=== PATIENT | male | born 1945 | race Caucasian/White ===

== ENCOUNTER → 2019-10-21 13:56 | Outpatient (BNVA) | payer MEDICARE, OTHER, SELFPAY | PROVIDERS: Family Provider Family Medicine; PCP Family Medicine; Visit Provider Nurse Practitioner Family | DX: N40.1 Benign prostatic hyperplasia with lower urinary tract symptoms (principal) | CPT/HCPCS: 81001 ==

== ENCOUNTER → 2019-12-20 10:18 | Outpatient (BNVA) | payer MEDICARE, OTHER, SELFPAY | PROVIDERS: Family Provider Family Medicine; PCP Family Medicine; Visit Provider Urology | DX: N40.1 Benign prostatic hyperplasia with lower urinary tract symptoms (principal); R39.14 Feeling of incomplete bladder emptying; R35.8 Other polyuria | CPT/HCPCS: 81001 ==

== ENCOUNTER 2020-03-20 10:55 | Outpatient (CLI) | payer MEDICARE, OTHER, SELFPAY ==
[2020-03-20 12:01] LABS: Basophils # 0.1 10^3/uL (0.0-0.1); Basophils % 0.7 %; Eosinophils # 0.1 10^3/uL (0.0-0.8); Eosinophils % 1.3 %; Hematocrit 44.2 % (42.0-52.0); Hemoglobin 14.6 g/dL (11.7-16.6); Lymphocytes # 1.4 10^3/uL (0.8-4.8); Lymphocytes % 20.2 %; Mean Corpuscular Hemoglobin 30.4 pg (28.0-34.0); Mean Corpuscular Volume 92.1 fL (80-94); Mean Platelet Volume 10.4 fL (7.4-10.4); Monocytes # 0.5 10^3/uL (0.2-0.9); Monocytes % 7.4 %; Nucleated Red Blood Cells % 0 %; Platelet Count 202 10^3/cmm (130-400); Red Cell Distribution Width 13.2 % (12.1-15.1); White Blood Count 7.1 10^3/uL (4.0-10.0)
[2020-03-20 12:17] LABS: Albumin Level 5.1 g/dL (3.5-5.2); Anion Gap 14.1 (5-19); Blood Urea Nitrogen 25 mg/dL (8-23); Calcium 9.5 mg/dL (8.5-10.5); Carbon Dioxide 27 mmol/L (22-29); Chloride 102 mmol/L (98-107); Glucose 101 mg/dL (65-115); Phosphorus 3.7 mg/dL (2.5-4.5); Potassium 4.1 mmol/L (3.5-5.1); Sodium 139 mmol/L (136-145)
[2020-03-20 12:21] LABS: Creatinine Urine, Random 66 mg/dL (39-259); Microalbum Creatinine Ratio Ur 30 mg/dL (0-20); Microalbumin Random Urine 2 ug/dL (0-20)
[2020-03-20 13:37] LABS: Calcium 9.6 mg/dL (8.5-10.5); Parathyroid Hormone 33.1 pg/mL (15-65)
== END 2020-03-20 10:56 | disposition home or self-care (01) ==
LOC: LAB 11:01
PROVIDERS: PCP Family Medicine; Visit Provider Internal Medicine Nephrology
DX: N18.3 Chronic kidney disease, stage 3 (moderate) (principal)
CPT/HCPCS: 36415; 80069; 82044; 82310; 83970; 85025

== ENCOUNTER 2020-05-08 15:32 | Outpatient (CLI) | payer OTHER, SELFPAY ==
--- NOTE | 2020-05-08 | US_ITS ---
WS: [id number] RENAL ULTRASOUND Urinary bladder ultrasound HISTORY: CYST COMPARISON: 06/14/2019 TECHNIQUE: 2-D and color Doppler imaging of the kidney submitted. Right kidney: 9.1 cm x 4.9 cm x 4.2 cm. Normal size kidney. Exophytic cyst from the upper pole measures 2.8 x 3.4 x 2.9 cm. Similar to the pr ior study. No hydronephrosis. There is additional smaller cyst from the inferior kidney. Left kidney: 12.1 cm x 5.0 cm x 6.4 cm. Normal size kidney. There is a large cyst from the superior kidney measures at least 13.7 x 16.4 cm. Similar to the prior study. There are additional smaller cysts. No solid masses. Aorta: Normal. Urinary Bladder: Moderately well distended urinary bladder. There are multiple diverticula from the b ladder. From the dome of the bladder is a diverticulum measuring 2.8 x 2.0 x 3.5 cm. Additional small er diverticulum from the RIGHT lateral bladder wall. Mild hypertrophy of the bladder wall. Prevoid volume 300 mL. Post void volume 214 mL. US/US renal BI with bladder IMPRESSION: 1. Large bilateral renal cysts with no hydronephrosis. Similar in size and yovana earance as to 06/14/2019. 2. Moderate post void residual in the urinary bladder. 3. Numerous bladder diverticula. Mild bladder wall hypertrophy.
== END 2020-05-08 15:33 | disposition home or self-care (01) ==
LOC: US 15:32
PROVIDERS: PCP Family Medicine; Visit Provider Registered Nurse
DX: N28.1 Cyst of kidney, acquired (principal); N32.3 Diverticulum of bladder
CPT/HCPCS: 76770; 76857

== ENCOUNTER → 2020-05-22 10:39 | Outpatient (BNVA) | payer OTHER, SELFPAY | PROVIDERS: PCP Family Medicine; Visit Provider Family Medicine | DX: I10 Essential (primary) hypertension (principal) | CPT/HCPCS: 80048 ==

== ENCOUNTER → 2020-07-10 10:52 | Outpatient (BNVA) | payer MEDICARE, OTHER, SELFPAY | PROVIDERS: PCP Family Medicine; Visit Provider Urology | DX: N40.1 Benign prostatic hyperplasia with lower urinary tract symptoms (principal); R39.14 Feeling of incomplete bladder emptying; R35.8 Other polyuria | CPT/HCPCS: 81001 ==

== ENCOUNTER 2021-03-27 12:43 | Outpatient (CLI) | payer MEDICARE, OTHER, SELFPAY ==
--- NOTE | 2021-03-27 13:00 | MR_ITS ---
WS: [id number] MRI LUMBAR SPINE NONCONTRAST HISTORY: increasing pain/weakness left leg COMPARISON: 04/29/2014 TECHNIQUE: Sagittal and axial multisequence imaging is submitted. Increase in thoracic kyphosis and cervical lordosis. Retrolisthesis of L2, L3 and L4 by 2 mm. Mild reactive marrow edema in the endplates of L2 and L3. No compression fractures. Moderate to severe disc space narrowing and desiccation throughout the lumbar spine. Moderate progres dawn of degenerative changes since 2013. Conus terminates normally at L1-2 disc level. L1-L2: Mild bilateral facet joint arthritis and ligamentum flavum hypertrophy. No significant stenosi s. L2-L3: Diffuse annular disc bulging and osteophytic ridging with moderate ligamentum flavum hypertrop hy and facet arthritis. Disc extends asymmetrically into the RIGHT foramen. Mild central stenosis. Mo derate RIGHT lateral recess stenosis and mild on the LEFT with mild foraminal narrowing. Mild encroac hment upon the RIGHT L3 nerve root. L3-L4: Diffuse moderate annular disc bulging and osteophytic ridging. Moderate bilateral facet joint arthritis and ligamentum flavum hypertrophy. Disc and osteophyte encroachment into the lateral recess es and subarticular foramen and neural foramen. Moderate bilateral foraminal stenosis. L4-L5: Moderate annular disc bulging and osteophytic ridging. Ligamentum flavum hypertrophy and facet arthritis. There is disc encroachment into the lateral recesses bilaterally and foramen. Disc contac ts the L5 nerve roots bilaterally with additional moderate bilateral foraminal stenosis. L5-S1: Diffuse annular disc bulging and facet arthritis. Central disc protrusion. Mild bilateral fora shahab narrowing. Large bilateral renal cysts. Largest cyst is incompletely visualized involving the LEFT kidney. MR/MR lumbar spine wo con* [id number] IMPRESSION: 1. Mild progression of multilevel stenoses since 04/29/2014. 2. Mild central stenosis at L2-3 with moderate RIGHT lateral recess stenosis. Mild encroachment upon the RIGHT L3 nerve root. 3. Moderate bilateral foraminal stenosis at L3-4 due to combination of disc di sease, osteophytes and facet disease. 4. Disc and osteophyte encroachment into the lateral recesses and foramina marek aterally at L4-5 with contact on the L5 nerve roots. Moderate bilateral foramin al stenosis. 5. Central disc protrusion with mild bilateral foraminal stenosis at L5-S1.
== END 2021-03-27 12:44 | disposition home or self-care (01) ==
LOC: RADSHAW 12:47
PROVIDERS: PCP Family Medicine; Visit Provider Family Medicine
DX: M79.605 Pain in left leg (principal); M62.81 Muscle weakness (generalized); M48.061 Spinal stenosis, lumbar region without neurogenic claudication; M51.27 Other intervertebral disc displacement, lumbosacral region; M48.07 Spinal stenosis, lumbosacral region; M25.78 Osteophyte, vertebrae
CPT/HCPCS: 72148

== ENCOUNTER → 2021-04-17 16:06 | Outpatient (BNVA) | payer MEDICARE, OTHER, SELFPAY | PROVIDERS: PCP Family Medicine; Referring Provider Family Medicine; Visit Provider Orthopaedic Surgery | DX: M48.061 Spinal stenosis, lumbar region without neurogenic claudication (principal) | CPT/HCPCS: 72110 ==

== ENCOUNTER → 2021-04-23 08:27 | Outpatient (BNVA) | payer MEDICARE, OTHER, SELFPAY | PROVIDERS: PCP Family Medicine; Visit Provider Anesthesiology Pain Medicine | DX: G89.29 Other chronic pain (principal); M48.062 Spinal stenosis, lumbar region with neurogenic claudication; M48.061 Spinal stenosis, lumbar region without neurogenic claudication; M47.816 Spondylosis without myelopathy or radiculopathy, lumbar region; Z79.891 Long term (current) use of opiate analgesic | CPT/HCPCS: 99205 ==

== ENCOUNTER 2021-05-21 06:00 | Outpatient (RCR) | payer MEDICARE, OTHER, SELFPAY | END 2021-06-05 23:59 | disposition home or self-care (01) | LOC: SPT 06:00 | PROVIDERS: PCP Family Medicine; Referring Provider Anesthesiology Pain Medicine; Visit Provider Anesthesiology Pain Medicine | DX: M54.5 Low back pain (principal); G89.29 Other chronic pain | CPT/HCPCS: 97110; 97161; G0283 ==

== ENCOUNTER 2021-06-06 06:00 | Outpatient (RCR) | payer MEDICARE, OTHER, SELFPAY | END 2021-07-05 23:59 | disposition home or self-care (01) | LOC: SPT 06:00 | PROVIDERS: PCP Family Medicine; Referring Provider Anesthesiology Pain Medicine; Visit Provider Anesthesiology Pain Medicine | DX: M54.5 Low back pain (principal); G89.29 Other chronic pain | CPT/HCPCS: 97110; G0283 ==

== ENCOUNTER → 2021-06-25 09:41 | Outpatient (BNVA) | payer MEDICARE, OTHER, SELFPAY | PROVIDERS: PCP Family Medicine; Visit Provider Anesthesiology Pain Medicine | DX: M48.062 Spinal stenosis, lumbar region with neurogenic claudication (principal); M48.061 Spinal stenosis, lumbar region without neurogenic claudication; M47.816 Spondylosis without myelopathy or radiculopathy, lumbar region; M79.604 Pain in right leg; M79.605 Pain in left leg; Z79.891 Long term (current) use of opiate analgesic | CPT/HCPCS: 99213 ==

== ENCOUNTER → 2021-07-09 10:46 | Outpatient (BNVA) | payer MEDICARE, OTHER, SELFPAY | PROVIDERS: PCP Family Medicine; Visit Provider Urology | DX: N40.1 Benign prostatic hyperplasia with lower urinary tract symptoms (principal); R39.14 Feeling of incomplete bladder emptying; N32.81 Overactive bladder | CPT/HCPCS: 81003 ==

== ENCOUNTER 2021-12-26 12:26 | Emergency (ER) | payer MEDICARE, OTHER, SELFPAY ==
[2021-12-26 12:43] VITALS: BP 151/91; PULSE 84; RESP 20; TEMP 36.6; O2SAT 95; BMI 33.5
[2021-12-26 12:46] VITALS: O2SAT 96
--- NOTE | 2021-12-26 12:46 | XRR_ITS ---
PROCEDURE INFORMATION: Exam: XR Chest Exam date and time: 12/26/2021 12:00 PM Age: 76 years old Clinical indication: Cough and dyspnea; Additional info: Dyspnea/cough TECHNIQUE: Imaging protocol: XR of the chest. Views: 1 view. Total images: 1 COMPARISON: CR Chest 1 [place] [id number] 06/04/2017 8:47 PM FINDINGS: Lungs: No acute focal pulmonary opacities are detected. Pleural spaces: Unremarkable. No pleural effusion. No pneumothorax. Heart/Mediastinum: Heart is enlarged but stable when compared to the prior exam. Vasculature: Atherosclerosis is evident. Bones/joints: Osseous structures are unchanged from the prior exam. XR/XR chest 1V portable [id number] IMPRESSION: 1. Heart is enlarged but stable when compared to the prior exam. 2. No acute focal pulmonary opacities are detected.
--- NOTE | 2021-12-26 13:01 | ECG_ITS ---
[facility] Test Date: 2021-12-26 Pat Name: Blake Head Department: Room: Gender: Male Manager Procurement: : 1945 Requested By: Shahzad Us Order Number: [id number] Kinza MD: Jonnie Chen M.D. Measurements Intervals [place] Rate: 77 P: [place]: QRS: 34 QRSD: 93 T: 31 QT: 391 QTc: 444 Interpretive Statements ATRIAL FIBRILLATION ABNORMAL RHYTHM ECG Compared to ECG 06/04/2017 20:43:34 No significant changes Electronically Signed On 12-26-2021 19:18:54 CDT by Jonnie Chen M.D. [id number]
--- NOTE | 2021-12-26 13:02 | W.ED.COVID ---
HPI - COVID General: Chief Complaint: COVID symptoms Stated Complaint: Fever, COVID Symptoms Time Seen by Provider: 12/26/21 12:46 Source: patient and family Mode of arrival: ambulatory Triage information: Has fever, cough or shortness of breath. History of Present Illness: 76-year-old male presents emergency room with a nonproductive cough for the last 10 days fever with temps up to 101 and 102 at home. Took Tylenol this morning and fevers resolved. He is complained of myalgias also had diarrhea. He was seen by his PCP and started on Zithromax for an upper respiratory infection he has been vaccinated for COVID but is not been known to have COVID by positive testing in the past. MD complaint: has COVID symptoms COVID 19 common symptoms: positive fever(s), chills, cough, non-productive cough, dyspnea, fatigue, body aches and diarrhea; negative throat pain or nasal congestion COVID 19 other sytmptoms: negative chest pain or requiring oxygen Onset (ago): day(s) (10) Severity: mild Pertinent comorbid conditions: chronic kidney disease and other (Congestive heart failure, atrial fibrillation) COVID Results: SARS-CoV-2 (PCR) Detected (NOT DETECT) A 12/26/21 13:15 12/26/21 Coronavirus Type 229E (PCR) Not detected (NOT DETECT) 12/26/21 13:15 12/26/21 Review of Systems Const: Reports: fever(s), chills, body aches and fatigue ENMT: Denies: throat pain, ear or mastoid pain, nasal discharge or nasal congestion Card: Denies: chest pain, edema, dyspnea on exertion or orthopnea Resp: Reports: dyspnea and non-productive cough GI: Reports: diarrhea : Denies: flank pain, dysuria, urinary frequency or urinary urgency Skin/Breast: Denies: rash or pruritus PFSH ED PFSH: Medical History Allergic rhinitis ASHD (arteriosclerotic heart disease) Atrial fibrillation Benign prostatic hyperplasia with lower urinary tract symptoms CVA (cerebral vascular accident) DDD (degenerative disc disease) Dementia Depression Esophageal reflux Hearing loss History of nonmelanoma skin cancer Hyperlipidemia Hypertension Osteoarthritis Osteoarthritis of left knee Polyuria Spinal stenosis at L4-L5 level Venous insufficiency Surgical History S/P cataract surgery S/P cholecystectomy Family History Mother , 88 Diabetes CAD (coronary artery disease) Father , 80 CAD (coronary artery disease) Stroke Social History Smoking and tobacco status: never smoked Alcohol intake: never Adopted: No Caregiver/support person: No Lives independently: No Household members: spouse Marital status: Current occupational status: retired History of recent travel: No Current gender identity: Male Physical Exam Const: GENERAL APPEARANCE: cooperative and comfortable ORIENTATION/CONSCIOUSNESS: Yes awake HENMT: COMMON NORMALS: normocephalic, atraumatic and hearing grossly normal bilaterally HEAD & SCALP: normocephalic and atraumatic Neck/C-Spine: COMMON NORMALS: no JVD Resp: COMMON NORMALS: normal respiratory effort, No retractions, No use of accessory muscles and clear to auscultation bilaterally AUSCULTATION: clear to auscultation bilaterally Cardio: COMMON NORMALS: no JVD, regular rate and No murmurs present (Cardio) RATE: regular rate RHYTHM: abnormal rhythm irregularly irregular GI: COMMON NORMALS: Soft to palpation and No hepatosplenomegaly present AUSCULTATION: Yes normoactive bowel sounds PALPATION: Yes Soft to palpation, No Tenderness to palpation present (GI), No Guarding due to palpation present (GI) and Yes No hepatosplenomegaly present Extremity: COMMON NORMALS: normal to inspection, capillary refill normal, no clubbing, cyanosis or edema, no calf tenderness and no pedal edema Skin: COMMON NORMALS: no rashes or lesions noted GENERAL SKIN EXAM: no rashes or lesions noted Course Vital Signs: Vital signs: Vital Signs Temperature 97.9 F 12/26/21 12:43 Pulse Rate 85 12/26/21 14:16 Respiratory Rate 16 12/26/21 14:16 Blood Pressure 136/78 12/26/21 14:16 Pulse Oximetry 94 12/26/21 14:16 MDM - COVID Medical Decision Making Covid positive we will set him up for outpatient monoclonal antibody test. He is essentially asymptomatic because he has been vaccinated he tested without symptoms on a rapid yesterday and was positive so he will definitely still be within a 7-day range. Monoclonal antibodies should prevent any worsening of the disease. Recheck if has any problems or shortness of breath. Medical Records I reviewed the patient's medical records. Lab Data I reviewed the patient's lab results. : 12/26/21 13:15 12/26/21 13:15 Radiology Impressions Chest X-Ray 12/26/21 12:46 IMPRESSION: 1. Heart is enlarged but stable when compared to the prior exam. 2. No acute focal pulmonary opacities are detected. Laboratory Results WBC 7.6 10^3/uL (4.0-10.0) 12/26/21 13:15 RBC 4.75 10^6/uL (4.1-5.3) 12/26/21 13:15 Hgb 14.1 g/dL (11.7-16.6) 12/26/21 13:15 Hct 42.3 % (42.0-52.0) 12/26/21 13:15 MCV 89.1 fl (80-94) 12/26/21 13:15 MCH 29.7 pg (28.0-34.0) 12/26/21 13:15 MCHC 33.3 g/dL (30.0-36.0) 12/26/21 13:15 RDW 13.2 % (12.1-15.1) 12/26/21 13:15 Plt Count 226 10^3/cmm (130-400) 12/26/21 13:15 MPV 9.8 fL (7.4-10.4) 12/26/21 13:15 Neut % (Auto) 83.3 % 12/26/21 13:15 Lymph % (Auto) 7.3 % 12/26/21 13:15 Taliaferro % (Auto) 8.6 % 12/26/21 13:15 Eos % (Auto) 0.0 % 12/26/21 13:15 Baso % (Auto) 0.1 % 12/26/21 13:15 Neut # (Auto) 6.31 10^3/uL (1.8-7.7) 12/26/21 13:15 Lymph # (Auto) 0.6 10^3/uL (0.8-4.8) L 12/26/21 13:15 Tal[place]ferro # (Auto) 0.7 10^3/uL (0.2-0.9) 12/26/21 13:15 Eos # (Auto) 0.0 10^3/uL (0.0-0.8) 12/26/21 13:15 Baso # (Auto) 0.0 10^3/uL (0.0-0.1) 12/26/21 13:15 Nucleated RBC % (auto) 0 % 12/26/21 13:15 Nucleated RBCs # 0.0 /100WBC 12/26/21 13:15 Sodium 133 mmol/L (136-145) L 12/26/21 13:15 Potassium 4.1 mmol/L (3.5-5.1) 12/26/21 13:15 Chloride 98 mmol/L (98-107) 12/26/21 13:15 Carbon Dioxide 24 mmol/L (22-29) 12/26/21 13:15 Anion Gap 15.1 (5-19) 12/26/21 13:15 BUN 25 mg/dL (8-23) H 12/26/21 13:15 Creatinine 1.8 mg/dL (0.7-1.2) H 12/26/21 13:15 GFR Calculation Not Reportable 12/26/21 13:15 Glucose 106 mg/dL (65-115) 12/26/21 13:15 Calculated Osmolality 281 mOsm/kg (285-295) L 12/26/21 13:15 Calcium 8.9 mg/dL (8.5-10.5) 12/26/21 13:15 Total Bilirubin 0.7 mg/dL (0.15-1.2) 12/26/21 13:15 AST 35 U/L (0-40) 12/26/21 13:15 ALT 22 U/L (0-41) 12/26/21 13:15 Alkaline Phosphatase 36 IU/L (40-130) L 12/26/21 13:15 Troponin T Baseline 30 ng/L (0-15) H 12/26/21 13:15 Troponin T 120 Minute 26.78 ng/L (0-15) H 12/26/21 15:19 Delta Troponin T -3.22 ABS# (0-10) L 12/26/21 15:19 NT-Pro-B Natriuret Pep 1686 pg/mL (0-450) H 12/26/21 13:15 Total Protein 6.8 g/dL (6.6-8.7) 12/26/21 13:15 Albumin 4.1 g/dL (3.5-5.2) 12/26/21 13:15 Globulin 2.7 g/dL (1.3-4.6) 12/26/21 13:15 Coronavirus 229E (PCR) Not detected (NOT DETECT) 12/26/21 13:15 SARS-CoV-2 (PCR) Detected (NOT DETECT) A 12/26/21 13:15 SARS-CoV-2 (PCR) Detected (NOT DETECT) A 12/26/21 13:15 12/26/21 Coronavirus Type 229E (PCR) Not detected (NOT DETECT) 12/26/21 13:15 12/26/21 Discharge Plan Discharge Patient Disposition: Home Clinical Impression: COVID-19 Condition: Stable Prescriptions: No Action coenzyme Q10 [Co Q-10] 10 mg capsule 30 mg PO DAILY 0RF acetaminophen [Arthritis Pain Relief (acetam)] 650 mg tablet extended release 650 mg PO Q8H PRN (Reason: Pain) 0RF Eliquis 5 mg tablet 5 mg PO BID 0RF tamsulosin [Flomax] 0.4 mg capsule 0.8 mg PO QPM 0RF lisinopril 40 mg tablet 40 mg PO QAM 0RF metoprolol succinate 200 mg tablet extended release 24 hr 200 mg PO BEDTIME 0RF nitroglycerin [Nitrostat] 0.4 mg tablet, sublingual 0.4 mg SUBLINGUAL Q5M PRN (Reason: Chest Pain) 0RF Prostate Health 160-100-100 mg-unit-mcg tablet 1 tab PO DAILY 0RF trazodone 50 mg tablet 50 mg PO BEDTIME 0RF ascorbic acid (vitamin C) 1,000 mg tablet 1 g PO DAILY 0RF hydralazine 50 mg tablet 50 mg PO QAM 0RF loratadine 10 mg tablet 10 mg PO DAILY 0RF fluticasone propionate 50 mcg/actuation spray,suspension 2 spray intranasal DAILY 0RF finasteride 5 mg tablet 5 mg PO BEDTIME 0RF promethazine-codeine 6.25-10 mg/5 mL syrup 5 ml PO Q6H PRN (Reason: cough) Qty: 180 0RF benzonatate 200 mg capsule 200 mg PO TID PRN (Reason: cough) Qty: 30 1RF diltiazem HCl 180 mg capsule,extended release 24 hr 180 mg PO DAILY 0RF famotidine 20 mg tablet 20 mg PO BID 0RF Anti-V Formula 1 tab PO DAILY 0RF azithromycin 250 mg tablet See Rx Instructions .ROUTE .COMPLEX 0RF Rx Instructions: as directed simvastatin 20 mg tablet 10 mg PO BEDTIME 0RF Discharge Orders: Discharge ED (Routine); Ordered 12/26/21 Ordered By: Shahzad Aguilar Referrals: Candace Ace MD [Primary Care Provider] - Discharge Diet: Usual diet Discharge Activity: Increase activity as tolerated Patient Instructions: COVID-19 (Coronavirus Disease 2019) (ED), Opioid Safety Activity Restrictions/Additional Instructions: Turn if you have further problems. Coding Level of Care Code ED Finishing Lab Technician for Bibi Fwd Exam Comprehensive
[2021-12-26 13:16] VITALS: BP 140/82; PULSE 85; RESP 18; O2SAT 96
[2021-12-26 13:35] LABS: Basophils % 0.1 %; Hematocrit 42.3 % (42.0-52.0); Hemoglobin 14.1 g/dL (11.7-16.6); Lymphocytes # 0.6 10^3/uL (0.8-4.8); Lymphocytes % 7.3 %; Mean Corpuscular HGB Conc 33.3 g/dL (30.0-36.0); Mean Corpuscular Hemoglobin 29.7 pg (28.0-34.0); Mean Corpuscular Volume 89.1 fl (80-94); Mean Platelet Volume 9.8 fL (7.4-10.4); Monocytes # 0.7 10^3/uL (0.2-0.9); Monocytes % 8.6 %; Neutrophils # 6.31 10^3/uL (1.8-7.7); Neutrophils % 83.3 %; Nucleated Red Blood Cells % 0 %; Platelet Count 226 10^3/cmm (130-400); Red Blood Count 4.75 10^6/uL (4.1-5.3); Red Cell Distribution Width 13.2 % (12.1-15.1); White Blood Count 7.6 10^3/uL (4.0-10.0)
[2021-12-26 13:59] LABS: Troponin(5th) Baseline 30 ng/L (0-15)
[2021-12-26 14:06] LABS: Alanine Aminotransferase 22 U/L (0-41); Albumin Level 4.1 g/dL (3.5-5.2); Alkaline Phosphatase 36 IU/L (40-130); Anion Gap 15.1 (5-19); Aspartate Amino Transferase 35 U/L (0-40); Blood Urea Nitrogen 25 mg/dL (8-23); Calcium 8.9 mg/dL (8.5-10.5); Carbon Dioxide 24 mmol/L (22-29); Chloride 98 mmol/L (98-107); Globulin 2.7 g/dL (1.3-4.6); Glucose 106 mg/dL (65-115); NT Pro B Type Natriuretic Pept 1686 pg/mL (0-450); Osmolality Calculated 281 mOsm/kg (285-295); Potassium 4.1 mmol/L (3.5-5.1); Sodium 133 mmol/L (136-145); Total Bilirubin 0.7 mg/dL (0.15-1.2); Total Protein 6.8 g/dL (6.6-8.7)
[2021-12-26 14:16] VITALS: BP 136/78; PULSE 85; RESP 16; O2SAT 94
--- NOTE | 2021-12-26 15:01 | ECG_ITS ---
[facility] Test Date: 2021-12-26 Pat Name: Blake Head Department: Room: Gender: Male Theatre Director: : 1945 Requested By: Shahzad Us Order Number: [id number] Kinza MD: Theresa Julien M.D. Measurements Intervals [place] Rate: 88 P: [place]: QRS: 64 QRSD: 104 T: 31 QT: 371 QTc: 450 Interpretive Statements ATRIAL FIBRILLATION LOW QRS VOLTAGE IN PRECORDIAL LEADS [QRS DEFLECTION < 1.0 mV IN CHEST LEADS] Compared to ECG 12/26/2021 13:22:26 Low QRS voltage now present Electronically Signed On 12-26-2021 18:02:25 CDT by Theresa Julien M.D. [id number]
[2021-12-26] MEDS: FUROsemide 10 mg/mL SDV 4mL 40 MG IVP (15:34)
[2021-12-26 15:50] LABS: Troponin 5 2HR 26.78 ng/L (0-15)
[2021-12-26 15:53] LABS: Troponin 5 2HR Delta -3.22 ABS# (0-10)
[2021-12-26 15:56] LABS: Adenovirus Not Detected (NOT DETECT); Chlamydia Pneumoniae Not Detected (NOT DETECT); Coronavirus 229E,HKU1,NL63,OC4 Not Detected (NOT DETECT); Human Metapneumovirus Not Detected (NOT DETECT); Human Rhinovirus/Enterovirus Not Detected (NOT DETECT); Influenza A Not Detected (NOT DETECT); Influenza A H1 Not Detected (NOT DETECT); Influenza A H1-2009 Not Detected (NOT DETECT); Influenza A H3 Not Detected (NOT DETECT); Influenza B Not Detected (NOT DETECT); Mycoplasma Pneumoniae Not Detected (NOT DETECT); Parainfluenza Virus Type 1 Not Detected (NOT DETECT); Parainfluenza Virus Type 2 Not Detected (NOT DETECT); Parainfluenza Virus Type 3 Not Detected (NOT DETECT); Parainfluenza Virus Type 4 Not Detected (NOT DETECT); Respiratory Syncytial Virus A Not Detected (NOT DETECT); Respiratory Syncytial Virus B Not Detected (NOT DETECT); SARS-COV-2 Detected (NOT DETECT)
--- NOTE | 2021-12-28 12:00 | PC.NURSE ---
Pt contacted [id number] to inform of COVID Positive test result. Pt's family had already been made aware of test result by ER physician.
== END 2021-12-26 16:41 | disposition home or self-care (01) ==
PROVIDERS: Emergency Provider Family Medicine; PCP Family Medicine
DX: U07.1 COVID-19 (principal); Z79.01 Long term (current) use of anticoagulants; I10 Essential (primary) hypertension; E78.5 Hyperlipidemia, unspecified; I25.10 Atherosclerotic heart disease of native coronary artery without angina pectoris; Z86.73 Personal history of transient ischemic attack (TIA), and cerebral infarction without residual deficits
CPT/HCPCS: 71045; 80053; 83880; 84484; 85025; 87635; 93005; 96374; 99284; J1940

== ENCOUNTER → 2022-02-20 10:04 | Outpatient (BNVA) | payer MEDICARE, OTHER, SELFPAY | PROVIDERS: PCP Family Medicine; Visit Provider Internal Medicine Cardiovascular Disease | DX: I48.0 Paroxysmal atrial fibrillation (principal); Z79.01 Long term (current) use of anticoagulants; I10 Essential (primary) hypertension; I25.10 Atherosclerotic heart disease of native coronary artery without angina pectoris; E78.2 Mixed hyperlipidemia; Z86.73 Personal history of transient ischemic attack (TIA), and cerebral infarction without residual deficits | CPT/HCPCS: 99214 ==

== ENCOUNTER → 2022-06-24 11:42 | Outpatient (BNVA) | payer MEDICARE, OTHER, SELFPAY | PROVIDERS: PCP Family Medicine; Visit Provider Family Medicine | DX: I10 Essential (primary) hypertension (principal); I48.91 Unspecified atrial fibrillation; E03.9 Hypothyroidism, unspecified; M48.062 Spinal stenosis, lumbar region with neurogenic claudication; I48.0 Paroxysmal atrial fibrillation; N40.1 Benign prostatic hyperplasia with lower urinary tract symptoms; R39.14 Feeling of incomplete bladder emptying; R40.0 Somnolence | CPT/HCPCS: 80053; 84439; 84443 ==

== ENCOUNTER → 2022-07-22 14:00 | Outpatient (BNVA) | payer MEDICARE, OTHER, SELFPAY | PROVIDERS: PCP Family Medicine; Visit Provider Urology | DX: I63.419 Cerebral infarction due to embolism of unspecified middle cerebral artery (principal); R39.14 Feeling of incomplete bladder emptying; N32.81 Overactive bladder; N40.1 Benign prostatic hyperplasia with lower urinary tract symptoms | CPT/HCPCS: 51798; 81003; 99213 ==

== ENCOUNTER → 2022-08-28 09:55 | Outpatient (BNVA) | payer MEDICARE, OTHER, SELFPAY | PROVIDERS: PCP Family Medicine; Visit Provider Internal Medicine Cardiovascular Disease | DX: I25.10 Atherosclerotic heart disease of native coronary artery without angina pectoris (principal); I48.0 Paroxysmal atrial fibrillation; Z79.01 Long term (current) use of anticoagulants; E78.2 Mixed hyperlipidemia; I10 Essential (primary) hypertension; Z86.73 Personal history of transient ischemic attack (TIA), and cerebral infarction without residual deficits | CPT/HCPCS: 99214 ==

== ENCOUNTER 2022-10-21 20:00 | Outpatient (CLI) | payer MEDICARE, OTHER, SELFPAY | END 2022-10-21 20:01 | disposition home or self-care (01) | LOC: SLEEP 10-22 05:43 | PROVIDERS: PCP Family Medicine; Visit Provider Family Medicine | DX: G47.33 Obstructive sleep apnea (adult) (pediatric) (principal) | CPT/HCPCS: 95810 ==

== ENCOUNTER → 2022-12-09 14:50 | Outpatient (BNVA) | payer MEDICARE, OTHER, SELFPAY | PROVIDERS: PCP Family Medicine; Visit Provider Family Medicine | DX: N62 Hypertrophy of breast (principal); N64.4 Mastodynia; M48.062 Spinal stenosis, lumbar region with neurogenic claudication; G47.33 Obstructive sleep apnea (adult) (pediatric); L29.1 Pruritus scroti | CPT/HCPCS: 84403 ==

== ENCOUNTER 2023-01-06 13:26 | Outpatient (CLI) | payer MEDICARE, OTHER, SELFPAY ==
--- NOTE | 2023-01-06 13:42 | MM_ITS ---
WS: [id number] BILATERAL 3D TOMOSYNTHESIS DIGITAL DIAGNOSTIC MAMMOGRAPHY WITH CAD CLINICAL INFORMATION: RT BREAST MASS HISTORY: RIGHT breast lump TECHNIQUE: Bilateral CC, MLO, and ML views. FINDINGS: Scattered fibroglandular densities bilaterally. Increased radiodensity subareolar RIGHT breast in the area of palpable concern. This is asymmetric compared to the LEFT. Ultrasound described below. ULTRASOUND BREAST RIGHT TECHNIQUE: Ultrasound right breast focused area of concern. CLINICAL INFORMATION: RT BREAST MASS FINDINGS: Ultrasound RIGHT breast subareolar area of concern. Dense shadowing subareolar parenchymal tissue typ ical for gynecomastia. This is asymmetric to the LEFT and is a benign finding. No evidence of suspici ous mass or lesion to target for biopsy. No other suspicious findings. MM/[place] [id number] IMPRESSION: RIGHT breast nodularity most compatible with benign nodular gynecom astia. If condition worsens or pain increases recommend return for additional e valuation BI-RADS: 2-Benign FOLLOW UP: See Report
== END 2023-01-06 13:27 | disposition home or self-care (01) ==
LOC: RAD 13:30
PROVIDERS: PCP Family Medicine; Visit Provider Family Medicine
DX: N63.41 Unspecified lump in right breast, subareolar (principal)
CPT/HCPCS: 76642; 77062; G0279

== ENCOUNTER 2023-01-13 05:57 | Outpatient (CLI) | payer MEDICARE, OTHER, SELFPAY | END 2023-01-13 05:58 | disposition home or self-care (01) | LOC: SLEEP 01-14 05:57 | PROVIDERS: PCP Family Medicine; Visit Provider Family Medicine | DX: G47.33 Obstructive sleep apnea (adult) (pediatric) (principal) | CPT/HCPCS: 95811 ==

== ENCOUNTER → 2023-03-10 14:05 | Outpatient (BNVA) | payer MEDICARE, OTHER, SELFPAY | PROVIDERS: PCP Family Medicine; Visit Provider Family Medicine | DX: I10 Essential (primary) hypertension (principal); M48.062 Spinal stenosis, lumbar region with neurogenic claudication; G47.33 Obstructive sleep apnea (adult) (pediatric) | CPT/HCPCS: 80048 ==

== ENCOUNTER → 2023-03-24 10:05 | Outpatient (BNVA) | payer MEDICARE, OTHER, SELFPAY | PROVIDERS: PCP Family Medicine; Visit Provider Specialist | DX: I25.10 Atherosclerotic heart disease of native coronary artery without angina pectoris (principal); I10 Essential (primary) hypertension; I48.0 Paroxysmal atrial fibrillation; Z79.01 Long term (current) use of anticoagulants | CPT/HCPCS: 99214 ==

== ENCOUNTER → 2023-04-22 11:05 | Outpatient (BNVA) | payer MEDICARE, OTHER, SELFPAY | PROVIDERS: PCP Family Medicine; Visit Provider Dermatology | DX: L98.499 Non-pressure chronic ulcer of skin of other sites with unspecified severity (principal); L57.0 Actinic keratosis; I87.2 Venous insufficiency (chronic) (peripheral) | CPT/HCPCS: 11102; 17000; 17003; 99213 ==

== ENCOUNTER → 2023-05-01 13:13 | Outpatient (BNVA) | payer MEDICARE, OTHER, SELFPAY | PROVIDERS: PCP Family Medicine; Visit Provider Nurse Practitioner Family | DX: I96 Gangrene, not elsewhere classified (principal); I87.2 Venous insufficiency (chronic) (peripheral); L97.822 Non-pressure chronic ulcer of other part of left lower leg with fat layer exposed | CPT/HCPCS: 97597; 99213 ==

== ENCOUNTER → 2023-05-06 14:26 | Outpatient (BNVA) | payer MEDICARE, OTHER, SELFPAY | PROVIDERS: PCP Family Medicine; Visit Provider Nurse Practitioner Family | DX: I96 Gangrene, not elsewhere classified (principal); I87.2 Venous insufficiency (chronic) (peripheral); L97.822 Non-pressure chronic ulcer of other part of left lower leg with fat layer exposed | CPT/HCPCS: 97597; A6210; A6252 ==

== ENCOUNTER 2023-05-09 13:16 | Outpatient (CLI) | payer MEDICARE, OTHER, SELFPAY ==
--- NOTE | 2023-05-09 13:30 | USCV_ITS ---
Blake Head Age: 78 Gender: M : 1945 Exam Date: 05/09/2023 14:46 Ordering Phys: Inés Dawkins NP Technologist: OCTAVIO Exam Location: [facility] – [place] Indication: HISTORY: PROCEDURES: FINDINGS: The veins were found to be easily compressible with spontaneous blood flow. Non pulsatile flow pattern. Significant venous reflux of greater than 40 ms were noted at the proximal, mid and below-knee segments of the greater saphenous vein on the right side. These venous segments were measuring anywhere from 0.44 to 0.68 cm in diameter. Except for the mid greater saphenous vein, other venous segments of her ability supervision on the left side, the greater saphenous vein segments distal to the saphenofemoral junction, proximal, mid, distal and below-knee segments were found to have significant insufficiency. The segments are measuring anywhere from 0.61 to 0.93 cm. They are found to be superficial, less than 1 cm deep from the surface except for the distal greater saphenous vein, which was found to be 1.39 cm of deep from the surface. CONCLUSIONS 1. No evidence of DVT in the above-mentioned identifiable veins. 2. Significant venous reflux of greater than 500 ms where noted bilaterally. But most of the venous segments were found to be less than 1 cm deep from the surface except for the mid greater sinus vein on the right side and below-knee great saphe nous vein on the left side. The venous dimensions, depth from the surface and the reflux times are as mentioned above. Dr Jonnie Chen MD [facility] (Electronically Signed) Final Date: 09 May 2023 17:34 S
== END 2023-05-09 13:17 | disposition home or self-care (01) ==
LOC: RAD 13:24
PROVIDERS: PCP Family Medicine; Visit Provider Nurse Practitioner Family
DX: L97.829 Non-pressure chronic ulcer of other part of left lower leg with unspecified severity (principal); I87.2 Venous insufficiency (chronic) (peripheral)
CPT/HCPCS: 93970

== ENCOUNTER 2023-05-16 12:02 | Outpatient (CLI) | payer MEDICARE, OTHER, SELFPAY ==
--- NOTE | 2023-05-16 12:00 | USCV_ITS ---
Blake Head Age: 78 Gender: M : 1945 Exam Date: 05/16/2023 12:42 Ordering Phys: Inés Dawkins NP Technologist: [place] [facility] [place]: le ulcers Risk Factors: Previous Vascular Surgery: RIGHT LEFT Waveform Velocity (cm/s) Velocity (cm/s) Waveform Triphasic 87.1 Iliac Prox 88.3 Triphasic Triphasic 76.5 Iliac Mid 95.1 Triphasic Triphasic 85.0 Iliac Distal 70.5 Triphasic Triphasic 78.1 NOTCH MACHINE OPERATOR 79.5 Triphasic Triphasic 71.1 SFA Prox 76.6 Triphasic Triphasic 79.0 SFA Mid 69.8 Triphasic Triphasic 74.7 SFA Dist 76.1 Triphasic Triphasic 55.5 POP 49.2 Triphasic Triphasic 72.5 ORE BRIDGE OPERATOR 95.6 Triphasic Triphasic DPA 78.5 Triphasic 1.0 DEANGELO 1.0 FINDINGS Mild to moderate diffuse dense plaques in the iliac, femoral and popliteal arteries bilaterally Normal arterial Doppler waveforms and velocities Resting DEANGELO 1.0 bilaterally CONCLUSIONS Mild to moderate diffuse dense plaques in the iliac, femoral and popliteal arteries bilaterally. Normal resting ABIs bilaterally No evidence of any significant arterial obstruction, based on the above findings. Dr Jonnie Chen MD [facility] (Electronically Signed) Final Date: 16 May 2023 19:55 S
== END 2023-05-16 12:03 | disposition home or self-care (01) ==
PROVIDERS: PCP Family Medicine; Visit Provider Nurse Practitioner Family
DX: L97.829 Non-pressure chronic ulcer of other part of left lower leg with unspecified severity (principal); I70.203 Unspecified atherosclerosis of native arteries of extremities, bilateral legs
CPT/HCPCS: 93925

== ENCOUNTER → 2023-05-20 14:03 | Outpatient (BNVA) | payer MEDICARE, OTHER, SELFPAY | PROVIDERS: PCP Family Medicine; Visit Provider Nurse Practitioner Family | DX: I96 Gangrene, not elsewhere classified (principal); I87.2 Venous insufficiency (chronic) (peripheral); L97.822 Non-pressure chronic ulcer of other part of left lower leg with fat layer exposed | CPT/HCPCS: 97597; A6210; A6252 ==

== ENCOUNTER → 2023-05-22 07:54 | Outpatient (BNVA) | payer MEDICARE, OTHER, SELFPAY | PROVIDERS: PCP Family Medicine; Visit Provider Nurse Practitioner Family | DX: I96 Gangrene, not elsewhere classified (principal); I87.2 Venous insufficiency (chronic) (peripheral); L97.822 Non-pressure chronic ulcer of other part of left lower leg with fat layer exposed | CPT/HCPCS: 29581; A6210; A6251; A6252 ==

== ENCOUNTER → 2023-05-27 10:17 | Outpatient (BNVA) | payer MEDICARE, OTHER, SELFPAY | PROVIDERS: PCP Family Medicine; Visit Provider Nurse Practitioner Family | DX: I96 Gangrene, not elsewhere classified (principal); I87.2 Venous insufficiency (chronic) (peripheral); L97.822 Non-pressure chronic ulcer of other part of left lower leg with fat layer exposed | CPT/HCPCS: 97597; A6210; A6252 ==

== ENCOUNTER → 2023-06-03 10:01 | Outpatient (BNVA) | payer MEDICARE, OTHER, SELFPAY | PROVIDERS: PCP Family Medicine; Visit Provider Nurse Practitioner Family | DX: I96 Gangrene, not elsewhere classified (principal); I87.2 Venous insufficiency (chronic) (peripheral); L97.822 Non-pressure chronic ulcer of other part of left lower leg with fat layer exposed | CPT/HCPCS: 97597; A6210; A6251 ==

== ENCOUNTER → 2023-06-10 13:51 | Outpatient (BNVA) | payer MEDICARE, OTHER, SELFPAY | PROVIDERS: PCP Family Medicine; Visit Provider Nurse Practitioner Family | DX: I96 Gangrene, not elsewhere classified (principal); I87.2 Venous insufficiency (chronic) (peripheral); L97.822 Non-pressure chronic ulcer of other part of left lower leg with fat layer exposed | CPT/HCPCS: 97597; A6252 ==

== ENCOUNTER → 2023-06-17 13:11 | Outpatient (BNVA) | payer MEDICARE, OTHER, SELFPAY | PROVIDERS: PCP Family Medicine; Visit Provider Nurse Practitioner Family | DX: I96 Gangrene, not elsewhere classified (principal); I87.2 Venous insufficiency (chronic) (peripheral); L97.822 Non-pressure chronic ulcer of other part of left lower leg with fat layer exposed; Z09 Encounter for follow-up examination after completed treatment for conditions other than malignant neoplasm | CPT/HCPCS: 97597; A6210 ==

== ENCOUNTER → 2023-06-24 13:04 | Outpatient (BNVA) | payer MEDICARE, OTHER, SELFPAY | PROVIDERS: PCP Family Medicine; Visit Provider Nurse Practitioner Family | DX: I96 Gangrene, not elsewhere classified (principal); I87.2 Venous insufficiency (chronic) (peripheral); L97.822 Non-pressure chronic ulcer of other part of left lower leg with fat layer exposed | CPT/HCPCS: 97597 ==

== ENCOUNTER → 2023-07-01 10:41 | Outpatient (BNVA) | payer MEDICARE, OTHER, SELFPAY | PROVIDERS: PCP Family Medicine; Visit Provider Nurse Practitioner Family | DX: Z09 Encounter for follow-up examination after completed treatment for conditions other than malignant neoplasm (principal) | CPT/HCPCS: 99212 ==

== ENCOUNTER → 2023-07-28 08:56 | Outpatient (BNVA) | payer MEDICARE, OTHER, SELFPAY | PROVIDERS: PCP Family Medicine; Visit Provider Podiatrist Foot & Ankle Surgery | DX: B35.1 Tinea unguium (principal); I73.9 Peripheral vascular disease, unspecified; N18.9 Chronic kidney disease, unspecified; L84 Corns and callosities; M20.41 Other hammer toe(s) (acquired), right foot; M20.42 Other hammer toe(s) (acquired), left foot | CPT/HCPCS: 11055; 11721; 99203 ==

== ENCOUNTER → 2023-08-18 15:27 | Outpatient (BNVA) | payer MEDICARE, OTHER, SELFPAY | PROVIDERS: PCP Family Medicine; Visit Provider Nurse Practitioner Family | DX: I87.2 Venous insufficiency (chronic) (peripheral) (principal); L57.0 Actinic keratosis; D22.62 Melanocytic nevi of left upper limb, including shoulder; L57.8 Other skin changes due to chronic exposure to nonionizing radiation; L81.4 Other melanin hyperpigmentation | CPT/HCPCS: 17000; 99213 ==

== ENCOUNTER → 2023-09-22 10:05 | Outpatient (BNVA) | payer MEDICARE, OTHER, SELFPAY | PROVIDERS: PCP Family Medicine; Visit Provider Internal Medicine Cardiovascular Disease | DX: I48.0 Paroxysmal atrial fibrillation (principal); Z79.01 Long term (current) use of anticoagulants; E78.2 Mixed hyperlipidemia; I25.10 Atherosclerotic heart disease of native coronary artery without angina pectoris; G47.33 Obstructive sleep apnea (adult) (pediatric); I12.9 Hypertensive chronic kidney disease with stage 1 through stage 4 chronic kidney disease, or unspecified chronic kidney disease; N18.32 Chronic kidney disease, stage 3b | CPT/HCPCS: 99214 ==

== ENCOUNTER → 2023-10-13 09:57 | Outpatient (BNVA) | payer MEDICARE, OTHER, SELFPAY | PROVIDERS: PCP Family Medicine; Visit Provider Podiatrist Foot & Ankle Surgery | DX: B35.1 Tinea unguium (principal); I73.9 Peripheral vascular disease, unspecified; N18.32 Chronic kidney disease, stage 3b; L84 Corns and callosities; M20.41 Other hammer toe(s) (acquired), right foot; M20.42 Other hammer toe(s) (acquired), left foot | CPT/HCPCS: 11721 ==

== ENCOUNTER → 2023-12-22 10:10 | Outpatient (BNVA) | payer MEDICARE, OTHER, SELFPAY | PROVIDERS: PCP Family Medicine; Visit Provider Podiatrist Foot & Ankle Surgery | DX: B35.1 Tinea unguium (principal); I73.9 Peripheral vascular disease, unspecified; N18.32 Chronic kidney disease, stage 3b; L84 Corns and callosities; M20.41 Other hammer toe(s) (acquired), right foot; M20.42 Other hammer toe(s) (acquired), left foot | CPT/HCPCS: 11721 ==

== ENCOUNTER 2023-12-23 11:33 | Outpatient (CLI) | payer MEDICARE, OTHER, SELFPAY ==
--- NOTE | 2023-12-23 11:45 | MR_ITS ---
WS: [id number] MRI LUMBAR SPINE NONCONTRAST HISTORY: progressive pain and weakness in back/legs COMPARISON: 03/27/2021 TECHNIQUE: Sagittal and axial multisequence imaging is submitted. Central cervical stenosis due to disc and osteophyte disease from C3-4 through C6-7. Increase in thor acic kyphosis. Mild thoracic canal stenosis at T10-11 due to facet disease and disc herniation. Straightening of the normal lumbar lordosis. L3 retrolisthesis by 3 mm. Disc spaces are narrowed and desiccated. Most significant disc base narrowing at L2-3 and L3-4. No ac siddhartha lumbar spine fracture. There is marrow edema in the sacrum bilaterally. Conus terminates normally at L1-2 disc level. L1-L2: Disc bulging and facet arthritis. Mild central stenosis. L2-L3: Osteophytic ridging, ligamentum flavum and facet arthritis. Mild annular disc bulging. Mild ce ntral and bilateral subarticular recess stenosis. Similar to the prior study. L3-L4: Osteophytic ridging, annular disc bulging with severe ligamentum flavum and facet arthritis. B ilateral foraminal disc protrusions. High-grade central, bilateral subarticular recess and LEFT rakel inal stenosis has progressed since the prior study. Mild RIGHT foraminal stenosis. There is significa nt encroachment upon the traversing L4 nerve roots. Thickening and edema in the nerve roots posterior to L3. L4-L5: Diffuse annular disc bulging and osteophytic ridging and facet arthritis. Moderate central wit h severe bilateral subarticular recess stenosis, RIGHT greater than LEFT. Mild RIGHT and moderate LEF T foraminal stenosis. Slight progression of central stenosis since the prior study. L5-S1: Diffuse annular disc bulging, osteophytic ridging and facet arthritis. Moderate central, bilat eral subarticular recess and foraminal stenosis. Mild progression since the prior study. Several masses are associated with the RIGHT kidney. Due to the motion artifact these cannot be furth er evaluated by MRI. On a prior MRI these were noted to be cysts. IMPRESSION: 1. Advanced degenerative changes and stenosis throughout the lumbar spine with progression since . 2. L2-3: Mild central, bilateral subarticular recess stenosis. 3. L3-4: Severe central, bilateral subarticular recess and LEFT foraminal stenosis, slight progressi on since the prior study. There is encroachment upon the traversing L4 nerve roots. Small amount of e ke in the nerve roots posterior to L3. 4. L4-5: Moderate central with severe bilateral subarticular recess stenosis, RIGHT greater than LEF T. Moderate LEFT and mild RIGHT foraminal stenosis. 5. L5-S1: Moderate central, bilateral subarticular recess and foraminal stenosis. 6. Bilateral marrow edema in S1 and S2. Incompletely visualized sacrum. The pattern is nonspecific b ut is often seen with sacral insufficiency fractures. Consider follow-up CT evaluation of the pelvis.
== END 2023-12-23 11:34 | disposition home or self-care (01) ==
LOC: RAD 11:34
PROVIDERS: PCP Family Medicine; Visit Provider Family Medicine
DX: M48.062 Spinal stenosis, lumbar region with neurogenic claudication (principal); M47.816 Spondylosis without myelopathy or radiculopathy, lumbar region; R93.7 Abnormal findings on diagnostic imaging of other parts of musculoskeletal system
CPT/HCPCS: 72148

== ENCOUNTER → 2023-12-30 14:23 | Outpatient (BNVA) | payer MEDICARE, OTHER, SELFPAY | PROVIDERS: PCP Family Medicine; Visit Provider Orthopaedic Surgery | DX: M48.062 Spinal stenosis, lumbar region with neurogenic claudication | CPT/HCPCS: 99214 ==

== ENCOUNTER → 2024-01-02 08:11 | Outpatient (BNVA) | payer OTHER, SELFPAY | PROVIDERS: PCP Family Medicine; Visit Provider Thoracic Surgery (Cardiothoracic Vascular Surgery) | DX: I96 Gangrene, not elsewhere classified (principal); I87.2 Venous insufficiency (chronic) (peripheral); L97.821 Non-pressure chronic ulcer of other part of left lower leg limited to breakdown of skin | CPT/HCPCS: 97597; 99213; A6248 ==

== ENCOUNTER → 2024-01-05 08:58 | Outpatient (BNVA) | payer OTHER, SELFPAY | PROVIDERS: PCP Family Medicine; Visit Provider Nurse Practitioner Family | DX: I96 Gangrene, not elsewhere classified (principal); I87.2 Venous insufficiency (chronic) (peripheral); L97.821 Non-pressure chronic ulcer of other part of left lower leg limited to breakdown of skin | CPT/HCPCS: 97597 ==

== ENCOUNTER → 2024-01-07 08:53 | Outpatient (BNVA) | payer OTHER, SELFPAY | PROVIDERS: PCP Family Medicine; Visit Provider Nurse Practitioner Family | DX: I48.0 Paroxysmal atrial fibrillation (principal); Z79.01 Long term (current) use of anticoagulants; I25.10 Atherosclerotic heart disease of native coronary artery without angina pectoris; I10 Essential (primary) hypertension | CPT/HCPCS: 99214 ==

== ENCOUNTER → 2024-01-12 10:13 | Outpatient (BNVA) | payer OTHER, SELFPAY | PROVIDERS: PCP Family Medicine; Visit Provider Nurse Practitioner Family | DX: I96 Gangrene, not elsewhere classified (principal); I87.2 Venous insufficiency (chronic) (peripheral); L97.821 Non-pressure chronic ulcer of other part of left lower leg limited to breakdown of skin | CPT/HCPCS: 97597; A6251 ==

== ENCOUNTER 2024-01-19 10:12 | Outpatient (CLI) | payer OTHER, SELFPAY ==
--- NOTE | 2024-01-19 10:15 | USCV_ITS ---
Blake Head Age: 79 Gender: M : 1945 Exam Date: 01/19/2024 10:23 Ordering Phys: May Gonzalez Technologist: CT Exam Location: [facility] [place] Indication: chf BP: 120 / 80 HR: 92 Rhythm: Atrial fibrillation Technical Quality: Adequate MEASUREMENTS (Male / Female) Normal Values 2D ECHO LVOT Diameter 2.3 cm LV Ejection Fraction MOD 2C 47.9 % LV Ejection Fraction 2C AL 48.6 % LA Diameter 6.8 cm RA Systolic Volume 4C AL 514.1 ml RA Systolic Volume 4C MOD 482.9 ml LA Sys Volume AL 135.1 cm cubed LA Sys Volume Index AL 57.6 cm cubed/m squared Aorta at Sinotubular Diameter 2.5 cm IVC Diameter 2.5 cm M-MODE LA Ao Ratio MM 1.7 AV Cusp Separation MM 2.3 cm DOPPLER AV Peak Velocity 127.0 cm/s LVOT Peak Velocity 90.0 cm/s AV Area Cont Eq vti 3.5 cm squared AV Area Cont Eq pk 3.0 cm squared MV Peak Velocity 117.0 cm/s MV Area PHT 3.2 cm squared Mitral E to A Ratio 271.0 TV Peak Velocity 348.5 cm/s TR Peak Velocity 362.5 cm/s TR Peak Gradient 52.6 mmHg TR Mean Velocity 277.0 cm/s TR Mean Gradient 34.7 mmHg TR Velocity Time Integral 95.2 cm TV Peak E Velocity 129.0 cm/s Right Atrial Pressure 3.0 mmHg Pulmonary Artery Systolic Pressu 55.6 mmHg PV Peak Velocity 117.0 cm/s FINDINGS Left Ventricle Left ventricle is normal in size. LV systolic function is normal with EF of 55-60%. No regional wall motion abnormalities. Right Ventricle Normal in size and function Right Atrium Severely dilated. Left Atrium Severely dilated. Mitral Valve Mild mitral annular calcification. Mild mitral regurgitation. Aortic Valve Structurally normal aortic valve. No significant stenosis or regurgitation. Tricuspid Valve Moderate tricuspid regurgitation. RVSP is 55 to 60 mmHg. Moderate pulmonary hypertension Pulmonic Valve Not well visualized Pericardium Normal Aorta Ascending aorta is mildly dilated with diameter of 3.51cm IVC Appears to be dilated. CONCLUSIONS LV systolic function is normal with EF 55 to 60%. Biatrial dilation Mild mitral regurgitation Moderate tricuspid regurgitation Moderate pulmonary hypertension Ascending aorta is mildly dilated with diameter of 3.51cm Appears to be dilated. Wil Thompson MD (Electronically Signed) Final Date: 02 February 2024 18:01 S
== END 2024-01-19 10:13 | disposition home or self-care (01) ==
LOC: RAD 10:12
PROVIDERS: PCP Family Medicine; Visit Provider Nurse Practitioner Family
DX: I48.0 Paroxysmal atrial fibrillation (principal); I25.10 Atherosclerotic heart disease of native coronary artery without angina pectoris; I10 Essential (primary) hypertension
CPT/HCPCS: 93306; 97597; A6252

== ENCOUNTER → 2024-01-26 11:14 | Outpatient (BNVA) | payer OTHER, SELFPAY | PROVIDERS: PCP Family Medicine; Visit Provider Nurse Practitioner Family | DX: I96 Gangrene, not elsewhere classified (principal); I87.2 Venous insufficiency (chronic) (peripheral); L97.821 Non-pressure chronic ulcer of other part of left lower leg limited to breakdown of skin; Z09 Encounter for follow-up examination after completed treatment for conditions other than malignant neoplasm | CPT/HCPCS: 97597 ==

== ENCOUNTER → 2024-02-02 10:53 | Outpatient (BNVA) | payer OTHER, SELFPAY | PROVIDERS: PCP Family Medicine; Visit Provider Nurse Practitioner Family | DX: I96 Gangrene, not elsewhere classified (principal); I87.2 Venous insufficiency (chronic) (peripheral); L97.821 Non-pressure chronic ulcer of other part of left lower leg limited to breakdown of skin | CPT/HCPCS: 97597; A6210 ==

== ENCOUNTER → 2024-02-06 08:20 | Outpatient (BNVA) | payer MEDICARE, OTHER, SELFPAY | PROVIDERS: PCP Family Medicine; Visit Provider Nurse Practitioner Family | DX: I10 Essential (primary) hypertension (principal); I48.0 Paroxysmal atrial fibrillation; Z79.01 Long term (current) use of anticoagulants | CPT/HCPCS: 99214 ==

== ENCOUNTER → 2024-02-09 15:05 | Outpatient (BNVA) | payer MEDICARE, OTHER, SELFPAY | PROVIDERS: PCP Family Medicine; Visit Provider Nurse Practitioner Family | DX: I96 Gangrene, not elsewhere classified (principal); I87.2 Venous insufficiency (chronic) (peripheral); L97.522 Non-pressure chronic ulcer of other part of left foot with fat layer exposed; L97.821 Non-pressure chronic ulcer of other part of left lower leg limited to breakdown of skin; M20.41 Other hammer toe(s) (acquired), right foot; M20.42 Other hammer toe(s) (acquired), left foot | CPT/HCPCS: 11042; 11750; 87070; 87075; 87205; 97597; 99212 ==

== ENCOUNTER → 2024-02-16 10:02 | Outpatient (BNVA) | payer MEDICARE, OTHER, SELFPAY | PROVIDERS: PCP Family Medicine; Visit Provider Nurse Practitioner Family | DX: I87.2 Venous insufficiency (chronic) (peripheral) (principal); L97.821 Non-pressure chronic ulcer of other part of left lower leg limited to breakdown of skin; Z09 Encounter for follow-up examination after completed treatment for conditions other than malignant neoplasm; L57.0 Actinic keratosis; L82.0 Inflamed seborrheic keratosis; D22.62 Melanocytic nevi of left upper limb, including shoulder; L57.8 Other skin changes due to chronic exposure to nonionizing radiation; L81.4 Other melanin hyperpigmentation | CPT/HCPCS: 17000; 17110; 97597; 99213 ==

== ENCOUNTER → 2024-02-23 09:50 | Outpatient (BNVA) | payer MEDICARE, OTHER, SELFPAY | PROVIDERS: PCP Family Medicine; Visit Provider Nurse Practitioner Family | DX: I87.2 Venous insufficiency (chronic) (peripheral) (principal); L97.821 Non-pressure chronic ulcer of other part of left lower leg limited to breakdown of skin; Z09 Encounter for follow-up examination after completed treatment for conditions other than malignant neoplasm | CPT/HCPCS: 29581; 97597 ==

== ENCOUNTER → 2024-02-25 10:05 | Outpatient (BNVA) | payer MEDICARE, OTHER, SELFPAY | PROVIDERS: PCP Family Medicine; Referring Provider Orthopaedic Surgery; Visit Provider Anesthesiology Pain Medicine | DX: R29.898 Other symptoms and signs involving the musculoskeletal system (principal); G89.29 Other chronic pain; M48.062 Spinal stenosis, lumbar region with neurogenic claudication; M48.061 Spinal stenosis, lumbar region without neurogenic claudication | CPT/HCPCS: 99205 ==

== ENCOUNTER 2024-02-27 14:09 | Outpatient (CLI) | payer MEDICARE, OTHER, SELFPAY ==
--- NOTE | 2024-02-27 14:23 | US_ITS ---
WS: [id number] RENAL ULTRASOUND HISTORY: OTHER RETENTION OF URINE COMPARISON: 06/14/2019, 05/08/2020 TECHNIQUE: 2-D and color Doppler imaging of the kidney submitted. Right kidney: 9.4 cm x 4.7 cm x 4.0 cm. Cortex: 1.0 cm Mild cortical thinning. There are multiple cysts within the cortex. The largest from the superior nohemy e measures 5.3 x 4.0 cm. No solid mass or obstruction. The number of cysts has slightly increased sin ce 2019. Left kidney: 12.6 cm x 7.1 cm x 6.2 cm. Cortex: 1.3 cm Normal size kidney. There is a very large complex cyst associated with the kidney. This mass extends inferior from the kidney. This complex cyst measures at least 18.4 x 13.6 cm. There is peripheral andrew id echogenic material within the cyst with no increased vascularity. There are a few thin septations. This cyst has been present on prior studies but is increasing in size and complexity. Aorta: Normal. Urinary Bladder: Normally distended. Bilateral ureteral jets are identified. US/US renal BI* [id number] IMPRESSION: 1. Very large LEFT renal cyst with increasing complexity since 2019 and 2018. Cyst measures 18.4 x 13.6 cm. There is increasing nonvascular solid component w ithin the periphery of the cyst. This is probably a complex cyst. 2. Numerous small cortical cysts RIGHT kidney. The largest measures 5.3 x 4.0 cm in the superior pole.
[2024-02-27 15:49] LABS: Alanine Aminotransferase 12 U/L (0-41); Albumin Level 3.8 g/dL (3.5-5.2); Alkaline Phosphatase 83 U/L (40-130); Anion Gap 14.8 (5-19); Aspartate Amino Transferase 19 U/L (0-40); Blood Urea Nitrogen 41 mg/dL (8-23); Calcium 8.3 mg/dL (8.5-10.5); Carbon Dioxide 22 mmol/L (22-29); Chloride 103 mmol/L (98-107); Globulin 3.4 g/dL (1.3-4.6); Glucose 107 mg/dL (65-115); Osmolality Calculated 291 mOsm/kg (285-295); Potassium 4.8 mmol/L (3.5-5.1); Sodium 135 mmol/L (136-145); Total Bilirubin 0.5 mg/dL (0.15-1.2); Total Protein 7.2 g/dL (6.6-8.7)
== END 2024-02-27 14:10 | disposition home or self-care (01) ==
LOC: RAD 14:09
PROVIDERS: PCP Family Medicine; Visit Provider Urology
DX: R33.8 Other retention of urine (principal); N28.1 Cyst of kidney, acquired; Q61.02 Congenital multiple renal cysts
CPT/HCPCS: 76770; 80053

== ENCOUNTER → 2024-03-02 13:29 | Outpatient (BNVA) | payer MEDICARE, OTHER, SELFPAY | PROVIDERS: PCP Family Medicine; Visit Provider Podiatrist Foot & Ankle Surgery | DX: B35.1 Tinea unguium (principal); I73.9 Peripheral vascular disease, unspecified; N18.32 Chronic kidney disease, stage 3b; L84 Corns and callosities; M20.41 Other hammer toe(s) (acquired), right foot; M20.42 Other hammer toe(s) (acquired), left foot; L97.522 Non-pressure chronic ulcer of other part of left foot with fat layer exposed | CPT/HCPCS: 11055; 11721; 29581; 99213 ==

== ENCOUNTER → 2024-03-03 14:10 | Outpatient (BNVA) | payer MEDICARE, OTHER, SELFPAY | PROVIDERS: PCP Family Medicine; Visit Provider Anesthesiology Pain Medicine | DX: M54.16 Radiculopathy, lumbar region (principal); M48.062 Spinal stenosis, lumbar region with neurogenic claudication | CPT/HCPCS: 64483; 64484; J1100; J3490 ==

== ENCOUNTER 2024-03-08 15:42 | Observation (INO) | payer MEDICARE, OTHER, SELFPAY ==
[2024-03-08] VITALS (9 sets, daily range): BP systolic 144–159; BP diastolic 82–96; PULSE 91–111; RESP 16–20; TEMP 36.8; O2SAT 91–98; BMI 29.7
--- NOTE | 2024-03-08 15:58 | XR_ITS ---
WS: [id number] XR chest 1V portable [id number] REASON FOR EXAM: dyspnea/cough FINDINGS: Moderate tortuosity of the thoracic aorta. Widening of the mediastinum secondary to tortuous great ve ssels from the aortic arch. The heart is moderately enlarged. There is central pulmonary vein engorgement. There is blunting of the costophrenic angles, most notably on the right. The lungs are hypoexpanded. Do not identify findings of pulmonary edema or acute pneumonitis. Moderate changes of degenerative spondylosis in the mid and lower thoracic spine. Previous examination of 12/26/2021 did not demonstrate the central venous engorgement or the blunted c ostophrenic angles. XR/XR chest 1V portable [id number] IMPRESSION: Chronic congestive heart failure possibly with early acute congestive failure s uperimposed.
--- NOTE | 2024-03-08 16:00 | W.ED.SOB ---
HPI - SOB/Dyspnea General: Chief Complaint: Shortness of Breath/Dyspnea Stated Complaint: sob Time Seen by Provider: 03/08/24 15:43 Source: patient Mode of arrival: ambulatory History of Present Illness: HPI Narrative: 79-year-old male presents emergency room complaining of increasing shortness of breath worsening over the last 3 days worsening orthopnea and increasing swelling in his legs. He has a nonproductive cough. No fever sweats or chills no chest pain. He had gone to the [place] today to be evaluated after initial evaluation and directed him to the emergency room. Patient reports he had quit taking his Lasix over the last several days and symptoms progressed. MD elicited complaint: shortness of breath and cough Pertinent past history: COPD, congestive heart failure and other (Atrial fibrillation with) Timing: constant Exacerbating factors: lying flat, exertion and coughing Relieving factors: rest and upright position Known history of: COPD and congestive heart failure Associated symptoms: Reports chest congestion, cough and orthopnea; Deny abdominal pain, chest pain, diaphoresis, dizziness, extremity pain, fever(s), hemoptysis, lightheadedness, myalgias, nausea, palpitations, paresthesias, polydipsia, polyuria, rash, sense of impending doom, syncope or vomiting Treatment prior to arrival: none Review of Systems Const: Denies: fever(s), chills or diaphoresis Card: Reports: orthopnea; Denies: chest pain, palpitations, lightheadedness or syncope Resp: Reports: chest congestion; Denies: dyspnea or hemoptysis GI: Denies: abdominal pain, nausea or vomiting : Denies: dysuria, urinary frequency or urinary urgency Musc: Denies: neck pain, back pain or extremity pain Skin/Breast: Denies: rash Neuro: Denies: dizziness Endo: Denies: polyuria or polydipsia PFSH ED PFSH: Medical History Hypoxia CHF exacerbation TATO on CPAP Chronic kidney disease Acute bronchitis History of nonmelanoma skin cancer Spinal stenosis at L4-L5 level Allergic rhinitis Osteoarthritis of left knee CVA (cerebral vascular accident) Hypertension Esophageal reflux ASHD (arteriosclerotic heart disease) Hearing loss DDD (degenerative disc disease) Depression Hyperlipidemia Atrial fibrillation Dementia Osteoarthritis Venous insufficiency Polyuria Benign prostatic hyperplasia with lower urinary tract symptoms Surgical History S/P cataract surgery S/P cholecystectomy Family History Mother , 88 Diabetes CAD (coronary artery disease) Father , 80 CAD (coronary artery disease), Onset Age: 40 Stroke Denies family history of Clotting disorder Dementia Chronic kidney disease (CKD) Suicide Anesthesia complication Bleeding disorder Lung disease Cancer Social History Smoking and tobacco/nicotine status: never used tobacco/nicotine Alcohol intake: never Substance/Drug Use: unknown Adopted: No Caregiver/support person: No Lives independently: No Household members: spouse Marital status: Current occupational status: retired Current gender identity: Male Physical Exam Const: GENERAL APPEARANCE: cooperative and comfortable ORIENTATION/CONSCIOUSNESS: Yes awake, Yes oriented to person, Yes oriented to place and Yes oriented to time HENMT: COMMON NORMALS: normocephalic, atraumatic and hearing grossly normal bilaterally HEAD & SCALP: normocephalic and atraumatic Resp: COMMON NORMALS: normal respiratory effort, No retractions and No use of accessory muscles AUSCULTATION: crackles Cardio: COMMON NORMALS: regular rate, regular rhythm and No murmurs present (Cardio) RATE: regular rate RHYTHM: regular rhythm GI: COMMON NORMALS: Soft to palpation and No hepatosplenomegaly present AUSCULTATION: Yes normoactive bowel sounds PALPATION: Yes Soft to palpation, No Tenderness to palpation present (GI), No Guarding due to palpation present (GI) and Yes No hepatosplenomegaly present Extremity: COMMON NORMALS: normal to inspection, capillary refill normal and no calf tenderness GENERAL: Yes edema (Bilateral lower extremities) Neuro: SENSORIUM/ORIENTATION: Yes oriented to person, Yes oriented to place and Yes oriented to time Skin: COMMON NORMALS: no rashes or lesions noted GENERAL SKIN EXAM: no rashes or lesions noted Course Vital Signs: Vital signs: Vital Signs Temperature 98.2 F 03/09/24 12:04 Pulse Rate 100 03/09/24 12:04 Respiratory Rate 18 03/09/24 12:04 Blood Pressure 148/93 03/09/24 12:04 Pulse Oximetry 95 03/09/24 12:04 Oxygen Delivery Me thod Room Air 03/09/24 12:04 MDM - SOB/Dyspnea Medical Decision Making Acute exacerbation CHF and elevated BNP. Chest x-ray shows changes consistent with congestive heart failure not requiring oxygen. Patient was given IV Lasix in the emergency room will admit discussed with hospitalist orders written Medical Records I reviewed the patient's medical records. Lab Data I reviewed the patient's lab results. 03/09/24 05:12 03/09/24 05:12 Labs/Radiology: Radiology Impressions Chest X-Ray 03/08/24 15:58 IMPRESSION: Chronic congestive heart failure possibly with early acute congestive failure superimposed. Laboratory Results WBC 5.89 10^3/uL (3.29-11.43) 03/08/24 16:15 RBC 4.22 10^6/uL (3.85-5.65) 03/08/24 16:15 Hgb 11.70 g/dL (11.27-16.99) 03/08/24 16:15 Hct 37.4 % (37-53) 03/08/24 16:15 MCV 88.6 fl (82-101) 03/08/24 16:15 MCH 27.7 pg (27-33) 03/08/24 16:15 MCHC 31.3 g/dL (30-55) 03/08/24 16:15 RDW 16.2 % (12.1-15.1) H 03/08/24 16:15 Plt Count 256 10^3/cmm (157-399) 03/08/24 16:15 MPV 9.9 fL (7.4-10.4) 03/08/24 16:15 Neut % (Auto) 75.2 % 03/08/24 16:15 Lymph % (Auto) 11.0 % 03/08/24 16:15 Mckean % (Auto) 11.4 % 03/08/24 16:15 Eos % (Auto) 1.4 % 03/08/24 16:15 Baso % (Auto) 0.5 % 03/08/24 16:15 Neut # (Auto) 4.43 10^3/uL (1.8-7.7) 03/08/24 16:15 Lymph # (Auto) 0.7 10^3/uL (0.8-4.8) L 03/08/24 16:15 Mckean # (Auto) 0.7 10^3/uL (0.2-0.9) 03/08/24 16:15 Eos # (Auto) 0.1 10^3/uL (0.0-0.8) 03/08/24 16:15 Baso # (Auto) 0.0 10^3/uL (0.0-0.1) 03/08/24 16:15 Nucleated RBC % (auto) 0 % 03/08/24 16:15 Nucleated RBCs # 0.0 /100WBC 03/08/24 16:15 Specimen Type Arterial 03/08/24 16:02 Sample Site Radial, left 03/08/24 16:02 ABG pH 7.43 (7.35-7.45) 03/08/24 16:02 ABG pCO2 35.9 mmHg (35-45) 03/08/24 16:02 ABG pO2 70.3 mmHg (80.0-100.0) L 03/08/24 16:02 ABG PO2/FiO2 Ratio 0 03/08/24 16:02 ABG HCO3 23.7 mmol/L (22-26) 03/08/24 16:02 ABG O2 Saturation 94.3 03/08/24 16:02 ABG Base Excess -0.3 mmol/L (-2.0-2.0) 03/08/24 16:02 Orlin Test Pos 03/08/24 16:02 A-a O2 Gradient 4.3 mmHg (5-10) L 03/08/24 16:02 Hematocrit 33.4 % (42-52) L 03/08/24 16:02 Hgb O2 Saturation 93.2 % (95-100) L 03/08/24 16:02 Carboxyhemoglobin 1.2 %THgb (0.4-20.1) 03/08/24 16:02 Methemoglobin 0.1 % (0.4-1.5) L 03/08/24 16:02 Total Hemoglobin 10.9 g/dL (14-18) L 03/08/24 16:02 Sodium 136.0 mmol/L (131-143) 03/08/24 16:02 Potassium 4.0 mmol/L (3.5-5.0) 03/08/24 16:02 Glucose 106.0 mg/dL (70-115) 03/08/24 16:02 Ionized Calcium 1.1 mmol/L (1.1-1.4) 03/08/24 16:02 O2 Delivery Device Room air 03/08/24 16:02 FiO2 21.0 % 03/08/24 16:02 Cover Stitch Machine Operator ID Nan 03/08/24 16:02 Sodium 133 mmol/L (136-145) L 03/08/24 16:15 Potassium 4.3 mmol/L (3.5-5.1) 03/08/24 16:15 Chloride 97 mmol/L (98-107) L 03/08/24 16:15 Carbon Dioxide 23 mmol/L (22-29) 03/08/24 16:15 Anion Gap 17.3 (5-19) 03/08/24 16:15 BUN 33 mg/dL (8-23) H 03/08/24 16:15 Creatinine 1.6 mg/dL (0.7-1.2) H 03/08/24 16:15 GFR Calculation Not Reportable 03/08/24 16:15 Glucose 107 mg/dL (65-115) 03/08/24 16:15 Calculated Osmolality 284 mOsm/kg (285-295) L 03/08/24 16:15 Calcium 8.7 mg/dL (8.5-10.5) 03/08/24 16:15 Total Bilirubin 1.0 mg/dL (0.15-1.2) 03/08/24 16:15 AST 27 U/L (0-40) 03/08/24 16:15 ALT 18 U/L (0-41) 03/08/24 16:15 Alkaline Phosphatase 89 U/L (40-130) 03/08/24 16:15 Troponin T Baseline 54 ng/L (0-15) H 03/08/24 16:15 Troponin T 120 Minute 50.89 ng/L (0-15) H 03/08/24 18:45 Delta Troponin T -3.11 ABS# (0-10) L 03/08/24 18:45 NT-Pro-B Natriuret Pep 5150 pg/mL (0-450) H 03/08/24 16:15 Total Protein 7.5 g/dL (6.6-8.7) 03/08/24 16:15 Albumin 4.5 g/dL (3.5-5.2) 03/08/24 16:15 Globulin 3.0 g/dL (1.3-4.6) 03/08/24 16:15 Procalcitonin 0.08 ng/mL (0-0.5) 03/08/24 16:15 All radiology interpretation(s) finalized by discharge Discharge Plan Discharge Patient Disposition: Admitted As Inpatient Admit Provider: Becky Contreras Clinical Impression: Acute exacerbation of CHF (congestive heart failure), ASHD (arteriosclerotic heart disease), Hypertension Condition: Stable Coding Level of Care Code ED [employer] Supervisor for Bibi Montano
[2024-03-08 16:15] LABS: ABG PCO2 35.9 mmHg (35-45); ABG PH Result 7.43 (7.35-7.45); Alveolar-Arterial Oxygen Gradi 4.3 mmHg (5-10); Arterial Blood Gas Hematocrit 33.4 % (42-52); Base Excess ABG -0.3 mmol/L (-2.0-2.0); Blood Gas Allen Test Pos; Blood Gas Operator Identificat MONRO; Blood Gas Sample Site Radial, left; Blood Gas Sample Type Arterial; Carboxyhemoglobin 1.2 %THgb (0.4-20.1); HCO3 ABG 23.7 mmol/L (22-26); HGB O2 Sat 93.2 % (95-100); Ionized Calcium Level - ABG 1.1 mmol/L (1.1-1.4); Methemoglobin 0.1 % (0.4-1.5); Oxygen Device ROOM AIR; Oxygen Saturation ABG 94.3; PO2 ABG 70.3 mmHg (80.0-100.0); PO2 FiO2 Ratio Arterial Blood 0; Total Hemoglobin 10.9 g/dL (14-18)
--- NOTE | 2024-03-08 16:28 | ECG_ITS ---
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 Measurements Intervals [place] Rate: 98 P: 0 NV: 0 QRS: 119 QRSD: 89 T: -13 QT: 353 QTc: 452 Interpretive Statements ATRIAL FIBRILLATION POSSIBLE RIGHT VENTRICULAR HYPERTROPHY [SOME/ALL OF: PROMINENT R IN V1, LATE TRANSITION, RAD, EDEL, SSS] ABNORMAL QRS-T ANGLE [QRS-T AXIS DIFFERENCE > 60] Compared to ECG 12/26/2021 15:27:44 No significant changes Electronically Signed On 03-09-2024 7:26:35 CDT by Wil Thompson M.D. [id number]
[2024-03-08 16:32] LABS: Basophils % 0.5 %; Eosinophils # 0.1 10^3/uL (0.0-0.8); Eosinophils % 1.4 %; Hematocrit 37.4 % (37-53); Lymphocytes # 0.7 10^3/uL (0.8-4.8); Mean Corpuscular HGB Conc 31.3 g/dL (30-55); Mean Corpuscular Hemoglobin 27.7 pg (27-33); Mean Corpuscular Volume 88.6 fl (82-101); Mean Platelet Volume 9.9 fL (7.4-10.4); Monocytes # 0.7 10^3/uL (0.2-0.9); Monocytes % 11.4 %; Neutrophils # 4.43 10^3/uL (1.8-7.7); Neutrophils % 75.2 %; Nucleated Red Blood Cells % 0 %; Platelet Count 256 10^3/cmm (157-399); Red Blood Count 4.22 10^6/uL (3.85-5.65); Red Cell Distribution Width 16.2 % (12.1-15.1); White Blood Count 5.89 10^3/uL (3.29-11.43)
[2024-03-08] MEDS: FUROsemide 10 mg/mL SDV 4mL 40 MG IVP (16:33)
[2024-03-08 17:09] LABS: Troponin(5th) Baseline 54 ng/L (0-15)
[2024-03-08 17:23] LABS: Alanine Aminotransferase 18 U/L (0-41); Albumin Level 4.5 g/dL (3.5-5.2); Alkaline Phosphatase 89 U/L (40-130); Anion Gap 17.3 (5-19); Aspartate Amino Transferase 27 U/L (0-40); Blood Urea Nitrogen 33 mg/dL (8-23); Calcium 8.7 mg/dL (8.5-10.5); Carbon Dioxide 23 mmol/L (22-29); Chloride 97 mmol/L (98-107); Glucose 107 mg/dL (65-115); NT Pro B Type Natriuretic Pept 5150 pg/mL (0-450); Osmolality Calculated 284 mOsm/kg (285-295); Potassium 4.3 mmol/L (3.5-5.1); Sodium 133 mmol/L (136-145); Total Protein 7.5 g/dL (6.6-8.7)
[2024-03-08] MEDS: dexamethasone 10 mg/mL INJ IM (17:37)
[2024-03-08] MEDS: ipratropium-albuterol 3 mL Neb INHALATION (17:51)
--- NOTE | 2024-03-08 17:58 | ECG_ITS ---
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 Measurements Intervals [place] Rate: 97 P: 0 MN: 0 QRS: 122 QRSD: 93 T: -12 QT: 363 QTc: 462 Interpretive Statements ATRIAL FIBRILLATION WITH ABERRANT CONDUCTION OR VENTRICULAR PREMATURE COMPLEXES POSSIBLE RIGHT VENTRICULAR HYPERTROPHY [SOME/ALL OF: PROMINENT R IN V1, LATE TRANSITION, RAD, EDEL, SSS] ABNORMAL QRS-T ANGLE [QRS-T AXIS DIFFERENCE > 60] Compared to ECG 03/08/2024 16:28:04 Ventricular premature complex(es) now present Aberrant conduction of supraventricular beat(s) now present Electronically Signed On 03-09-2024 7:30:57 CDT by Wil Thompson M.D. [id number]
--- NOTE | 2024-03-08 18:01 | P.HP_ITS ---
Providers/Chief Complaint 2 Primary Care Provider: Candace Ace MD Chief Complaint: sob History of Present Illness Blake Head is a 79 year old male who present to the hospital with chief complaint of shortness of breath, patient is stating that he stopped taking Lasix he is exactly not sure why it was stopped, he was complaining orthopnea and PND and shortness of breath on exertion. [place] to the [place] for further evaluation. Patient was diagnosed with mild CHF as patient in the ER received Lasix He was requiring 2 L of oxygen at the time of my evaluation in the ER, creatinine at baseline troponins were trending down, BNP 5000, chest x-ray showed mild signs of congestive heart failure Patient is stating that her last 3 to 4 days he has been experiencing nonproductive cough which is bothering him as well Review of Systems 2 Const: Denies: fever(s) Eyes: Denies: change in vision ENMT: Denies: throat pain Card: Denies: chest pain Resp: Reports: dyspnea and non-productive cough GI: Denies: abdominal pain Medications/Allergies Home Medications Medication Instructions Recorded Confirmed Last Taken Type acetaminophen 650 mg 650 mg PO Q8H PRN Pain 10/21/19 03/09/24 Unknown History tablet,extended release (Arthritis Pain Relief (acetaminophen) ER) apixaban 5 mg tablet (Eliquis) 5 mg PO BID 10/21/19 03/09/24 03/08/24 History coenzyme Q10 10 mg capsule (Co 30 mg PO DAILY 10/21/19 03/09/24 Unknown History Q-10) lisinopril 40 mg tablet 40 mg PO QAM 10/21/19 03/09/24 03/08/24 History metoprolol succinate 200 mg 200 mg PO BEDTIME 10/21/19 03/09/24 03/07/24 History tablet,extended release 24 hr nitroglycerin 0.4 mg sublingual 0.4 mg sublingual Q5M PRN Chest 10/21/19 03/09/24 Unknown History tablet (Nitrostat) Pain saw palm 160 mg-vit E 100 1 tab PO DAILY 10/21/19 03/09/24 Unknown History unit-selen 100 mru-obdj-busdkg-pygeum tablet (Prostate Health) tamsulosin 0.4 mg capsule (Flomax) 0.8 mg PO QPM 10/21/19 03/09/24 03/07/24 History finasteride 5 mg tablet 5 mg PO BEDTIME 07/02/21 03/09/24 03/07/24 History fluticasone propionate 50 2 spray intranasal DAILY 07/02/21 03/09/24 03/08/24 History mcg/actuation nasal spray,suspension loratadine 10 mg tablet 10 mg PO DAILY 07/02/21 03/09/24 03/08/24 History ascorbic acid (vitamin C) 1,000 mg 1 g PO DAILY 07/09/21 03/09/24 Unknown History tablet diltiazem HCl 180 mg capsule,24 180 mg PO QAM 12/26/21 03/09/24 03/08/24 History hr,extended release famotidine 20 mg tablet 20 mg PO BID 12/26/21 03/09/24 03/08/24 History simvastatin 20 mg tablet 10 mg PO BEDTIME 12/26/21 03/09/24 03/07/24 History CPAP (Auto-Titrating CPAP) #1 ea 01/22/23 03/09/24 Unknown Rx levothyroxine 100 mcg tablet 100 mcg PO .qod 09/22/23 03/09/24 Unknown History prednisone 20 mg tablet 20 mg PO .COMPLEX #40 tabs 11/27/23 03/09/24 Unknown Rx hydrocodone 10 mg-acetaminophen 1 tab PO Q6H PRN pain 20 days #80 01/21/24 03/09/24 Unknown Rx 325 mg tablet tabs albuterol sulfate 90 mcg/actuation 2 puff inhalation Q4H PRN 03/09/24 03/09/24 Unknown History aerosol inhaler Shortness Of Breath diclofenac sodium 75 mg 75 mg PO BID 03/09/24 03/09/24 Unknown History tablet,delayed release hydralazine 100 mg tablet See Rx Instructions .Route .COMPLEX 03/09/24 03/09/24 03/08/24 History miconazole nitrate 2 % topical 1 spray topical TID TINEA 03/09/24 03/09/24 Unknown History spray powder INFECTIONS oxycodone 5 mg tablet 5 mg PO Q4H PRN Pain 03/09/24 03/09/24 Unknown History torsemide 20 mg tablet 20 mg PO DAILY 03/09/24 03/09/24 03/08/24 History tramadol 50 mg tablet 50 mg PO Q12H PRN Pain 03/09/24 03/09/24 Unknown History Allergies Allergy/AdvReac Type Severity Reaction Status Date / Time Penicillins Allergy Rash Verified 03/02/24 13:40 PFSH Acute 2 PFSH: Medical History History of nonmelanoma skin cancer Spinal stenosis at L4-L5 level Allergic rhinitis Osteoarthritis of left knee CVA (cerebral vascular accident) Hypertension Esophageal reflux ASHD (arteriosclerotic heart disease) Hearing loss DDD (degenerative disc disease) Depression Hyperlipidemia Atrial fibrillation Dementia Osteoarthritis Venous insufficiency Polyuria Benign prostatic hyperplasia with lower urinary tract symptoms Surgical History S/P cataract surgery S/P cholecystectomy Family History Mother , 88 Diabetes CAD (coronary artery disease) Father , 80 CAD (coronary artery disease), Onset Age: 40 Stroke Denies family history of Clotting disorder Dementia Chronic kidney disease (CKD) Suicide Anesthesia complication Bleeding disorder Lung disease Cancer Social History Smoking and tobacco/nicotine status: never used tobacco/nicotine Alcohol intake: never Substance/Drug Use: unknown Adopted: No Caregiver/support person: No Lives independently: No Household members: spouse Marital status: Current occupational status: retired Current gender identity: Male Vitals/I&O/Wt Last Vital Signs Temp 98.2 F 03/08/24 15:45 Pulse 91 03/08/24 17:55 Resp 18 03/08/24 17:48 BP 148/88 03/08/24 16:30 Pulse Ox 95 03/08/24 17:48 O2 Del Method Room Air 03/08/24 17:48 Physical Exam 2 Narrative: Pleasant cooperative GCS 15 Nonfocal neuroexam Mild signs of CHF On 2 L nasal cannula Pleasant cough No active chest pain Data 03/09/24 05:12 03/09/24 05:12 A&P Assessment and plan (1) Atrial fibrillation: Qualifiers: Atrial fibrillation type: paroxysmal Qualified Code(s): I48.0 - Paroxysmal atrial fibrillation (2) Chronic kidney disease: Qualifiers: Chronic kidney disease stage: stage 3 (moderate) Chronic kidney disease stage 3 subtype: stage 3b (GFR 30-44) Qualified Code(s): N18.32 - Chronic kidney disease, stage 3b (3) Acute bronchitis: Qualifiers: Bronchitis organism: rhinovirus Qualified Code(s): J20.6 - Acute bronchitis due to rhinovirus (4) TATO on CPAP: (5) CHF exacerbation: (6) Hypoxia: Plan Acute CHF exacerbation Diastolic CHF EF is preserved Start IV Lasix Monitor urine output Chronic kidney disease: Creatinine at baseline Full code Cardiac diet A-fib without RVR Continue Eliquis and AV antonio blocking agent Obstructive sleep apnea: Continue CPAP overnight Multiple joint disease and back pain, judicious use of opioid Attestations 2 Medical Necessity Statement*: Anticipating discharge within 48 hours Diagnoses Paroxysmal atrial fibrillation I48.0 Atrial fibrillation type: paroxysmal Stage 3b chronic kidney disease N18.32 Chronic kidney disease stage: stage 3 (moderate) Chronic kidney disease stage 3 subtype: stage 3b (GFR 30-44) Acute bronchitis due to Rhinovirus J20.6 Bronchitis organism: rhinovirus TATO on CPAP G47.33 CHF exacerbation I50.9 Hypoxia R09.02
[2024-03-08 18:10] LABS: Procalcitonin 0.08 ng/mL (0-0.5)
[2024-03-08 19:32] LABS: Troponin 5 2HR 50.89 ng/L (0-15)
[2024-03-08 19:33] LABS: Troponin 5 2HR Delta -3.11 ABS# (0-10)
--- NOTE | 2024-03-08 21:53 | ECG_ITS ---
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 Measurements Intervals [place] Rate: 105 P: 0 AR: 0 QRS: 3 QRSD: 81 T: -40 QT: 319 QTc: 422 Interpretive Statements ATRIAL FIBRILLATION WITH RAPID VENTRICULAR RESPONSE INDETERMINATE AXIS POSSIBLE ANTERIOR MYOCARDIAL INFARCTION , PROBABLY OLD [30 ms Q WAVE IN V3/V4, OR R < 0.2 mV IN V4] ABNORMAL RHYTHM ECG Compared to ECG 03/08/2024 18:30:29 Indeterminate axis now present Myocardial infarct finding now present Ventricular premature complex(es) no longer present Aberrant conduction of supraventricular beat(s) no longer present Electronically Signed On 03-09-2024 7:29:41 CDT by Wil Thompson M.D. [id number]
[2024-03-08] MEDS: metoprolol succinate ER (24 HR) 100 mg Tablet 200 MG PO (23:17)
[2024-03-09 01:01] VITALS: BP 149/79; PULSE 93; RESP 18; TEMP 36.3; O2SAT 91
[2024-03-09 03:50] VITALS: BP 154/84; PULSE 98; RESP 19; TEMP 36.7; O2SAT 95
[2024-03-09 05:45] LABS: Basophils % 0.3 %; Lymphocytes # 0.4 10^3/uL (0.8-4.8); Lymphocytes % 9.3 %; Mean Corpuscular HGB Conc 32.1 g/dL (30-55); Mean Corpuscular Volume 87.3 fl (82-101); Monocytes # 0.2 10^3/uL (0.2-0.9); Monocytes % 4.4 %; Neutrophils % 85.5 %; Nucleated Red Blood Cells % 0 %; Platelet Count 235 10^3/cmm (157-399); Red Blood Count 3.78 10^6/uL (3.85-5.65); Red Cell Distribution Width 15.9 % (12.1-15.1); White Blood Count 3.86 10^3/uL (3.29-11.43)
[2024-03-09 06:07] LABS: Anion Gap 16.2 (5-19); Blood Urea Nitrogen 33 mg/dL (8-23); Calcium 8.8 mg/dL (8.5-10.5); Carbon Dioxide 24 mmol/L (22-29); Chloride 99 mmol/L (98-107); Glucose 155 mg/dL (65-115); Magnesium 1.8 mg/dL (1.7-2.3); Osmolality Calculated 290 mOsm/kg (285-295); Phosphorus 3.5 mg/dL (2.5-4.5); Potassium 4.2 mmol/L (3.5-5.1); Sodium 135 mmol/L (136-145)
[2024-03-09 06:10] LABS: Creatinine Clr Calc Pharmacy 45.5022
--- NOTE | 2024-03-09 07:52 | PC.PHAR ---
PT IS [facility] FOR MED LIST 03/09/24 7:50AM
[2024-03-09 08:39] VITALS: BP 159/89; PULSE 96; RESP 17; TEMP 36.3; O2SAT 95
--- NOTE | 2024-03-09 08:57 | PC.PHAR ---
Addendum entered by Tyra Pappas 03/09/24 08:59: ANTIBIOTIC AND STEROID FILLED AT [facility]. PT FINISHED THERAPY Original Note: PT HAS [facility] MED LIST AND SEVERAL OTC SUPPLEMENTS. PT ALSO GETS SOME MEDS FILLED LOCALLY FOR IMMEDIATE USE.
[2024-03-09] MEDS: doxycycline 100 mg Tablet PO (09:07)
[2024-03-09] MEDS: apixaban 5 mg Tablet PO (09:07)
[2024-03-09] MEDS: hyDRALAzine 50 mg Tablet 25 MG PO (09:07)
[2024-03-09 10:46] VITALS: PULSE 103; RESP 16; O2SAT 93
[2024-03-09] MEDS: FUROsemide 10 mg/mL SDV 10mL 40 MG IVP (10:49)
--- NOTE | 2024-03-09 11:04 | P.DS_ITS ---
Discharge Providers Date of Admission: 03/08/24 19:19 Date of Discharge: March 09, 2024 Attending Provider at Admission: Becky Contreras MD Attending Provider at Discharge: Becky Contreras MD Primary Care Provider: Candace Ace MD Diagnoses at Discharge Discharge Diagnosis (1) Atrial fibrillation: Status: Acute Qualifiers: Atrial fibrillation type: paroxysmal Qualified Code(s): I48.0 - Paroxysmal atrial fibrillation (2) Chronic kidney disease: Status: Acute Qualifiers: Chronic kidney disease stage: stage 3 (moderate) Chronic kidney disease stage 3 subtype: stage 3b (GFR 30-44) Qualified Code(s): N18.32 - Chronic kidney disease, stage 3b (3) Acute bronchitis: Status: Acute Qualifiers: Bronchitis organism: rhinovirus Qualified Code(s): J20.6 - Acute bronchitis due to rhinovirus (4) TATO on CPAP: Status: Acute (5) CHF exacerbation: Status: Acute (6) Hypoxia: Status: Acute Reason for Visit Reason for Visit: sob Hospital Course Hospital Course 79-year male who was admitted for management evaluation of acute hypoxia related to CHF exacerbation, he was given IV Lasix which improved his oxygenation, he is not requiring oxygen at the time of discharge, his creatinine is 1.6 which is better than his baseline, patient is able to lay flat, orthopnea PND has improved slightly, chest x-ray showed mild CHF signs, he is afebrile hemodynamically stable, I have asked him to not to discontinue his Lasix, I have prescribed him Lasix 40 mg daily along potassium supplementation. Patient understood instructions. He has history of diastolic CHF echo was done recently have not repeated echo on this visit. For his cough we will give him Robitussin and azithromycin 3-day regimen. Physical Exam Narrative: Awake and alert On room air Pleasant and cooperative GCS 15 Able to lay flat Discharge Data Studies Completed and Pending Completed Studies During Hospitalization Category Date Time Status XR chest 1V portable [id number] Stat Exams 03/08/24 15:58 Completed Radiology Impressions Chest X-Ray 03/08/24 15:58 IMPRESSION: Chronic congestive heart failure possibly with early acute congestive failure superimposed. Laboratory Results WBC 3.86 10^3/uL (3.29-11.43) 03/09/24 05:12 RBC 3.78 10^6/uL (3.85-5.65) L 03/09/24 05:12 Hgb 10.60 g/dL (11.27-16.99) L 03/09/24 05:12 Hct 33.0 % (37-53) L 03/09/24 05:12 MCV 87.3 fl (82-101) 03/09/24 05:12 MCH 28.0 pg (27-33) 03/09/24 05:12 MCHC 32.1 g/dL (30-55) 03/09/24 05:12 RDW 15.9 % (12.1-15.1) H 03/09/24 05:12 Plt Count 235 10^3/cmm (157-399) 03/09/24 05:12 MPV 10.0 fL (7.4-10.4) 03/09/24 05:12 Neut % (Auto) 85.5 % 03/09/24 05:12 Lymph % (Auto) 9.3 % 03/09/24 05:12 [place] % (Auto) 4.4 % 03/09/24 05:12 Eos % (Auto) 0.0 % 03/09/24 05:12 Baso % (Auto) 0.3 % 03/09/24 05:12 Neut # (Auto) 3.30 10^3/uL (1.8-7.7) 03/09/24 05:12 Lymph # (Auto) 0.4 10^3/uL (0.8-4.8) L 03/09/24 05:12 [place] # (Auto) 0.2 10^3/uL (0.2-0.9) 03/09/24 05:12 Eos # (Auto) 0.0 10^3/uL (0.0-0.8) 03/09/24 05:12 Baso # (Auto) 0.0 10^3/uL (0.0-0.1) 03/09/24 05:12 Nucleated RBC % (auto) 0 % 03/09/24 05:12 Nucleated RBCs # 0.0 /100WBC 03/09/24 05:12 Specimen Type Arterial 03/08/24 16:02 Sample Site Radial, left 03/08/24 16:02 ABG pH 7.43 (7.35-7.45) 03/08/24 16:02 ABG pCO2 35.9 mmHg (35-45) 03/08/24 16:02 ABG pO2 70.3 mmHg (80.0-100.0) L 03/08/24 16:02 ABG PO2/FiO2 Ratio 0 03/08/24 16:02 ABG HCO3 23.7 mmol/L (22-26) 03/08/24 16:02 ABG O2 Saturation 94.3 03/08/24 16:02 ABG Base Excess -0.3 mmol/L (-2.0-2.0) 03/08/24 16:02 Orlin Test Pos 03/08/24 16:02 A-a O2 Gradient 4.3 mmHg (5-10) L 03/08/24 16:02 Hematocrit 33.4 % (42-52) L 03/08/24 16:02 Hgb O2 Saturation 93.2 % (95-100) L 03/08/24 16:02 Carboxyhemoglobin 1.2 %THgb (0.4-20.1) 03/08/24 16:02 Methemoglobin 0.1 % (0.4-1.5) L 03/08/24 16:02 Total Hemoglobin 10.9 g/dL (14-18) L 03/08/24 16:02 Sodium 136.0 mmol/L (131-143) 03/08/24 16:02 Potassium 4.0 mmol/L (3.5-5.0) 03/08/24 16:02 Glucose 106.0 mg/dL (70-115) 03/08/24 16:02 Ionized Calcium 1.1 mmol/L (1.1-1.4) 03/08/24 16:02 O2 Delivery Device Room air 03/08/24 16:02 FiO2 21.0 % 03/08/24 16:02 [employer] [place] 03/08/24 16:02 Sodium 135 mmol/L (136-145) L 03/09/24 05:12 Potassium 4.2 mmol/L (3.5-5.1) 03/09/24 05:12 Chloride 99 mmol/L (98-107) 03/09/24 05:12 Carbon Dioxide 24 mmol/L (22-29) 03/09/24 05:12 Anion Gap 16.2 (5-19) 03/09/24 05:12 BUN 33 mg/dL (8-23) H 03/09/24 05:12 Creatinine 1.6 mg/dL (0.7-1.2) H 03/09/24 05:12 GFR Calculation Not Reportable 03/09/24 05:12 Glucose 155 mg/dL (65-115) H 03/09/24 05:12 Calculated Osmolality 290 mOsm/kg (285-295) 03/09/24 05:12 Calcium 8.8 mg/dL (8.5-10.5) 03/09/24 05:12 Phosphorus 3.5 mg/dL (2.5-4.5) 03/09/24 05:12 Magnesium 1.8 mg/dL (1.7-2.3) 03/09/24 05:12 Total Bilirubin 1.0 mg/dL (0.15-1.2) 03/08/24 16:15 AST 27 U/L (0-40) 03/08/24 16:15 ALT 18 U/L (0-41) 03/08/24 16:15 Alkaline Phosphatase 89 U/L (40-130) 03/08/24 16:15 Troponin T Baseline 54 ng/L (0-15) H 03/08/24 16:15 Troponin T 120 Minute 50.89 ng/L (0-15) H 03/08/24 18:45 Delta Troponin T -3.11 ABS# (0-10) L 03/08/24 18:45 Troponin T Hi Sens 6Hr 46.30 ng/L (0-15) H 03/08/24 22:59 Troponin T Hi Sens 6Hr Delta -7.70 ng/L (0-12) L 03/08/24 22:59 NT-Pro-B Natriuret Pep 5150 pg/mL (0-450) H 03/08/24 16:15 Total Protein 7.5 g/dL (6.6-8.7) 03/08/24 16:15 Albumin 4.5 g/dL (3.5-5.2) 03/08/24 16:15 Globulin 3.0 g/dL (1.3-4.6) 03/08/24 16:15 Procalcitonin 0.08 ng/mL (0-0.5) 03/08/24 16:15 Vitals Last Vital Signs Temp 97.4 F L 03/09/24 08:39 Pulse 103 H 03/09/24 10:46 Resp 16 03/09/24 10:46 BP 159/89 03/09/24 08:39 Pulse Ox 93 03/09/24 10:46 O2 Del Method Room Air 03/09/24 10:46 Discharge Plan Discharge Patient Disposition: Home Condition: Stable Prescriptions: New furosemide [Lasix] 40 mg tablet 40 mg PO DAILY Qty: 60 4RF potassium chloride 10 mEq tablet extended release 10 meq PO DAILY Qty: 60 0RF Rx Instructions: Only take it with Lasix azithromycin 500 mg tablet 500 mg PO DAILY 3 Days Qty: 3 0RF magnesium 200 mg tablet 200 mg PO DAILY Qty: 30 0RF Continued coenzyme Q10 [Co Q-10] 10 mg capsule 30 mg PO DAILY acetaminophen [Arthritis Pain Relief (acetam)] 650 mg tablet extended release 650 mg PO Q8H PRN (Reason: Pain) Eliquis 5 mg tablet 5 mg PO BID tamsulosin [Flomax] 0.4 mg capsule 0.8 mg PO QPM lisinopril 40 mg tablet 40 mg PO QAM metoprolol succinate 200 mg tablet extended release 24 hr 200 mg PO BEDTIME nitroglycerin [Nitrostat] 0.4 mg tablet, sublingual 0.4 mg SUBLINGUAL Q5M PRN (Reason: Chest Pain) Prostate Health 160-100-100 mg-unit-mcg tablet 1 tab PO DAILY ascorbic acid (vitamin C) 1,000 mg tablet 1 g PO DAILY loratadine 10 mg tablet 10 mg PO DAILY fluticasone propionate 50 mcg/actuation spray,suspension 2 spray intranasal DAILY finasteride 5 mg tablet 5 mg PO BEDTIME prednisone 20 mg tablet 20 mg PO .COMPLEX Qty: 40 0RF Rx Instructions: 3 tabs daily x 3d, then 2 1/2 daily x 3d, then 2 daily x3d...... levothyroxine 100 mcg tablet 100 mcg PO .qod (DME) Auto-Titrating CPAP Device See Rx Instructions .Route Qty: 1 0RF Rx Instructions: 5 to 12 cm hydrocodone-acetaminophen 10-325 mg tablet 1 tab PO Q6H PRN (Reason: pain) 20 Days Qty: 80 0RF torsemide 20 mg tablet 20 mg PO DAILY miconazole nitrate 2 % Aerosol Powder 1 spray TOPICAL TID hydralazine 100 mg tablet See Rx Instructions .ROUTE .COMPLEX Rx Instructions: TAKE 1 TABLET BY MOUTH EVERY MORNING, 1 TABLET IN THE EVENING, AND 1 TABLET AT BEDTIME. albuterol sulfate 90 mcg/actuation Hfa Aerosol Inhaler 2 puff INHALATION Q4H PRN (Reason: Shortness Of Breath) tramadol 50 mg tablet 50 mg PO Q12H PRN (Reason: Pain) diclofenac sodium 75 mg tablet,delayed release (DR/EC) 75 mg PO BID oxycodone 5 mg tablet 5 mg PO Q4H PRN (Reason: Pain) diltiazem HCl 180 mg capsule,extended release 24 hr 180 mg PO QAM famotidine 20 mg tablet 20 mg PO BID simvastatin 20 mg tablet 10 mg PO BEDTIME Discharge Orders: Discharge Order (Routine); Ordered 03/09/24 Ordered By: Becky Contreras Referrals: Candace Ace MD [Primary Care Provider] - 03/15/24 1:30 pm Patient Instructions: Heart Failure (GEN), CHF Stoplight, Opioid Safety Discharge Attestations Time Spent in Discharge Care*: greater than 30 min Quality Metrics Clinical Quality Measures [ No reported AMI, CVA or VTE this stay] Coding Level of Care Code Acute Code for Chg Fwd Diagnoses Paroxysmal atrial fibrillation I48.0 Atrial fibrillation type: paroxysmal Stage 3b chronic kidney disease N18.32 Chronic kidney disease stage: stage 3 (moderate) Chronic kidney disease stage 3 subtype: stage 3b (GFR 30-44) Acute bronchitis due to Rhinovirus J20.6 Bronchitis organism: rhinovirus TATO on CPAP G47.33 CHF exacerbation I50.9 Hypoxia R09.02
--- NOTE | 2024-03-09 11:17 | PC.NURSE ---
D/C pending transportation to patients [facility].
[2024-03-09 12:04] VITALS: BP 148/93; PULSE 100; RESP 18; TEMP 36.8; O2SAT 95
== END 2024-03-09 12:41 | disposition home or self-care (01) ==
LOC: ER 16:45 → MEDSURG 19:55
PROVIDERS: Admitting Provider Internal Medicine; Emergency Provider Family Medicine; PCP Family Medicine; Visit Provider Internal Medicine
DX: R09.02 Hypoxemia (principal); I50.30 Unspecified diastolic (congestive) heart failure; I48.0 Paroxysmal atrial fibrillation; N18.32 Chronic kidney disease, stage 3b; J20.6 Acute bronchitis due to rhinovirus; G47.33 Obstructive sleep apnea (adult) (pediatric); Z86.73 Personal history of transient ischemic attack (TIA), and cerebral infarction without residual deficits; Z85.828 Personal history of other malignant neoplasm of skin; K21.9 Gastro-esophageal reflux disease without esophagitis; I25.10 Atherosclerotic heart disease of native coronary artery without angina pectoris; F32.A Depression, unspecified; F03.90 Unspecified dementia, unspecified severity, without behavioral disturbance, psychotic disturbance, mood disturbance, and anxiety; N40.1 Benign prostatic hyperplasia with lower urinary tract symptoms; Z82.49 Family history of ischemic heart disease and other diseases of the circulatory system; M19.90 Unspecified osteoarthritis, unspecified site; Z79.891 Long term (current) use of opiate analgesic
CPT/HCPCS: 36415; 36600; 71045; 80048; 80051; 80053; 82330; 82805; 83735; 83880; 84100; 84145; 84484; 85025; 93005; 94640; 96372; 96374; 99285; G0378; J1100; J1940

== ENCOUNTER → 2024-03-15 13:47 | Outpatient (BNVA) | payer MEDICARE, OTHER, SELFPAY | PROVIDERS: PCP Family Medicine; Visit Provider Nurse Practitioner Family | DX: I96 Gangrene, not elsewhere classified (principal); I87.2 Venous insufficiency (chronic) (peripheral); L97.821 Non-pressure chronic ulcer of other part of left lower leg limited to breakdown of skin | CPT/HCPCS: 97597 ==

== ENCOUNTER → 2024-03-17 10:11 | Outpatient (BNVA) | payer MEDICARE, SELFPAY | PROVIDERS: PCP Family Medicine; Visit Provider Anesthesiology Pain Medicine | DX: M48.062 Spinal stenosis, lumbar region with neurogenic claudication (principal); M48.061 Spinal stenosis, lumbar region without neurogenic claudication | CPT/HCPCS: 99214 ==

== ENCOUNTER → 2024-03-22 14:49 | Outpatient (BNVA) | payer MEDICARE, SELFPAY | PROVIDERS: PCP Family Medicine; Visit Provider Nurse Practitioner Family | DX: Z09 Encounter for follow-up examination after completed treatment for conditions other than malignant neoplasm (principal); Z87.2 Personal history of diseases of the skin and subcutaneous tissue | CPT/HCPCS: A6212 ==

== ENCOUNTER → 2024-03-29 09:30 | Outpatient (BNVA) | payer MEDICARE, OTHER, SELFPAY | PROVIDERS: PCP Family Medicine; Visit Provider Nurse Practitioner Family | DX: Z09 Encounter for follow-up examination after completed treatment for conditions other than malignant neoplasm (principal); Z87.2 Personal history of diseases of the skin and subcutaneous tissue | CPT/HCPCS: 99202 ==

== ENCOUNTER → 2024-04-15 12:47 | Outpatient (CLI) | payer OTHER, SELFPAY ==
--- NOTE | 2024-04-15 12:53 | CTR_ITS ---
PROCEDURE INFORMATION: Exam: CT Abdomen And Pelvis Without Contrast Exam date and time: 04/15/2024 12:55 PM Age: 79 years old Clinical indication: Other: Abnormal weight loss; Prior surgery; Surgery date: 6+ months; Surgery type: Gb; Patient HX: 20 lb weight loss in 2 months TECHNIQUE: Imaging protocol: Computed tomography of the abdomen and pelvis without contrast. Radiation optimization: All CT scans at this facility use at least one of these dose optimization techniques: automated exposure control; mA and/or kV adjustment per patient size (includes targeted exams where dose is matched to clinical indication); or iterative reconstruction. COMPARISON: US renal BI* [id number] 02/27/2024 2:37 PM RADIATION DOSE METRICS: Total DLP (mGy-cm): 531 FINDINGS: Pleural spaces: Trace bilateral pleural effusions. Liver: Normal. No mass. Gallbladder and biliary ducts: There has been a cholecystectomy. Pancreas: Normal. No ductal dilation. Spleen: Normal. No splenomegaly. Adrenal glands: Normal. No mass. Kidneys and ureters: Left lower pole renal cysts with peripheral calcifications and heterogeneous contents along the base of the lesion measuring 7.1 x 8.6 x 12.3 centimeters, the soft tissue component measures 8.9 x 3.9 centimeters. Bilateral renal cysts. Stomach and bowel: Unremarkable. No obstruction. No mucosal thickening. Appendix: No evidence of appendicitis. Intraperitoneal space: Unremarkable. No free air. No significant fluid collection. Vasculature: Scattered calcified atherosclerotic plaques of the abdominal aorta and iliac arteries without significant stenosis. Lymph nodes: Unremarkable. No enlarged lymph nodes. Urinary bladder: Diffuse bladder wall thickening, with multiple bladder diverticuli. Reproductive: Enlarged prostate with nodular indentation of the bladder base. Bones/joints: Chronic multilevel degenerative changes of the thoracolumbar spine with endplate sclerosis, space disc narrowing, and associated vacuum phenomena. No acute fractures, normal alignment. No marked central canal stenosis. Soft tissues: Unremarkable. Other findings: . CT/CT abdomen pelvis wo con [id number] IMPRESSION: 1. Left renal large complex cyst measuring 12.3 centimeters maximally, with a soft tissue component at the lower pole of the lesion measuring 8.9 centimeters. Further evaluation with MRI with and without contrast may be obtained. 2. Prostatomegaly with nodular indentation of the bladder base. Defer to clinical and laboratory assessment/PSA levels. COMMENTS: Consistent with the [employer]'s Incidental Findings Committee white paper (J Am Beulah Radiol 2018): Any incidental renal lesion less than 1 cm or classified as too small to characterize, or any incidental cystic renal lesion characterized as simple-appearing, is likely benign. No follow-up imaging is recommended for these lesions per consensus recommendations based on imaging criteria.
== END | disposition home or self-care (01) ==
LOC: RAD 12:46
PROVIDERS: PCP Family Medicine; Visit Provider Family Medicine
DX: Z01.89 Encounter for other specified special examinations (principal); Z98.890 Other specified postprocedural states; N28.1 Cyst of kidney, acquired; N40.0 Benign prostatic hyperplasia without lower urinary tract symptoms; N32.3 Diverticulum of bladder; N32.89 Other specified disorders of bladder; M47.815 Spondylosis without myelopathy or radiculopathy, thoracolumbar region; M48.05 Spinal stenosis, thoracolumbar region
CPT/HCPCS: 74176

== ENCOUNTER → 2024-05-04 13:43 | Outpatient (BNVA) | payer OTHER, SELFPAY | PROVIDERS: PCP Family Medicine; Visit Provider Internal Medicine Cardiovascular Disease | DX: E78.2 Mixed hyperlipidemia (principal); I13.0 Hypertensive heart and chronic kidney disease with heart failure and stage 1 through stage 4 chronic kidney disease, or unspecified chronic kidney disease; N18.9 Chronic kidney disease, unspecified; I50.33 Acute on chronic diastolic (congestive) heart failure; I25.10 Atherosclerotic heart disease of native coronary artery without angina pectoris; I73.9 Peripheral vascular disease, unspecified | CPT/HCPCS: 99214 ==

== ENCOUNTER → 2024-05-10 12:53 | Outpatient (BNVA) | payer MEDICARE, OTHER, SELFPAY | PROVIDERS: PCP Family Medicine; Visit Provider Podiatrist Foot & Ankle Surgery | DX: B35.1 Tinea unguium (principal); I73.9 Peripheral vascular disease, unspecified; N18.32 Chronic kidney disease, stage 3b; L84 Corns and callosities; M20.41 Other hammer toe(s) (acquired), right foot; M20.42 Other hammer toe(s) (acquired), left foot; L97.522 Non-pressure chronic ulcer of other part of left foot with fat layer exposed | CPT/HCPCS: 11055; 11721 ==

== ENCOUNTER 2024-06-23 12:38 | Outpatient (CLI) | payer MEDICARE, OTHER, SELFPAY ==
[2024-06-23 13:38] LABS: Basophils # 0.1 10^3/uL (0.0-0.1); Basophils % 0.9 %; Eosinophils # 0.1 10^3/uL (0.0-0.8); Lymphocytes # 1.1 10^3/uL (0.8-4.8); Lymphocytes % 18.2 %; Mean Corpuscular HGB Conc 31.8 g/dL (30-55); Mean Corpuscular Hemoglobin 28.6 pg (27-33); Mean Corpuscular Volume 90.2 fl (82-101); Mean Platelet Volume 9.9 fL (7.4-10.4); Monocytes # 0.6 10^3/uL (0.2-0.9); Monocytes % 10.1 %; Neutrophils % 69.5 %; Nucleated Red Blood Cells % 0 %; Platelet Count 219 10^3/cmm (157-399); Red Blood Count 3.77 10^6/uL (3.85-5.65); Red Cell Distribution Width 15.5 % (12.1-15.1); White Blood Count 5.76 10^3/uL (3.29-11.43)
[2024-06-23 14:00] LABS: Alanine Aminotransferase 19 U/L (0-41); Albumin Level 4.2 g/dL (3.5-5.2); Alkaline Phosphatase 71 U/L (40-130); Anion Gap 15.8 (5-19); Aspartate Amino Transferase 28 U/L (0-40); Blood Urea Nitrogen 39 mg/dL (8-23); Carbon Dioxide 24 mmol/L (22-29); Chloride 102 mmol/L (98-107); Globulin 2.5 g/dL (1.3-4.6); Glucose 91 mg/dL (65-115); Osmolality Calculated 293 mOsm/kg (285-295); Potassium 4.8 mmol/L (3.5-5.1); Sodium 137 mmol/L (136-145); Total Bilirubin 0.9 mg/dL (0.15-1.2); Total Protein 6.7 g/dL (6.6-8.7)
== END 2024-06-23 12:39 | disposition home or self-care (01) ==
LOC: LAB 12:39
PROVIDERS: PCP Family Medicine; Visit Provider Nurse Practitioner Family
DX: L30.9 Dermatitis, unspecified (principal)
CPT/HCPCS: 36415; 80053; 85025

== ENCOUNTER → 2024-07-02 09:06 | Outpatient (BNVA) | payer MEDICARE, OTHER, SELFPAY | PROVIDERS: PCP Family Medicine; Visit Provider Nurse Practitioner Family | DX: L81.7 Pigmented purpuric dermatosis (principal); Z48.02 Encounter for removal of sutures; L57.0 Actinic keratosis | CPT/HCPCS: 17000; 99213 ==

== ENCOUNTER → 2024-07-12 13:04 | Outpatient (BNVA) | payer MEDICARE, OTHER, SELFPAY | PROVIDERS: PCP Family Medicine; Visit Provider Podiatrist Foot & Ankle Surgery | DX: B35.1 Tinea unguium (principal); I73.9 Peripheral vascular disease, unspecified; L84 Corns and callosities; M20.41 Other hammer toe(s) (acquired), right foot; M20.42 Other hammer toe(s) (acquired), left foot; L97.522 Non-pressure chronic ulcer of other part of left foot with fat layer exposed; N18.32 Chronic kidney disease, stage 3b | CPT/HCPCS: 11055; 11721 ==

== ENCOUNTER 2024-08-30 11:53 | Outpatient (CLI) | payer MEDICARE, OTHER, SELFPAY ==
[2024-08-30 12:42] LABS: Basophils % 0.3 %; Eosinophils # 0.1 10^3/uL (0.0-0.8); Eosinophils % 1.2 %; Hematocrit 34.6 % (37-53); Lymphocytes # 1.3 10^3/uL (0.8-4.8); Lymphocytes % 19.8 %; Mean Corpuscular HGB Conc 32.1 g/dL (30-55); Mean Corpuscular Hemoglobin 27.2 pg (27-33); Mean Corpuscular Volume 84.8 fl (82-101); Mean Platelet Volume 9.6 fL (7.4-10.4); Monocytes # 0.6 10^3/uL (0.2-0.9); Monocytes % 9.3 %; Neutrophils # 4.57 10^3/uL (1.8-7.7); Neutrophils % 68.8 %; Nucleated Red Blood Cells % 0 %; Platelet Count 214 10^3/cmm (157-399); Red Blood Count 4.08 10^6/uL (3.85-5.65); Red Cell Distribution Width 15.8 % (12.1-15.1); White Blood Count 6.65 10^3/uL (3.29-11.43)
[2024-08-30 12:58] LABS: Creatinine Urine, Random 53 mg/dL (39-259); Microalbumin Random Urine 7 ug/dL (0-20)
[2024-08-30 12:59] LABS: Anion Gap 11.6 (5-19); Blood Urea Nitrogen 48 mg/dL (8-23); Calcium 9.4 mg/dL (8.5-10.5); Carbon Dioxide 26 mmol/L (22-29); Chloride 102 mmol/L (98-107); Glucose 86 mg/dL (65-115); Potassium 4.6 mmol/L (3.5-5.1); Sodium 135 mmol/L (136-145)
[2024-08-30 13:00] LABS: Microalbum Creatinine Ratio Ur 132 mg/dL (0-20)
[2024-08-30 13:09] LABS: Calcium 9.2 mg/dL (8.5-10.5); Parathyroid Hormone 28.3 pg/mL (15-65)
== END 2024-08-30 11:54 | disposition home or self-care (01) ==
LOC: LAB 11:57
PROVIDERS: PCP Family Medicine; Visit Provider Registered Nurse
DX: N18.32 Chronic kidney disease, stage 3b (principal)
CPT/HCPCS: 36415; 80069; 82044; 82310; 83970; 85025

== ENCOUNTER → 2024-09-13 13:37 | Outpatient (BNVA) | payer MEDICARE, OTHER, SELFPAY | PROVIDERS: PCP Family Medicine; Visit Provider Podiatrist Foot & Ankle Surgery | DX: B35.1 Tinea unguium (principal); I73.9 Peripheral vascular disease, unspecified; L84 Corns and callosities; M20.41 Other hammer toe(s) (acquired), right foot; M20.42 Other hammer toe(s) (acquired), left foot; L97.522 Non-pressure chronic ulcer of other part of left foot with fat layer exposed; N18.32 Chronic kidney disease, stage 3b | CPT/HCPCS: 11055; 11721 ==

== ENCOUNTER 2024-10-18 13:20 | Outpatient (CLI) | payer MEDICARE, OTHER, SELFPAY ==
--- NOTE | 2024-10-18 13:33 | MR_ITS ---
WS: [id number] MRI ABDOMEN with and without CONTRAST. COMPARISON: CT 04/15/2024, renal ultrasound 02/27/2020 Multiplanar, multisequence imaging is performed with and without contrast. MultiHance 19 mL. History: Complex renal cyst, weight loss. Heart is markedly enlarged. Greatest enlargement involves the atria. Small pericardial effusion. Smal l RIGHT pleural effusion. RIGHT kidney: Normal size kidney. Multiple T2 hyperintense masses are identified scattered throughout the kidney. The largest from the superior pole measures 5.8 x 5.5 cm. None of these T2 hyperintense masses enhance. There are a few tiny cortical signal intensities which also do not enhance. No obstru ction of the kidney. LEFT kidney: Normal size kidney. Numerous predominately cystic masses are identified. There is a very large complex mass which is T2 hyperintense and variable but predominantly low signal on the T1 sequ ences. This mass arises from the superior kidney measuring 11.1 x 8.7 cm. On the T2 sequences there a re low signal septa running through the mass. On the postcontrast imaging there is no enhancement. No ne of the cystic masses within the LEFT kidney enhance. There is no obstruction. Normal appearance of the liver. Prior cholecystectomy. No intrahepatic bile duct dilatation. Negative pancreas and adrenal glands. No ascites or adenopathy. Only partially visualized are multiple diverticula from the apex of the urinary bladder. Largest dive rticulum is just to the LEFT of midline measuring 2.9 x 3.4 cm. No enhancement on the postcontrast im aging. Atherosclerosis aorta with no aneurysm. MR/MR abdomen wo/w con* [id number] IMPRESSION: 1. Numerous bilateral renal cysts. Some of these are simple cyst and others ar e complex but there is no enhancement or solid component identified on the post contrast sequences. 2. The complex cyst superior pole LEFT kidney measures 11.1 x 8.7 cm. This cys t is heterogeneous but there is no enhancement. 3. Prior cholecystectomy. 4. Biatrial enlargement.
== END 2024-10-18 13:21 | disposition home or self-care (01) ==
LOC: RAD 13:21
PROVIDERS: PCP Family Medicine; Visit Provider Urology
DX: N28.1 Cyst of kidney, acquired (principal); N40.1 Benign prostatic hyperplasia with lower urinary tract symptoms; Z90.49 Acquired absence of other specified parts of digestive tract; I51.7 Cardiomegaly; I70.0 Atherosclerosis of aorta; N32.3 Diverticulum of bladder; I31.39 Other pericardial effusion (noninflammatory)
CPT/HCPCS: 74183

== ENCOUNTER → 2024-11-15 12:51 | Outpatient (BNVA) | payer MEDICARE, OTHER, SELFPAY | PROVIDERS: PCP Family Medicine; Visit Provider Podiatrist Foot & Ankle Surgery | DX: I73.9 Peripheral vascular disease, unspecified (principal); B35.1 Tinea unguium; L84 Corns and callosities; M20.41 Other hammer toe(s) (acquired), right foot; M20.42 Other hammer toe(s) (acquired), left foot; N18.32 Chronic kidney disease, stage 3b; R60.9 Edema, unspecified | CPT/HCPCS: 11055; 11721; 99213 ==

== ENCOUNTER → 2024-11-29 12:41 | Outpatient (BNVA) | payer MEDICARE, OTHER, SELFPAY | PROVIDERS: PCP Family Medicine; Visit Provider Podiatrist Foot & Ankle Surgery | DX: M20.42 Other hammer toe(s) (acquired), left foot (principal); M20.41 Other hammer toe(s) (acquired), right foot; B35.1 Tinea unguium; L84 Corns and callosities; N18.32 Chronic kidney disease, stage 3b; R60.9 Edema, unspecified | CPT/HCPCS: 28011; A6219 ==

== ENCOUNTER → 2024-12-09 14:16 | Outpatient (BNVA) | payer MEDICARE, OTHER, SELFPAY | PROVIDERS: PCP Family Medicine; Visit Provider Podiatrist Foot & Ankle Surgery | DX: M20.41 Other hammer toe(s) (acquired), right foot (principal); M20.42 Other hammer toe(s) (acquired), left foot; B35.1 Tinea unguium; L84 Corns and callosities; N18.32 Chronic kidney disease, stage 3b; R60.9 Edema, unspecified | CPT/HCPCS: 99024 ==

== ENCOUNTER → 2024-12-14 08:08 | Outpatient (BNVA) | payer MEDICARE, OTHER, SELFPAY | PROVIDERS: PCP Family Medicine; Visit Provider Family Medicine | DX: Z01.818 Encounter for other preprocedural examination (principal); I10 Essential (primary) hypertension | CPT/HCPCS: 80048; 81000 ==

== ENCOUNTER → 2024-12-22 09:49 | Outpatient (BNVA) | payer MEDICARE, OTHER, SELFPAY | PROVIDERS: PCP Family Medicine; Visit Provider Nurse Practitioner Family | DX: I50.33 Acute on chronic diastolic (congestive) heart failure (principal); E78.2 Mixed hyperlipidemia; I25.10 Atherosclerotic heart disease of native coronary artery without angina pectoris; I10 Essential (primary) hypertension; I73.9 Peripheral vascular disease, unspecified | CPT/HCPCS: 99213 ==

== ENCOUNTER 2025-01-10 11:21 | Outpatient (CLI) | payer MEDICARE, OTHER, SELFPAY ==
[2025-01-10 13:25] LABS: Calcium 9.4 mg/dL (8.5-10.5)
[2025-01-10 13:26] LABS: Albumin Level 4.3 g/dL (3.5-5.2); Anion Gap 13.7 (5-19); Blood Urea Nitrogen 49 mg/dL (8-23); Calcium 9.3 mg/dL (8.5-10.5); Carbon Dioxide 28 mmol/L (22-29); Chloride 102 mmol/L (98-107); Glucose 93 mg/dL (65-115); Phosphorus 3.9 mg/dL (2.5-4.5); Potassium 4.7 mmol/L (3.5-5.1); Sodium 139 mmol/L (136-145)
[2025-01-10 13:29] LABS: Creatinine Urine, Random 79 mg/dL (39-259); Microalbum Creatinine Ratio Ur 63 mg/dL (0-20); Microalbumin Random Urine 5 ug/dL (0-20)
[2025-01-10 13:32] LABS: Parathyroid Hormone 47.9 pg/mL (15-65)
== END 2025-01-10 11:22 | disposition home or self-care (01) ==
LOC: LAB 11:24
PROVIDERS: PCP Family Medicine; Visit Provider Registered Nurse
DX: N18.32 Chronic kidney disease, stage 3b (principal)
CPT/HCPCS: 36415; 80069; 82044; 82310; 83970

== ENCOUNTER 2025-01-21 11:51 | Outpatient (CLI) | payer MEDICARE, OTHER, SELFPAY ==
--- NOTE | 2025-01-21 12:00 | USCV_ITS ---
[place] Age: 80 Gender: M : 1945 Exam Date: 01/21/2025 12:26 Ordering Phys: Molly Velasquez NP Technologist: OCTAVIO [place] [facility] [place]: TR BP: 150 / 99 HR: 60 Rhythm: Sinus Technical Quality: Adequate MEASUREMENTS (Male / Female) Normal Values 2D ECHO LV Diastolic Diameter PLAX 4.0 cm 4.2 - 5.9 / 3.9 - 5.3 cm IVS Diastolic Thickness 1.2 cm 0.6 - 1.0 / 0.6 - 0.9 cm IVS Systolic Thickness 1.9 cm LVPW Diastolic Thickness 1.4 cm 0.6 - 1.0 / 0.6 - 0.9 cm LVPW Systolic Thickness 1.6 cm LVOT Diameter 2.1 cm LV Ejection Fraction 2D Teich 66.9 % LV Ejection Fraction MOD 4C 60.2 % LV Ejection Fraction MOD 2C 57.3 % LV Ejection Fraction 2C AL 59.7 % LA Diameter 4.9 cm RA Systolic Volume 4C AL 179.6 ml RA Systolic Volume 4C MOD 163.2 ml LA Sys Volume AL 105.7 cm cubed LA Sys Volume Index AL 46.3 cm cubed/m squared Aorta at Sinotubular Diameter 2.4 cm M-MODE LA Ao Ratio MM 2.0 AV Cusp Separation MM 1.7 cm DOPPLER LVOT Peak Velocity 69.0 cm/s MV Peak Velocity 104.0 cm/s MV Area PHT 3.8 cm squared Mitral E to A Ratio 3.7 TR Peak Velocity 294.5 cm/s TR Peak Gradient 34.7 mmHg TR Mean Velocity 215.0 cm/s TR Mean Gradient 20.6 mmHg TR Velocity Time Integral 94.5 cm TV Peak E Velocity 124.0 cm/s PV Peak Velocity 75.0 cm/s FINDINGS Left Ventricle Mild left ventricular concentric hypertrophy. Normal wall motion and thickening with no regional wall motion abnormalities. Estimated LVEF normal at 60%. Right Ventricle Normal right ventricular size and systolic function. Right Atrium Dilated right atrium Left Atrium Normal left atrial size. Mitral Valve Mildly thickened mitral valve. There is mild mitral annulus calcification. There is a trace mitral regurgitation. Aortic Valve Mildly thickened aortic valve. No aortic stenosis. Tricuspid Valve Structurally normal tricuspid valve. There is a mild tricuspid regurgitation. Mildly elevated TR gradient and elevated PA pressure (35 to 40 mmHg) Pulmonic Valve Structurally normal pulmonic valve. Trace pulmonary valve regurgitation. Pericardium No pericardial effusion. Aorta Normal aorta. IVC Inferior vena cava not visualized. CONCLUSIONS Mild concentric LVH. Normal left ventricular systolic function. Estimated LVEF normal at 60%. Mild tricuspid regurgitation with moderately dilated right atrium. Normal RV size and function. Mildly elevated pulmonary pressures (35-40 mmHg). Laury Silveira MD (Electronically Signed) Final Date: 21 January 2025 15:04 S
== END 2025-01-21 11:52 | disposition home or self-care (01) ==
PROVIDERS: PCP Family Medicine; Visit Provider Nurse Practitioner Family
DX: I50.33 Acute on chronic diastolic (congestive) heart failure (principal); I34.81 Nonrheumatic mitral (valve) annulus calcification; I35.8 Other nonrheumatic aortic valve disorders; I07.1 Rheumatic tricuspid insufficiency
CPT/HCPCS: 93306

== ENCOUNTER → 2025-01-31 13:41 | Outpatient (BNVA) | payer MEDICARE, OTHER, SELFPAY | PROVIDERS: PCP Family Medicine; Visit Provider Podiatrist Foot & Ankle Surgery | DX: N18.32 Chronic kidney disease, stage 3b (principal); B35.1 Tinea unguium; L84 Corns and callosities; R60.9 Edema, unspecified | CPT/HCPCS: 11055; 11721 ==

== ENCOUNTER → 2025-04-04 13:02 | Outpatient (BNVA) | payer MEDICARE, OTHER, SELFPAY | PROVIDERS: PCP Family Medicine; Visit Provider Podiatrist Foot & Ankle Surgery | DX: I73.9 Peripheral vascular disease, unspecified (principal); B35.1 Tinea unguium; L84 Corns and callosities; R60.9 Edema, unspecified | CPT/HCPCS: 11055; 11721 ==

== ENCOUNTER 2025-05-18 14:06 | Outpatient (CLI) | payer MEDICARE, OTHER, SELFPAY ==
[2025-05-18 15:29] LABS: Hematocrit 34.6 % (37-53); Hemoglobin 11.60 g/dL (11.27-16.99); Mean Corpuscular HGB Conc 33.5 g/dL (30-55); Mean Corpuscular Hemoglobin 30.6 pg (27-33); Mean Corpuscular Volume 91.3 fl (82-101); Nucleated Red Blood Cells % 0 %; Platelet Count 197 10^3/cmm (157-399); Red Blood Count 3.79 10^6/uL (3.85-5.65); White Blood Count 6.40 10^3/uL (3.29-11.43)
[2025-05-18 15:35] LABS: Creatinine Urine, Random 115 mg/dL (39-259)
[2025-05-18 15:39] LABS: Microalbum Creatinine Ratio Ur 61 mg/dL (0-20)
[2025-05-18 15:47] LABS: Albumin Level 4.0 g/dL (3.5-5.2); Anion Gap 16.7 (5-19); Blood Urea Nitrogen 50 mg/dL (8-23); Calcium 8.6 mg/dL (8.5-10.5); Carbon Dioxide 23 mmol/L (22-29); Chloride 104 mmol/L (98-107); Glucose 133 mg/dL (65-115); Potassium 4.7 mmol/L (3.5-5.1); Sodium 139 mmol/L (136-145)
[2025-05-18 15:48] LABS: Calcium 8.6 mg/dL (8.5-10.5)
== END 2025-05-18 14:07 | disposition home or self-care (01) ==
LOC: LAB 14:07
PROVIDERS: PCP Family Medicine; Visit Provider Registered Nurse
DX: N18.32 Chronic kidney disease, stage 3b (principal)
CPT/HCPCS: 36415; 80069; 82044; 82310; 83970; 85025

== ENCOUNTER → 2025-07-04 13:57 | Outpatient (BNVA) | payer MEDICARE, OTHER, SELFPAY | PROVIDERS: PCP Family Medicine; Visit Provider Podiatrist Foot & Ankle Surgery | DX: E11.8 Type 2 diabetes mellitus with unspecified complications (principal); B35.1 Tinea unguium; L84 Corns and callosities; R60.9 Edema, unspecified | CPT/HCPCS: 11055; 11721 ==

== ENCOUNTER → 2025-08-22 14:04 | Outpatient (BNVA) | payer MEDICARE, OTHER, SELFPAY | PROVIDERS: PCP Family Medicine; Visit Provider Internal Medicine Cardiovascular Disease | DX: I11.0 Hypertensive heart disease with heart failure (principal); I50.33 Acute on chronic diastolic (congestive) heart failure; I25.10 Atherosclerotic heart disease of native coronary artery without angina pectoris; I73.9 Peripheral vascular disease, unspecified; E78.5 Hyperlipidemia, unspecified; Z79.01 Long term (current) use of anticoagulants; Z86.73 Personal history of transient ischemic attack (TIA), and cerebral infarction without residual deficits; R06.02 Shortness of breath | CPT/HCPCS: 36415; 80048; 83880; 99214 ==

== ENCOUNTER 2025-08-30 13:13 | Outpatient (CLI) | payer MEDICARE, OTHER, SELFPAY ==
[2025-08-30 14:03] LABS: Anion Gap 13.8 (5-19); Blood Urea Nitrogen 50 mg/dL (8-23); Calcium 9.4 mg/dL (8.5-10.5); Carbon Dioxide 30 mmol/L (22-29); Chloride 102 mmol/L (98-107); Glucose 103 mg/dL (65-115); Osmolality Calculated 306 mOsm/kg (285-295); Potassium 4.8 mmol/L (3.5-5.1); Sodium 141 mmol/L (136-145)
== END 2025-08-30 13:14 | disposition home or self-care (01) ==
LOC: LAB 13:14
PROVIDERS: PCP Family Medicine; Visit Provider Internal Medicine Cardiovascular Disease
DX: I50.33 Acute on chronic diastolic (congestive) heart failure (principal); I73.9 Peripheral vascular disease, unspecified
CPT/HCPCS: 36415; 80048

== ENCOUNTER 2025-09-05 09:50 | Outpatient (CLI) | payer MEDICARE, OTHER, SELFPAY ==
[2025-09-05 10:47] LABS: Hematocrit 41.8 % (37-53); Hemoglobin 13.60 g/dL (11.27-16.99); Mean Corpuscular HGB Conc 32.5 g/dL (30-55); Mean Corpuscular Hemoglobin 29.7 pg (27-33); Mean Corpuscular Volume 91.3 fl (82-101); Nucleated Red Blood Cells % 0 %; Platelet Count 212 10^3/cmm (157-399); Red Blood Count 4.58 10^6/uL (3.85-5.65); White Blood Count 8.02 10^3/uL (3.29-11.43)
[2025-09-05 11:11] LABS: Albumin Level 4.6 g/dL (3.5-5.2); Anion Gap 14.7 (5-19); Blood Urea Nitrogen 47 mg/dL (8-23); Calcium 9.4 mg/dL (8.5-10.5); Carbon Dioxide 27 mmol/L (22-29); Chloride 102 mmol/L (98-107); Glucose 75 mg/dL (65-115); Potassium 4.7 mmol/L (3.5-5.1); Sodium 139 mmol/L (136-145)
[2025-09-05 11:21] LABS: Creatinine Urine, Random 81 mg/dL (39-259)
[2025-09-05 11:22] LABS: Microalbum Creatinine Ratio Ur 49 mg/dL (0-20)
[2025-09-05 12:01] LABS: Calcium 9.2 mg/dL (8.5-10.5)
== END 2025-09-05 09:51 | disposition home or self-care (01) ==
LOC: LAB 09:51
PROVIDERS: PCP Family Medicine; Visit Provider Registered Nurse
DX: N18.4 Chronic kidney disease, stage 4 (severe) (principal)
CPT/HCPCS: 36415; 80069; 82044; 82310; 83970; 85025

== ENCOUNTER 2025-09-17 23:46 | Emergency (ER) | payer MEDICARE, OTHER, SELFPAY ==
--- OUTSIDE RECORDS SUMMARY | 2024-07-29 07:00 | XMS_ITS ---
Author Organization [facility] Address [address] [place] [address] Care Team Providers Care Export Clerk Name Role Phone Krissy Alex Unavailable [phone] Lina Brewster Unavailable REASON FOR VISIT 2m f/u w MRI w PVR Encounters Encounter Location Date Provider Diagnosis [facility] [address] [address] 07/29/2024 Lina Brewster Plan Of Treatment Next Appt Details Provider Name:Lina Padilla, 11/21/2025 11:00:00 AM, [address], [place] [address], [place], [address], Progress Notes * PAM DUARTE LDOB:[birth year] (80 yo M)Acc No.[id number]:07/29/2024 Progress Notes Patient: Kelvin VELARDEPAM Provider: YANICK Castillo :1945 A ge:79 Y S ex:Male Date:07/29/2024 Address:[address] [place] [address] Subjective: * Chief Complaints: * 2 m f/u w MRI w PVR * Electronic signature of YANICK Moraes on 09/17/2025 at 11:51 PM HVAC TECHNICIAN RESIDENTIAL Sign off status: Pending * Provider: YANICK Castillo Date: 1 Generated for Rocco scott/Karen/Zaheer on: 1 11/18/2024 11:51 PM HVAC TECHNICIAN RESIDENTIAL
--- OUTSIDE RECORDS SUMMARY | 2025-01-24 05:00 | XMS_ITS ---
Author Organization [facility] Address [address] [place] [address] Care Team Providers Care Air Drill Operator Name Role Phone Alex Rey Unavailable [phone] Lina Brewster Unavailable REASON FOR VISIT 6m f/u w MRI @ [facility] and pvr Encounters Encounter Location Date Provider Diagnosis [facility] [address] [place] [address] [address] 01/24/2025 Lina Brewster Plan Of Treatment Next Appt Details Provider Name:Lina Padilla, 11/21/2025 11:00:00 AM, [address], [place] [address], [place], [address], Progress Notes * PAM DUARTE LDOB:[birth year] (80 yo M)Acc No.[id number]:01/24/2025 Progress Notes Patient: Kelvin VELARDEPAM Provider: YANICK Castillo :1945 A ge:80 Y S ex:Male Date:01/24/2025 Address:[address] [place] [address] Subjective: * Chief Complaints: * 6 m f/u w MRI @ [facility]a and pvr Billing Information: * Procedure Codes: * Electronic signature of YANICK Moraes on 09/17/2025 at 11:50 PM CHAPERONE Sign off status: Pending * Provider: Jess Brewster, HUMAN RESOURCES TALENT MANAGER Date: 0 01/24/2025 Generated for Rocco scott/Prudence on: 1 11/18/2024 11:50 PM CHAPERONE
--- OUTSIDE RECORDS SUMMARY | 2025-09-12 14:00 | XMS_ITS | Encounter Summary ---
Author Organization [facility] Address [address] [address] Phone Care Team Providers Care Insurance Loss Adjuster Name Role Phone Aislinn Liu MD Primary Care Provider [phone] Reason for Visit * Reason Comments Chronic Kidney Disease * Addn'tl Auth/Follow Up Care (Routine) - Authorized Specialty Diagnoses / Procedures Referred By Contac t Referred To Contact Nephrology Diagnoses Stage 3b chronic kidney disease Procedures Nephrology Comprehensive Aislinn Liu MD [address] [place] [address] Phone: tel: fax: Cecelia Fitzgerald MD [address] [address] Phone: tel: fax: Referral ID Status Reason Start Date Expiration Date Visits Requested Visits Authorized [id number] Authorized Consult and Treat 05/17/2025 05/23/2026 [id number] Encounter Details Date Type Department Care Team (Late st Contact Info) Description 09/12/2025 2:00 PM FRONT OFFICE SUPERVISOR Office Visit [facility] [address] [place] [address] Kira Reid NP [address] [address] Essential (primary) hypertension (Primary Dx); Chronic kidney disease stage 4 (HCC); Vitamin D deficiency, not otherwise specified Social History Tobacco Use Types Packs/Day Years Used Date Smoking Tobacco: Never Passive Smoke Exposure: Never Smokeless Tobacco: Never Alcohol Use Standard Drinks/Week Comments Never 0 (1 standard drink = 0.6 oz pur e alcohol) AUDIT-C Answer Date Recorded Frequency of Alcohol Consumption Never 10/01/2019 Average Number of Drinks Not on file 019 Frequency of Binge Drinking Not on file 09/06 Sex and Gender Information Value Date Recorded Sex Assigned at Not on file Legal Sex Male 12:37 PM EST Gender Identity Not on file Sexual Orientation Not on file documented as of this encounter Last Filed Vital Signs Vital Sign Reading Time Taken Comments Blood Pressure 110/66 09/12/2025 1:59 PM FRONT OFFICE SUPERVISOR Pulse 68 09/12/2025 1:59 PM FRONT OFFICE SUPERVISOR Temperature - - Respiratory Rate - - Oxygen Saturation - - Inhaled Oxygen Concentration - - Weight 104 kg (230 lb) 09/12/2025 1:59 PM FRONT OFFICE SUPERVISOR Height 182.9 cm (6') 09/12/2025 1:59 PM FRONT OFFICE SUPERVISOR Body Mass Index 31.19 09/12/2025 1:59 PM FRONT OFFICE SUPERVISOR documented in this encounter Patient Instructions * Patient Instructions* Kira Reid NP - 09/12/2025 2:00 PM FRONT OFFICE SUPERVISOR Stop hydralazine and check blood pressure daily around noon If blood pressure higher than 140/75 call doctor. [phone] documented in this encounter Progress Notes * Kira Reid NP - 09/12/2025 2:00 PM CST Images from the original note were not included. [facility] Chief Complaint: Follow up on CKD G4 PCP: Aislinn Liu MD Nephrology Problem List: CKD G4 Hypertension DM II Well-controlled Negative for retinopathy TATO Hx CPAP use Incontinence Follows with Dr. Jacobs History of Present Illness: Blake Head is a 80 y.o. male here today for ongoing management and assessment of CKD G4 and associated medical conditions. The patient has a past medical history most significant for problems listed in Nephrology Problem List noted above and updated today. His last visit with this office was on 01/17/2025. SrCr is 2.4, with an estimated GFR of 27 ml/min. UAC 49 mg/g. Hydrating fair Struggling with CPAP compliance: has consult this afternoon for Jolly. Mass on kidney being monitored by urology: [facility] urology Dr. Dominguez Reviewed his current labs, historical trend and renal disease status. Past Medical History: Diagnosis Date ??? Atrial fibrillation (HCC) ??? Cerebral artery occlusion, unspecified, with cerebral infarction (HCC) ??? Chronic kidney disease ??? Hypertension ??? Pneumonia childhood ??? Sleep apnea Social History Socioeconomic History ??? Marital status: Unknown Spouse name: Not on file ??? Number of children: Not on file ??? Years of education: Not on file ??? Highest education level: Not on file Occupational History ??? Not on file Tobacco Use ??? Smoking status: Never Passive exposure: Never ??? Smokeless tobacco: Never Vaping Use ??? Vaping status: Never Used Substance and Sexual Activity ??? Alcohol use: Never ??? Drug use: Not Currently ??? Sexual activity: Not on file Other Topics Concern ??? Lives Alone No ??? Spouse Yes ??? Significant Other No ??? Family Member No ??? Peoplesoft Hcm Developer No ??? Assisted Living Facility No ??? Impairment No ??? Memory Deficit Yes ??? Hearing Loss No ??? Poor Vision or Blindness No ??? Limited Mobility Yes ??? Transportation Challenges No Social History Narrative ??? Not on file Social Drivers of Health Financial Resource Strain: Not on file Food Insecurity: Not on file Transportation Needs: Not on file Physical Activity: Not on file Stress: Not on file Social Connections: Not on file Intimate Partner Violence: Not on file Housing Stability: Not on file Family History Problem Relation Age of Onset ??? Diabetes Mother ??? Heart disease Mother ??? Hypertension Father ??? Heart disease Father ??? Stroke Father ??? Cancer Father Review of Systems: Constitutional: Positive for weight loss. Respiratory: Negative for shortness of breath. Cardiovascular: Negative for orthopnea and leg swelling. Allergies Allergen Reactions ??? Penicillins Current Outpatient Medications: ??? acetaminophen (TYLENOL 8 HOUR) 650 MG 8 hr tablet, Take 650 mg by mouth every 6 (six) hours if needed, Disp: , Rfl: ??? albuterol HFA (PROVENTIL HFA;VENTOLIN HFA) 108 (90 Base) MCG/ACT inhaler, Inhale 2 puffs every 6 (six) hours if needed for wheezing, Disp: , Rfl: ??? apixaban (ELIQUIS) 5 MG tablet, Take 2.5 mg by mouth in the morning and 2.5 mg in the evening.,Disp: , Rfl: ??? Ascorbic Acid (vitamin C) 250 MG tablet, Take 250 mg by mouth 1 (one) time each day, Disp: , Rfl: ??? co-enzyme Q-10 30 MG capsule, Take 30 mg by mouth 1 (one) time each day, Disp: , Rfl: ??? dilTIAZem (TIAZAC) 180 MG 24 hr capsule, Take 180 mg by mouth 1 (one) time each day, Disp: , Rfl: ??? famotidine (PEPCID) 20 MG tablet, Take 20 mg by mouth 1 (one) time each day , Disp: , Rfl: ??? finasteride (PROSCAR) 5 MG tablet, Take 5 mg by mouth 1 (one) time each day , Disp: , Rfl: ??? fluticasone (FLONASE) 50 MCG/ACT nasal spray, Administer 1 spray into each nostril continuouslyif needed, Disp: , Rfl: ??? furosemide (Lasix) 40 MG tablet, Take 40 mg by mouth 1 (one) time each day, Disp: , Rfl: ??? levothyroxine sodium (TIROSINT) 100 MCG capsule, Take 100 mcg by mouth every other day, Disp: ,Rfl: ??? lisinopril (PRINIVIL,ZESTRIL) 40 MG tablet, Take 40 mg by mouth daily, Disp: , Rfl: ??? loratadine (CLARITIN) 10 MG tablet, Take 10 mg by mouth twice a day, Disp: , Rfl: ??? metoprolol succinate XL (TOPROL-XL) 200 MG 24 hr tablet, Take 200 mg by mouth every night, Disp: , Rfl: ??? Multiple Vitamins-Minerals (MULTIVITAMIN WITH MINERALS) tablet, Take 1 tablet by mouth 1 (one) time each day, Disp: , Rfl: ??? nitroglycerin (NITROSTAT) 0.4 MG SL tablet, Place 0.4 mg under the tongue, Disp: , Rfl: ??? simvastatin (ZOCOR) 20 MG tablet, Take 10 mg by mouth every night , Disp: , Rfl: ??? tamsulosin (FLOMAX) 0.4 MG 24 hr capsule, Take 0.8 mg by mouth daily (Patient taking differently: Take 0.4 mg by mouth in the morning.), Disp: , Rfl: ??? UNABLE TO FIND, Med Name: Fruits and vegetable, Disp: , Rfl: ??? Wixela Inhub 250-50 MCG/ACT aerosol powder , Inhale 1 puff 1 (one) time each day, Disp: , Rfl: ??? oxyCODONE (ROXICODONE) 5 MG immediate release tablet, Take 5 mg by mouth every 4 (four) hours if needed (Patient not taking: Reported on 09/12/2025), Disp: , Rfl: ??? torsemide (DEMADEX) 20 MG tablet, Take 20 mg by mouth 1 (one) time each day (Patient taking differently: Take 20 mg by mouth every other day), Disp: , Rfl: Vital Signs: BP 110/66 (BP Location: Left upper arm, Patient Position: Sitting, BP Cuff Size: Large adult) Pulse 68 Ht 6' (1.829 m) Wt 230 lb (104 kg) BMI 31.19 kg/m?? Physical Exam Constitutional: No distress. Eyes: Pupils are equal, round, and reactive to light. Musculoskeletal: General: No edema. Skin: Skin is warm and dry. Labs: Chemistry Lab Units 09/05/25 0000 05/18/25 1452 01/10/25 0000 08/30/24 1235 06/10/24 0851 03/15/24 0000 02/11/24 1526 02/02/24 1509 CREATININE mg/dL 2.4 2.4 2.3 2.0 2.18 1.73 2.90 3.25 BUN mg/dL 47 50 49 48 38 35 42 50 POTASSIUM mEq/L 4.7 4.7 4.7 4.6 4.5 4.3 5.0 4.8 SODIUM mEq/L 139 139 139 135 138 133 136 136 CO2 mmol/L 27 23 28 26 22 21 23 23 CHLORIDE 102 104 102 102 106 102 103 102 ALBUMIN g/dL 4.6 4.0 4.3 4.0 4.2 4.1 3.9 3.9 EGFR -- 28 28 33 30 40 -- 19 WBC AUTO K/uL 8.02 6.40 -- 6.65 6.3 6.2 8.5 -- HEMATOCRIT % 41.8 34.6 -- 34.6 32.9 33.5 32.0 -- HEMOGLOBIN g/dL 13.60 11.60 -- 11.10 10.7 10.5 10.4 -- PLATELETS AUTO 212 197 -- 214 224 259 308 -- Bone Mineral Lab Units 09/05/25 0000 05/18/25 1452 01/10/25 0000 08/30/24 1235 06/10/24 0851 03/15/24 0000 02/11/24 1526 01/20/24 1512 12/29/23 0000 12/02/23 1126 CALCIUM mg/dL 9.4 8.6 9.3 9.4 9.5 9.0 9.1 < > 8.8 8.9 PHOSPHORUS mg/dL 3.5 3.4 3.9 4.0 -- 2.7 3.8 < > -- 2.9 PTH pg/mL 33.6 57.1 47.9 28.3 -- -- -- -- 86.4 94.8 VIT D 25 HYDROXY ng/mL -- -- -- -- -- -- -- -- 38.3 33.8 < > = values in this interval not displayed. No lab exists for component: IRON SATURATION ICD-10-CM ICD-9-CM 1. Essential (primary) hypertension I10 401.0 2. Chronic kidney disease stage 4 (HCC) N18.4 585.4 CBC Renal Function Panel PTH, Intact Urine Albumin / Creatinine Ratio CBC Renal Function Panel PTH, Intact Urine Albumin / Creatinine Ratio 3. 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 Baseline Cr 2.1-2.5, eGFR 27-33%. UAC 49 Reviewed following with urology Clear hydration at ~ 50 ounces daily Avoid NSAIDS RTC 6 months with INPATIENT CARE MANAGER RN labs Hypertension with CKD: BP on the lower side and having some orthostatic symptoms Stop hydralazine in which he had already stopped his afternoon dose given dizziness. Take blood pressure at noon daily to make sure it is not getting to high or too low. I suspect he will soon need to decrease his metoprolol 200 mg daily HLD with CKD: On statin tx. CHF with atrial fibrillation: BLE swelling minimal Continue current therapeis Fluid restrict ~50 Oz a day and low sodium diet. Disposition: Return in about 6 months (around 03/13/2026). Patient is compliant with medical recommendations and therapy. Thank you for allowing me to participate in the care of this patient. Please do not hesitate to contact me with any questions or concerns. Kira Reid NP [facility] documented in this encounter Plan of Treatment Upcoming Encounters Date Type Department Care Team (Late st Contact Info) Description 03/13/2026 11:30 AM CDT Office Visit [facility] [address] [place] [id number] Chasidy Roth NP [address] [facility] [address] [place] [address] Scheduled Orders Name Type Priority Associated Diagnoses Orde r Schedule CBC Lab Routine Chronic kidney disease stage 4 (HCC) Expected: 03/13/2026 (Approximate), Expires: 10/13/2026 Renal Function Panel Lab Routine Chronic kidney disease stage 4 (HCC) Expected: 03/13/2026 (Approximate), Expires: 10/13/2026 Vitamin D 25 Hydroxy Lab Routine Vitamin D deficiency, not otherwise specified Expected: 03/13/2026 (Approximate), Expires: 10/13/2026 PTH, Intact Lab Routine Chronic kidney disease stage 4 (HCC) Expected: 03/13/2026 (Approximate), Expires: 10/13/2026 Urine Albumin / Creatinine Ratio Lab Routine Chronic kidney disease stage 4 (HCC) Expected: 03/13/2026 (Approximate), Expires: 10/13/2026 documented as of this encounter Visit Diagnoses Diagnosis Essential (primary) hypertension- Primary Chronic kidney disease stage 4 (HCC) Vitamin D deficiency, not otherwise specified documented in this encounter Care Teams Insurance Loss Adjuster Relationship Specialty Start Date End Date Aislinn Liu MD [address] [place] [address] PCP - General Family Medicine 06/16/24 documented as of this encounter
[2025-09-17 23:48] VITALS: BP 155/97; PULSE 103; RESP 18; TEMP 38.1; O2SAT 94; BMI 31.4
--- OUTSIDE RECORDS SUMMARY | 2025-09-17 23:50 | XMS_ITS | Patient Health Record ---
Author Organization [facility] Address [address] [place] [address] Care Team Providers Care Stage Builder Name Role Phone Alex Rey Unavailable [phone] Lina Brewster Unavailable Allergies Allergen (clinical drug ingredient) Drug/Non Drug Allergy documented on EMR Reaction Allergy Type Onset Date Status Penicillin Unknown Drug Allergy Active Results Component Value Reference Range [place] - [id number] Reviewed date:02/16/2025 10:57:53 AM Interpretation: Performing Lab: Notes/Report: Glucose 0 Bili 0 Ketones 0 Sp [place] 1.010 Blood 0 pH 6.5 Protein 0 Urobili 0 Nitrites 0 Leukocytes 0 Reason For Referral Reason Bph with luts Diagnosis 1 Benign localized pro static hyperplasia with lower urinary tract symptoms (LUTS) (N40.1) Referring Provider First Name [facility] Referring Provider Last Name SD Referring Provider [facility] Referred Organization [facility] Referred Provider Alex Rey Referred Address [address],[place], [place],[address], Referred Provider Specialty Urology Referral Priority Routine Medications Medication SIG (Take, Route, Frequency, Duration) Notes Start Date End Date Status Tamsulosin HCl 0.4 MG Capsule 1 capsule Orally Once a day at bedtime Active Torsemide 20 MG Tablet as directed Orally Active dilTIAZem HCl ER 180 MG Capsule Extended Release 24 Hour 1 capsule Orally Once a day Active Finasteride 5 MG Tablet 1 tablet Orally Once a day Active Diclofenac Active Tamsulosin HCl 0.4 MG Capsule 1 capsule Orally Once a day; Duration: 90 days 02/16/2025 02/11/2026 Active traMADol HCl 50 MG Tablet 1 tablet as ne eded Orally Once a day Active Wixela Inhub 250-50 MCG/ACT Aerosol Powder Breath Activated 1 puff Inhalation Twice a day Active Social History Tobacco Use: Social History Observation Description Date Details (start date - stop date) Never Smoker NA - NA Social History Tobacco Use: Social Info Question Answer Notes Tobacco Control (Standard) Tobacco use: Nonsmoker Problems Problem Type SNOMED Code ICD Code Onset Dates Problem Status W/U Status Risk Notes Problem Obstructive uropathy (5855174) Other obstructive and reflux uropathy (N13.8) Active confirmed Problem Lower urinary tract symptoms due to benign prostatic hypertrophy (06078543603917) Benign prostatic hyperplasia with lower urinary tract symptoms (N40.1) Active confirmed Problem Urinary retention (898417438) Urinary retention (R33.9) Active confirmed Problem Complex renal cyst (419952798) Complex renal cyst (N28.1) Active confirmed Problem Lower urinary tract symptoms due to benign prostatic hypertrophy (92506504972136) Benign localized prostatic hyperplasia with lower urinary tract symptoms (LUTS) (N40.1) Active confirmed Vital Signs Heart Rate 86 /min 02/16/2025 Temperature 97.2 degrees Fahrenheit 02/16/2025 Blood pressure diastolic 72 mm Hg 02/16/2025 Height-cm 182.88 cm 02/16/2025 Weight-kg 97.25 kg 02/16/2025 Height 72 in 02/16/2025 Blood pressure systolic 129 mm Hg 02/16/2025 Weight 214.4 lbs 02/16/2025 BMI 29.07 kg/m2 02/16/2025 Procedures Procedure Date Ordered Date Performed Result Body Sit e PVR (Post Void Residual) 02/16/2025 02/16/2025 N/A Encounters Encounter Location Date Provider Diagnosis [facility] [address] [place] [address] Dr Sandhu [address] [place] [address], [place] [address] 02/16/2025 Lina Brewster Benign prostatic hyperplasia with lower urinary tract symptoms N40.1 ; Complex renal cyst N28.1 and Urinary retention R33.9 [facility] [address] [place], [place] [address] [address] 02/16/2025 Alex Rey Benign prostatic hyperplasia with lower urinary tract symptoms N40.1 [facility] [address] [place] [address] 02/16/2025 Alex Rey [facility] [address] [place] [address] 02/15/2025 Alex Realsay [facility] [address] [place] [address] 01/20/2025 Alex Rey [facility] [address] [place] [address] 01/06/2025 Alex Rey Assessments Encounter Date Diagnosis (ICD Code) Assessment Notes Treatment Notes Treatment Clinical Notes Section Notes 02/16/2025 Benign prostatic hyperplasia with lower urinary tract symptoms (ICD-10 - N40.1) 02/16/2025 Benign prostatic hyperplasia with lower urinary tract symptoms (ICD-10 - N40.1) PLAN - CONTINUE TO TAKE MEDICATION PRESCRIBED. - refilled tamsulosin, [facility] [place], still taking Finasteride 02/16/2025 Complex renal cyst (ICD-10 - N28.1) MRI COMPLETED AT [facility], WILL NEED POWERSHARED TO OUR SYSTEM, poor surgical candidate, patient CANNOT come off of anticoagulation, poor cardiac health 02/16/2025 Urinary retention (ICD-10 - R33.9) Patient may come to the clinic for nurse visit if he feels they feel they are not emptying and need to have their bladder checked 02/16/2025 Other PATIENT WILL FOLLOW UP IN 9 months with MRI with and without contrast, UA PVR Plan Of Treatment Pending Test Test Name Order Date MRI Abdomen w/ + w/o [id number] 07/22/20 24 Future Test Test Name Order Date Blood Urea Nitrogen (BUN) [id number] 10/06/19 26 Creatinine (B) 64053 10/06/2025 MRI Pelvis w/ + w/o [id number] Next Appt Details Provider Name:Lina Padilla, 11/21/2025 11:00:00 AM, [address], [place], [address], Insurance Providers Payer Name Payer Address Payer Phone Subscriber Number Group Number Insured Name Patient Relationship to Insured Coverage Start Date Coverage End Date [employer] [address] [place] [phone] [id number] PAM DUARTE Self - patient is the insured [place] Medicare [address] [place] [phone] [id number] PAM DUARTE Self - patient is the insured Medical (General) History Medical History History ICD Code A- Fib HTN Back pain, Chronic Stage 3 Kidney Disease Surgical History Surgery Date(Month/Year) Gallbladder
--- OUTSIDE RECORDS SUMMARY | 2025-09-17 23:51 | XMS_ITS | Clinical Summary ---
Author Organization [facility] Address [address] Alcaraz: Epic Prelude ADT [place] [address] Care Team Providers Care Security Alarm Technician Name Role Phone Non-Staff, Physician Primary Care Provider Unava ilable Allergies Active Allergy Reactions Criticality Noted Date Comments Penicillins Unknown 10/15/2018 Medications hydrALAZINE (APRESOLINE) 50 mg tablet Take 50 mg by mouth 2 times daily. 9 Active azelastine-flut icasone 137-50 mcg/spray [place], Non-Aerosol Administer 2 Sprays in each nostril daily. 9 Active Multivitamins with Fluoride (MULTI-VITAMIN ORAL) Take by mouth. 9 Active polyethylene glycol 3350 (MIRALAX) 17 gram/dose Powder Take 17 Grams by mouth Continuous as needed for Constipation Dissolve in 8 ounces of fluid and drink entire liquid . 9 Active lisinopriL (PRINIVIL) 40 mg tablet Take 40 mg by mouth daily. 9 Active menthol (STOPAIN TOPICAL) Apply to affected area Continuous as needed. 9 Active azelastine (ASTEPRO) 0.15 % (205.5 mcg) nasal spray Administer 1 [place] in each nostril daily. 9 Active sertraline (ZOLOFT) 100 mg tablet Take 100 mg by mouth daily. 9 Active levocarnitine (L-CARNITINE ORAL) Take by mouth 2 times daily. 9 Active coenzyme Q10 Capsule Take 10 mg by mouth daily. 9 Active traZODone (DESYREL) 100 mg tablet Take 50 mg by mouth daily at bedtime. Active simvastatin (ZOCOR) 20 mg tablet Take 20 mg by mouth daily with supper. Active saw/vit E/sod flor/lyc/beta/py g (PROSTATE HEALTH ORAL) Take by mouth 3 times daily. Active omeprazole (PriLOSEC) 20 mg Capsule, Delayed Release(E.C.) Take 20 mg by mouth 2 times daily. Active metoprolol succinate (TOPROL XL) 200 mg Extended Release 24 hour tablet Take 200 mg by mouth daily. Active ascorbic acid, vitamin C, 1,000 mg Tablet Sustained Release Take 5,000 mg by mouth daily. Active apixaban (ELIQUIS) 5 mg tablet Take by mouth 2 times daily. Active loratadine (CLARITIN) 10 mg tablet Take 10 mg by mouth 2 times daily. Active nitroglycerin (NITROSTAT) 0.4 mg Tablet, Sublingual Place 0.4 mg under tongue Continuous as needed for Chest Pain. Active diltiaZEM (CARDIZEM) 120 mg Tablet Take 120 mg by mouth daily. Active acetaminophen (TYLENOL ARTHRITIS) 650 mg Extended Release tablet Take 650 mg by mouth every 6 hours as needed for Pain. Active tamsulosin (FLOMAX) 0.4 mg capsule Take 0.4 mg by mouth daily. Active baclofen (LIORESAL) 20 mg tablet Take 20 mg by mouth 3 times daily. Active donepeziL (ARICEPT) 5 mg tablet Take 5 mg by mouth daily. 3 Active diclofenac sodium (VOLTAREN) 1 % gelIndications: Chronic foot pain, left Apply 2 Grams to affected area 4 times daily. 100 Gram 2 9 Active promethazine (PHENERGAN) 25 mg tabletIndicatio ns:Non-intracta ble vomiting with nausea, unspecified vomiting type Take 0.5 Tablets (12.5 mg) by mouth every 6 hours as needed for Nausea/Emesis. 90 Tablet 0 9 Active Additional Information Patient not taking.Reported on 12/19/2021 famotidine (PEPCID) 20 mg tablet Take 20 mg by mouth daily. Active finasteride (PROSCAR) 5 mg tablet Take 5 mg by mouth daily. 9 Active oxyCODONE-aceta minophen (PERCOCET) 10-325 mg Tablet Take 1 Tablet by mouth every 6 hours as needed. Active Active Problems Problem Noted Date Diagnosed Date Longstanding persistent atrial fibrillation 12/04 Essential (primary) hypertension 10/01/2019 Stage 3b chronic kidney disease 10/01/2019 Overview (12/19/2021): Update for Diagnosis Load Immunizations Immunization Administration Dates Next Due Influenza Seasonal Unspecified Formulation IM Social History Tobacco Use Types Packs/Day Years Used Date Smoking Tobacco: Never Smokeless Tobacco: Never Sex and Gender Information Value Date Recorded Sex Assigned at Not on file Legal Sex Male 9:31 AM MILL REPRESENTATIVE Gender Identity Not on file Sexual Orientation Not on file Last Filed Vital Signs Vital Sign Reading Time Taken Comments Blood Pressure 122/70 12/19/2021 2:16 PM CDT Pulse 85 12/19/2021 2:16 PM CDT Temperature 36.7 C (98 F) 12/19/2021 2:16 PM CDT Respiratory Rate 18 12/19/2021 2:16 PM CDT Oxygen Saturation 98% 12/19/2021 2:16 PM CDT Inhaled Oxygen Concentration - - Weight 105.7 kg (233 lb) 12/19/2021 2:16 PM CDT Height 182.9 cm (6') 12/19/2021 2:16 PM CDT Body Mass Index 31.6 12/19/2021 2:16 PM CDT Plan of Treatment Health Maintenance Due Date Last Done Comments DTAP/TDAP/TD VACCINES (1 - Tdap) 01/15/1964 PNEUMOCOCCAL VACCINE 50+ YEARS (1 of 1 - PCV) 01/14/19 95 ZOSTER VACCINE (1 of 2) 1995 RSV VACCINE (60+ or ) (1 - 1-dose 75+ series) 01/15/2020 INFLUENZA VACCINE (#1) 2025 07/06/2021 COLORECTAL SCREENING Discontinued 05/21/2018 Colorectal Cancer Screening Discontinued FIT-DNA Q 3 years Discontinued FIT/FOBT Q 1 year Discontinued Flex Sig/CT Colonography Q 5 years Discontinued Insurance MEDICARE PART A AND B FOR [employer] Care Teams Security Alarm Technician Relationship Specialty Start Date End Date Non-Staff, Physician NO ADDRESS ON FILE PCP - General 08/30/20
--- OUTSIDE RECORDS SUMMARY | 2025-09-17 23:52 | XMS_ITS | Encounter Summary ---
Author Organization [facility] [employer] [facility] Address [address] [facility] [address] [place] [address] Phone Care Team Providers Care Engineer Operations And Maintenance Name Role Phone Aislinn Liu MD Primary Care Provider [phone] Encounter Details Date Type Department Care Team (Late Contact Info) Description 04/02/2019 Orders Only [facility] [address] [facility] [address] [place] [address] John Vera MD Other specified abnormal finding of blood chemistry Social History Tobacco Use Types Packs/Day Years Used Date Smoking Tobacco: Never Sex and Gender Information Value Date Recorded Sex Assigned at Not on file Legal Sex Male 12:37 PM EST Gender Identity Not on file Sexual Orientation Not on file documented as of this encounter Plan of Treatment Upcoming Encounters Date Type Department Care Team (Late Contact Info) Description 03/13/2026 11:30 AM CDT Office Visit [facility] [address] [place] [address] Chasidy Roth NP [address] [facility] [address] [place] [address] documented as of this encounter Visit Diagnoses Diagnosis Other specified abnormal finding of blood chemistry documented in this encounter Care Teams Engineer Operations And Maintenance Relationship Specialty Start Date End Date Aislinn Liu MD [address] [place] [address] PCP - General Family Medicine 06/16/24 documented as of this encounter
--- OUTSIDE RECORDS SUMMARY | 2025-09-17 23:52 | XMS_ITS | Clinical Summary ---
[facility] Organization [facility] Address [address] [place] [address] Phone Care Team Providers Care Artificial Breeding Distributor Name Role Phone Aislinn Liu MD Primary Care Provider [phone] Allergies Active Allergy Reactions Criticality Noted Date Comments Penicillins 10/15/2018 Medications tamsulosin (FLOMAX) 0.4 MG 24 hr capsule Take 0.8 mg by mouth daily Active simvastatin (ZOCOR) 20 MG tablet Take 10 mg by mouth every night Active nitroglycerin (NITROSTAT) 0.[address] 0.4 mg under the tongue Active metoprolol succinate XL (TOPROL-XL) 200 MG 24 hr tablet Take 200 mg by mouth every night Active loratadine (CLARITIN) 10 MG tablet Take 10 mg by mouth twice a day Active lisinopril (PRINIVIL,ZESTRI L) 40 MG tablet Take 40 mg by mouth daily Active finasteride (PROSCAR) 5 MG tablet Take 5 mg by mouth 1 (one) time each day 07/29/20 19 Active apixaban (ELIQUIS) 5 MG tablet Take 2.5 mg by mouth in the morning and 2.5 mg in the evening. Active acetaminophen (TYLENOL 8 HOUR) 650 MG 8 hr tablet Take 650 mg by mouth every 6 (six) hours if needed Active Multiple Vitamins-Mineral s (MULTIVITAMIN WITH MINERALS) tablet Take 1 tablet by mouth 1 (one) time each day Active famotidine (PEPCID) 20 MG tablet Take 20 mg by mouth 1 (one) time each day Active levothyroxine sodium (TIROSINT) 100 MCG capsule Take 100 mcg by mouth every other day Active fluticasone (FLONASE) 50 MCG/ACT nasal spray Administer 1 spray into each nostril continuously if needed 06/02/20 23 Active co-enzyme Q-10 30 MG capsule Take 30 mg by mouth 1 (one) time each day Active Ascorbic Acid (vitamin C) 250 MG tablet Take 250 mg by mouth 1 (one) time each day Active dilTIAZem (TIAZAC) 180 MG 24 hr capsule Take 180 mg by mouth 1 (one) time each day 11/26/19 24 Active Wixela Inhub 250-50 MCG/ACT aerosol powder Inhale 1 puff 1 (one) time each day 12/29/19 24 Active oxyCODONE (ROXICODONE) 5 MG immediate release tablet Take 5 mg by mouth every 4 (four) hours if needed 12/11/19 24 Active torsemide (DEMADEX) 20 MG tablet Take 20 mg by mouth 1 (one) time each day Active albuterol HFA (PROVENTIL HFA;VENTOLIN HFA) 108 (90 Base) MCG/ACT inhaler Inhale 2 puffs every 6 (six) hours if needed for wheezing Active UNABLE TO FIND Med Name: Fruits and vegetable Active furosemide (Lasix) 40 MG tablet Take 40 mg by mouth 1 (one) time each day 12/15/19 25 Active hydrALAZINE 50 MG tabletIndication s:Essential (primary) hypertension Take 1 tablet (50 mg total) by mouth in the morning and 1 tablet (50 mg total) in the evening. 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 Office Visit [facility] [address] [place] [facility] [id number] Kira Reid NP Essential (primary) hypertension (Primary Dx); Chronic kidney disease stage 4 (HCC); Vitamin D deficiency, not otherwise specified 09/05/2025 Documentation Only [facility], [facility] [address] [place] [address] Savi Terrell MA 08/30/2025 [facility]phone [facility], [facility] [address] [place] [address] Cecelia Fitzgerald MD from Last 3 Months Family History Medical History Relation Comments Cancer Father Heart disease Father Hypertension Father Stroke Father Diabetes Mother Heart disease Mother Relation Status Comments Father Mother Social History Tobacco Use Types Packs/Day Years Used Date Smoking Tobacco: Never Passive Smoke Exposure: Never Smokeless Tobacco: Never Tobacco Cessation:Counseling Given: Not Answered Alcohol Use Standard Drinks/Week Comments Never 0 [...] Comments Blood Pressure 110/66 09/12/2025 1:59 PM CHUCKING MACHINE OPERATOR Pulse 68 09/12/2025 1:59 PM CHUCKING MACHINE OPERATOR Temperature 36.3 C (97.4 F) 09/12/2020 2:51 PM CHUCKING MACHINE OPERATOR Respiratory Rate - - Oxygen Saturation 95% 09/08/2024 1:44 PM CHUCKING MACHINE OPERATOR Inhaled Oxygen Concentration - - Weight 104 kg (230 lb) 09/12/2025 1:59 PM CHUCKING MACHINE OPERATOR Height 182.9 cm (6') 09/12/2025 1:59 PM CHUCKING MACHINE OPERATOR Body Mass Index 31.19 09/12/2025 1:59 PM CHUCKING MACHINE OPERATOR Plan of Treatment Upcoming Encounters Date Type Department Care Team (Late st Contact Info) Description 03/13/2026 11:30 AM CDT [facility] [place] [address] Chasidy Roth, DAIJA [address] [facility] [address] [place] [address] Health Maintenance Due Date Last Done Comments Pneumococcal Vaccine: 50+ Years (2 of 2 - PPSV23, PCV20, or PCV21) 09/04/2015 07/10/2015, 06/03/2011 Diabetes: Hemoglobin A1C 09/07/2025 03/27/2022, 03/06 Diabetes: Ophthalmology Exam 09/07/2025 Diabetes: Pedal Pulse Checked 09/07/2025 Diabetes: Sensory Foot Exam 09/07/2025 Diabetes: Visual Foot Exam 09/07/2025 Pneumococcal Vaccine: Peds (0 to 5 Years) and At-Risk Patients (6 to 49 Years) Discontinued 07/10/2015, 06/03/2011 Influenza Vaccine Completed 08/15/2025, , 09/01/2023, Additional history exists Hepatitis B Vaccine Aged Out No longe r eligible based on patient's age to complete this topic Procedures Procedure Name Priority Date/Time Associated Diagnosis Comments PTH, INTACT Routine 09/05/2025 Chronic kidney disease stage 4 (HCC) URINE ALBUMIN / CREATININE RATIO Routine 09/05/2025 Chronic kidney disease stage 4 (HCC) CBC Routine 09/05/2025 Chronic kidney disease stage 4 (HCC) RENAL FUNCTION PANEL Routine 09/05/2025 Chronic kidney disease stage 4 (HCC) HEMOGLOBIN A1C (EXTERNAL RESULT ENTRY) Routine 03/27/2022 9:10 AM CDT from Last 3 Months or Most Recently Relevant to Health Maintenance Results * Urine albumin / creatinine ratio (09/05/2025) Albumin, Urine 4 mg/dL PRINT /EXTERNAL (NON-INTERFACE D LABS) Creatinine, Urine Random 81 mg/dL PRINT/EXTERNAL (NON-INTERFACE D LABS) Alb/Creat Ratio, Ur 49 mg/g Creat PRINT/EXTERNAL (NON-INTERFACE D LABS) Urine 09/05/2025 Narrative PRINT/EXTERNAL (NON-INTERFACED LABS) - 09/05/[address] [address] Chasidy Gonzalez LOCATION DIRECTOR LAB URINE ORDERABLES Tamara l Result PRINT/EXTERNAL (NON-INTERFACED LABS) * CBC (09/05/2025) WBC 8.02 K/uL PRINT/EXTE RNAL (NON-INTERFACE D LABS) Red Blood Cell Count 4.58 PRINT/EXTERNAL (NON-INTERFACE D LABS) Hemoglobin 13.60 g/dL PRINT/EXT ERNAL (NON-INTERFACE D LABS) Hematocrit 41.8 % PRINT/EXT ERNAL (NON-INTERFACE D LABS) MCV 91.3 PRINT/EXTE RNAL (NON-INTERFACE D LABS) MCH 29.7 PRINT/EXTE RNAL (NON-INTERFACE D LABS) MCHC 32.5 PRINT/EXTE RNAL (NON-INTERFACE D LABS) RDW 14.6 PRINT/EXTE RNAL (NON-INTERFACE D LABS) Platelet Count 212 PRINT /EXTERNAL (NON-INTERFACE D LABS) MPV 9.7 PRINT/EXTE RNAL (NON-INTERFACE D LABS) Absolute Neutrophils 6.08 PRINT/EXTERNAL (NON-INTERFACE D LABS) Absolute Lymphocytes 1.0 PRINT/EXTERNAL (NON-INTERFACE D LABS) Absolute Monocytes 0.7 PRINT/EXTERNAL (NON-INTERFACE D LABS) Absolute Eosinophils 0.1 PRINT/EXTERNAL (NON-INTERFACE D LABS) Absolute Basophils 0.1 PRINT/EXTERNAL (NON-INTERFACE D LABS) Neutrophils 75.8 K/uL PRINT/EX TERNAL (NON-INTERFACE D LABS) Lymphocytes 13 PRINT/EX TERNAL (NON-INTERFACE D LABS) Monocytes 8.5 PRINT/EXTE RNAL (NON-INTERFACE D LABS) Eosinophils 1.6 PRINT/EX TERNAL (NON-INTERFACE D LABS) Basophils 0.6 PRINT/EXTE RNAL (NON-INTERFACE D LABS) Blood 09/05/2025 Narrative PRINT/EXTERNAL (NON-INTERFACED LABS) - 09/05/[address] [facility] [address] [place] [id number] Chasidy Roth LOCATION DIRECTOR LAB BLOOD ORDERABLES Tamara l Result Performing Organization Address City/[facility]/ZIP Co de Phone Number PRINT/EXTERNAL (NON-INTERFACED LABS) * PTH, intact (09/05/2025) Parathyroid Hormone, Intact 33.6 pg/mL PRINT/INTERSTATE BUS DISPATCHER AL (NON-INTERFACE D LABS) Blood 09/05/2025 Narrative PRINT/EXTERNAL (NON-INTERFACED LABS) - 09/05/2025 2:29 PM CHUCKING MACHINE OPERATOR [facility] [address] [place] [id number] Chasidy Roth LOCATION DIRECTOR LAB BLOOD ORDERABLES Tamara l Result Performing Organization Address [facility]/ZIP Co de Phone Number PRINT/EXTERNAL (NON-INTERFACED LABS) * Renal function panel (09/05/2025) Glucose 75 mg/dL PRINT/EXTE RNAL (NON-INTERFACE D LABS) BUN 47 mg/dL PRINT/EXTE RNAL (NON-INTERFACE D LABS) Creatinine 2.4 mg/dL PRINT/EXT ERNAL (NON-INTERFACE D LABS) Sodium 139 mEq/L PRINT/EXTE RNAL (NON-INTERFACE D LABS) Potassium 4.7 mEq/L PRINT/EXTE RNAL (NON-INTERFACE D LABS) Chloride 102 PRINT/EXTE RNAL (NON-INTERFACE D LABS) Carbon Dioxide 27 mmol/L PRINT /EXTERNAL (NON-INTERFACE D LABS) Calcium 9.4 mg/dL PRINT/EXTE RNAL (NON-INTERFACE D LABS) Phosphorus, Serum 3.5 mg/dL PRINT/EXTERNAL (NON-INTERFACE D LABS) Albumin (Blood) 4.6 g/dL PRIN T/EXTERNAL (NON-INTERFACE D LABS) eGFR Non-Afr Algerian 27 PRINT/EXTERNAL (NON-INTERFACE D LABS) Blood 09/05/2025 Narrative PRINT/EXTERNAL (NON-INTERFACED LABS) - 09/05/[address] [facility] [address] [address] Chasidy Roth LOCATION DIRECTOR LAB BLOOD ORDERABLES Tamara murrell Result PRINT/EXTERNAL (NON-INTERFACED LABS) * Hemoglobin A1C (03/27/2022 9:10 AM CDT) Hemoglobin A1C 5.4 Blood specimen (specimen) Venous blood / Unknown 03/27/2022 9:10 AM CDT Narrative Samantha De La Garza - 04/01/2022 1:51 PM CDT Performing Lab: Jaquan Estrada [facility] [CLIA# [id number]] [address] [facility] [place] [address] us Margarito Husseinland LAB BLOOD ORDERABLES Final Resu lt from Last 3 Months or Most Recently Relevant to Health Maintenance [place] [address] Regions 1,2,3 ([employer]AC[employer]) Care Teams Artificial Breeding Distributor Relationship Specialty Start Date End Date Aislinn Liu MD [address] [place] [address] PCP - General Family Medicine 06/16/24
--- OUTSIDE RECORDS SUMMARY | 2025-09-17 23:52 | XMS_ITS | Encounter Summary ---
Author Organization [facility] Address [address] [place] [address] Care Team Providers Care Foot Miter Operator Name Role Phone Non-Staff, Physician Primary Care Provider Unava ilable Encounter Details Date Type Department Care Team (Late st Contact Info) Description 05/26/2019 Ancillary Orders [facility] Emergency Medicine [address] [facility] [address] [place] [address] Jayesh Albrecht, [address] [place] [address] Social History Tobacco Use Types Packs/Day Years Used Date Smoking Tobacco: Never Smokeless Tobacco: Never Sex and Gender Information Value Date Recorded Sex Assigned at Not on file 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
--- OUTSIDE RECORDS SUMMARY | 2025-09-17 23:52 | XMS_ITS | Clinical Summary ---
Author Organization [facility] Address [address] [facility] [place] [address] Care Team Providers Care Healthcare Associate Name Role Phone Non-Staff, Physician Primary Care Provider Unava ilable Allergies Active Allergy Reactions Criticality Noted Date Comments Penicillins Unknown 10/15/2018 Medications lisinopril (PRINIVIL) 40 mg tablet Take 40 mg by mouth daily. Active hydrALAZINE (APRESOLINE) 50 mg tablet Take 50 mg by mouth 2 times daily. Active Multivitamins with Fluoride (MULTI-VITAMIN ORAL) Take by mouth. Activ e azelastine-flut icasone 137-50 mcg/spray Howell, Non-Aerosol Administer 2 Sprays in each nostril daily. Active polyethylene glycol 3350 (MIRALAX) 17 gram/dose Powder Take 17 Grams by mouth Continuous as needed for Constipation Dissolve in 8 ounces of fluid and drink entire liquid . Active menthol (STOPAIN TOPICAL) Apply to affected area Continuous as needed. Active coenzyme Q10 Capsule Take 10 mg by mouth daily. Active metoprolol succinate (TOPROL XL) 200 mg Extended Release 24 hour tablet Take 200 mg by mouth daily. Active saw/vit E/sod flor/lyc/beta/py g (PROSTATE HEALTH ORAL) Take by mouth 3 times daily. Active levocarnitine (L-CARNITINE ORAL) Take by mouth 2 times daily. Active azelastine (ASTEPRO) 0.15 % (205.5 mcg) nasal spray Administer 1 Howell in each nostril daily. Active traZODone (DESYREL) 100 mg tablet Take 50 mg by mouth daily at bedtime. Active ascorbic acid, vitamin C, (VITAMIN C) 1,000 mg Tablet Sustained Release Take 5,000 mg by mouth daily. Active sertraline (ZOLOFT) 100 mg tablet Take 100 mg by mouth daily. Active omeprazole (PriLOSEC) 20 mg Capsule, Delayed Release(E.C.) Take 20 mg by mouth 2 times daily. Active simvastatin (ZOCOR) 20 mg tablet Take 20 mg by mouth daily with supper. Active apixaban (ELIQUIS) 5 mg tablet Take by mouth 2 times daily. Active acetaminophen (TYLENOL ARTHRITIS) 650 mg Extended Release tablet Take 650 mg by mouth every 6 hours as needed for Pain. Active loratadine (CLARITIN) 10 mg tablet Take 10 mg by mouth 2 times daily. Active diltiaZEM (CARDIZEM) 120 mg Tablet Take 120 mg by mouth daily. Active nitroglycerin (NITROSTAT) 0.4 mg Tablet, Sublingual Place 0.4 mg under tongue Continuous as needed for Chest Pain. Active tamsulosin (FLOMAX) 0.4 mg capsule Take 0.4 mg by mouth daily. Active donepezil (ARICEPT) 5 mg tablet Take 5 mg by mouth daily. 3 9 Active baclofen (LIORESAL) 20 mg tablet Take 20 mg by mouth 3 times daily. Active promethazine (PHENERGAN) 25 mg tabletIndicatio ns:Non-intracta ble vomiting with nausea, unspecified vomiting type Take 0.5 Tablets (12.5 mg) by mouth every 6 hours as needed for Nausea/Emesis. 90 Tablet 9 Active diclofenac sodium (VOLTAREN) 1 % gelIndications: Chronic foot pain, left Apply 2 Grams to affected area 4 times daily. 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 Gender Identity Not on file Sexual Orientation Not on file Last Filed Vital Signs Vital Sign Reading Time Taken Comments Blood Pressure 132/84 05/20/2019 12:22 PM CDT Pulse 86 05/20/2019 12:22 PM CDT Temperature 36 C (96.8 F) 05/20/2019 12:22 PM CDT Respiratory Rate 18 05/18/2019 8:56 PM CDT Oxygen Saturation 96% 05/20/2019 12: 22 PM CDT Inhaled Oxygen Concentration - - Weight 106.5 kg (234 lb 12.8 oz) 2018 12:22 PM CDT Height 182.9 cm (6') 05/20/2019 12:22 PM CDT Body Mass Index 31.84 05/20/2019 12:22 PM CDT Plan of Treatment Health Maintenance Due Date Last Done Comments DTAP/TDAP/TD VACCINES (1 - Tdap) 01/15/1964 PNEUMOCOCCAL VACCINE 50+ YEARS (1 of 1 - PCV) 01/14/19 95 ZOSTER VACCINE (1 of 2) 1995 RSV VACCINE (60+ or ) (1 - 1-dose 75+ series) 01/15/2020 INFLUENZA VACCINE (#1) 2025 COLORECTAL SCREENING Discontinued 05/21/2018 Colorectal Cancer Screening Discontinued FIT-DNA Q 3 years Discontinued FIT/FOBT Q 1 year Discontinued Flex Sig/CT Colonography Q 5 years Discontinued Insurance MEDICARE PART A AND B [employer] Care Teams Healthcare Associate Relationship Specialty Start Date End Date Non-Staff, Physician NO ADDRESS ON FILE PCP - General 08/30/20
--- NOTE | 2025-09-18 00:14 | XRR_ITS ---
PROCEDURE INFORMATION: Exam: XR Chest Exam date and time: 09/18/2025 12:17 AM Age: 80 years old Clinical indication: Fever and shortness of breath; Fever with SOB and general weakness; Additional info: Fever weakness TECHNIQUE: Imaging protocol: Radiologic exam of the chest. Views: 1 view. COMPARISON: CR XR chest 1V portable [id number] 03/08/2024 4:08 PM FINDINGS: Lungs: Possible retrocardiac left basilar airspace opacification. Pleural spaces: No substantial pleural effusion or pneumothorax. Heart/Mediastinum: Stable cardiomegaly. Vasculature: Aortic atherosclerotic calcification. Bones/joints: Spondylosis. XR/XR chest 1V portable [id number] IMPRESSION: Possible retrocardiac left basilar airspace opacification versus summation artifact.
[2025-09-18 00:17] VITALS: BP 143/88; PULSE 89; RESP 17; O2SAT 92
--- NOTE | 2025-09-18 00:47 | W.ED.WEAKNES ---
HPI - Weakness General: Chief complaint: Weakness Stated complaint: WEAKNESS Time Seen by Provider: 09/18/25 00:10 History of Present Illness: Patient is an elderly male presenting with a 2-3 day history of generalized weakness, particularly affecting his lower extremities, with difficulty walking. He reports having to switch from his usual cane to a walker over the past couple of nights due to increased weakness in his knees. The patient also complains of a cough with congestion and sputum production. He denies vomiting or diarrhea, though mentions he thought he might get sick last night but did not. The patient had a documented fever in the emergency department, though reportedly did not have fever at home. There is mention of possible mild confusion associated with the fever. The patient reports a rough voice but denies sore throat. The patient's caregiver notes concern about his legs, stating that earlier today the patient was saying 'his legs didn't work' and they had difficulty getting him out of a shop. There is also a mention that one side of the patient's mouth appears different, though the patient denies unilateral weakness, vision changes, or language problems. Related Data Home Medications ?Medication ?Instructions ?Recorded ?Confirmed acetaminophen 650 mg 650 mg PO Q8H PRN Pain 10/21/19 07/04/25 tablet,extended release (Arthritis Pain Relief (acetaminophen) ER) coenzyme Q10 10 mg capsule (Co 30 mg PO DAILY 10/21/19 07/04/25 Q-10) lisinopril 40 mg tablet 40 mg PO QAM 10/21/19 07/04/25 metoprolol succinate 200 mg 200 mg PO BEDTIME 10/21/19 07/04/25 tablet,extended release 24 hr nitroglycerin 0.4 mg sublingual 0.4 mg sublingual Q5M PRN Chest 10/21/19 07/04/25 tablet (Nitrostat) Pain saw palm 160 mg-vit E 100 1 tab PO DAILY 10/21/19 07/04/25 unit-selen 100 [id number] tablet (Prostate Health) tamsulosin 0.4 mg capsule (Flomax) 0.8 mg PO QPM 10/21/19 07/04/25 finasteride 5 mg tablet 5 mg PO BEDTIME 07/02/21 07/04/25 fluticasone propionate 50 2 spray intranasal DAILY 07/02/21 07/04/25 mcg/actuation nasal spray,suspension loratadine 10 mg tablet 10 mg PO DAILY 07/02/21 07/04/25 ascorbic acid (vitamin C) 1,000 mg 1 g PO DAILY 07/09/21 07/04/25 tablet diltiazem HCl 180 mg capsule,24 180 mg PO QAM 12/26/21 07/04/25 hr,extended release famotidine 20 mg tablet 20 mg PO BID 12/26/21 07/04/25 simvastatin 20 mg tablet 10 mg PO BEDTIME 12/26/21 07/04/25 levothyroxine 100 mcg tablet 100 mcg PO .qod 09/22/23 07/04/25 miconazole nitrate 2 % topical 1 spray topical TID TINEA 03/09/24 07/04/25 spray powder INFECTIONS hydralazine 100 mg tablet See Rx Instructions .Route .COMPLEX 05/04/24 07/04/25 apixaban 5 mg tablet (Eliquis) 2.5 mg PO BID 07/04/25 07/04/25 Previous Rx's ?Medication ?Instructions ?Recorded CPAP (Auto-Titrating CPAP) #1 ea 01/22/23 potassium chloride 10 mEq 10 meq PO DAILY #60 tabs 03/09/24 tablet,extended release albuterol sulfate 90 mcg/actuation 2 puff inhalation Q4H PRN 03/16/24 aerosol inhaler Shortness Of Breath #8.5 grams hydrocodone 10 mg-acetaminophen 1 tab PO Q6H PRN pain 20 days #80 10/11/24 325 mg tablet tabs furosemide 40 mg tablet (Lasix) 40 mg PO DAILY #60 tabs 12/14/24 mirtazapine 15 mg tablet 15 mg PO BEDTIME sleep #20 tabs 12/14/24 nirmatrelvir 300 mg (150 mg See Rx Instructions PO .COMPLEX 09/18/25 x2)-ritonavir 100 mg tablet,dose #30 ea pack (Paxlovid) Allergies Allergy/AdvReac Type Severity Reaction Status Date / Time Penicillins Allergy Rash Verified 09/17/25 23:53 [facility]: Medical History Renal cyst, left Hypoxia CHF exacerbation TATO on CPAP Chronic kidney disease Acute bronchitis History of nonmelanoma skin cancer Spinal stenosis at L4-L5 level Allergic rhinitis Osteoarthritis of left knee CVA (cerebral vascular accident) Hypertension Esophageal reflux ASHD (arteriosclerotic heart disease) Hearing loss DDD (degenerative disc disease) Depression Hyperlipidemia Atrial fibrillation Dementia Osteoarthritis Venous insufficiency Polyuria Benign prostatic hyperplasia with lower urinary tract symptoms Surgical History S/P cataract surgery S/P cholecystectomy Family History Mother , 88 Diabetes CAD (coronary artery disease) Father , 80 CAD (coronary artery disease), Onset Age: 40 Stroke Denies family history of Clotting disorder Dementia Chronic kidney disease (CKD) Suicide Anesthesia complication Bleeding disorder Lung disease Cancer Social History Smoking and tobacco/nicotine status: never used tobacco/nicotine Alcohol intake: never Substance/Drug Use: unknown Adopted: No Caregiver/support person: No Lives independently: No Household members: spouse Marital status: Current occupational status: retired Current gender identity: Male Physical Exam Const: COMMON NORMALS: alert GENERAL APPEARANCE: cooperative and frail appearing (mildly); not ill appearing ORIENTATION/CONSCIOUSNESS: Yes oriented to person, Yes oriented to place and Yes oriented to time HENMT: COMMON NORMALS: normocephalic, atraumatic and Normal external nose present HEAD & SCALP: normocephalic and atraumatic FACE & SINUS: normal facial exam and face symmetric NOSE: Normal external nose present Eye: COMMON NORMALS: Equal, round and reactive pupils present and EOMs intact bilaterally PUPIL: Yes Equal, round and reactive pupils present Neck/C-Spine: GENERAL: Yes trachea midline Chest: CHEST: Yes Symmetrical chest wall rise Resp: COMMON NORMALS: normal respiratory effort, No retractions, No use of accessory muscles and clear to auscultation bilaterally AUSCULTATION: clear to auscultation bilaterally Cardio: COMMON NORMALS: regular rate and regular rhythm RATE: regular rate RHYTHM: regular rhythm GI: COMMON NORMALS: Normal to inspection, nondistended, normoactive bowel sounds present Extremity: COMMON NORMALS: no pedal edema Neuro: MARIANELA COMA SCALE: document GCS findings Marianela coma scale eye opening: Spontaneous Marianela coma scale verbal response: Orientated [place] coma scale motor response: Obey commands Marianela coma scale total score: 15 SENSORIUM/ORIENTATION: Yes alert, Yes oriented to person, Yes oriented to place and Yes oriented to time CRANIAL NERVES: Yes CN normal except as noted COORDINATION/BALANCE: [id number] test normal and [id number] test normal SPEECH: speech normal SENSORY EXAM: Yes extremities (intact) MOTOR EXAM: Pronator motor function not present and No Tremors during motor activity present COORDINATION: [id number] test normal and qdra-eh-afft test normal Psych: COMMON NORMALS: speech normal SPEECH: Yes normal speech Skin: COMMON NORMALS: no rashes or lesions noted GENERAL SKIN EXAM: no rashes or lesions noted Course Vital Signs: Vital signs: Vital Signs Temperature 100.5 F H 09/17/25 23:48 Pulse Rate 91 09/18/25 02:34 Respiratory Rate 19 H 09/18/25 02:34 Blood Pressure 140/92 09/18/25 02:34 Pulse Oximetry 94 09/18/25 02:34 MDM - Weakness Medical Decision Making Patient has a temperature of 100.5. He was tachycardic on arrival. This is improved. He is given some fluid. CBC is normal. Creatinine is baseline at 2. Otherwise BMP is not remarkable. Chest x-ray shows a potential retrocardiac left basilar airspace desiccation. Head CT is negative. Urinalysis is negative. He is positive for COVID-19. Given his frailty, he will be given Paxlovid Lab Data 09/18/25 00:28 09/18/25 00:28 Radiology Impressions Chest X-Ray 09/18/25 00:14 IMPRESSION: Possible retrocardiac left basilar airspace opacification versus summation artifact. Head CT 09/18/25 01:19 IMPRESSION: 1. No acute intracranial hemorrhage. No midline shift or mass effect. 2. Encephalomalacia in the right frontal lobe, consistent with old infarct. Laboratory Results WBC 7.04 10^3/uL (3.29-11.43) 09/18/25 00:28 RBC 3.91 10^6/uL (3.85-5.65) 09/18/25 00:28 Hgb 11.50 g/dL (11.27-16.99) 09/18/25 00:28 Hct 35.4 % (37-53) L 09/18/25 00:28 MCV 90.5 fl (82-101) 09/18/25 00: MCH 29.4 pg (27-33) 09/18/25: MCHC 32.5 g/dL (30-55) 09/18/25: RDW 14.6 % (12.1-15.1) 09/18/25 00: Plt Count 182 10^3/cmm (157-399) 09/18/25: MPV 9.6 fL (7.4-10.4) 09/18/25: Neut % (Auto) 81.4 % 09/18/25 00: Lymph % (Auto) 7.1 % 09/18/25: [place] % (Auto) 10.8 % 09/18/25: Eos % (Auto) 0.1 % 09/18/25 00: Baso % (Auto) 0.3 % 09/18/25: Neut # (Auto) 5.73 10^3/uL (1.8-7.7) 09/18/25: Lymph # (Auto) 0.5 10^3/uL (0.8-4.8) L 09/18/25 00: [place] # (Auto) 0.8 10^3/uL (0.2-0.9) 09/18/25: Eos # (Auto) 0.0 10^3/uL (0.0-0.8) 09/18/25 00: Baso # (Auto) 0.0 10^3/uL (0.0-0.1) 09/18/25: Nucleated RBC % (auto) 0 % 09/18/25 Nucleated RBCs # 0.0 /100WBC 09/18/25 00: Sodium 137 mmol/L (136-145) 09/18/25: Potassium 4.4 mmol/L (3.5-5.1) 09/18/25: Chloride 103 mmol/L (98-107) 09/18/25 00: Carbon Dioxide 24 mmol/L (22-29) 09/18/25 00: Anion Gap 14.4 (5-19) 09/18/25: BUN 35 mg/dL (8-23) H 09/18/25: Creatinine 2.0 mg/dL (0.7-1.2) H 09/18/25: GFR Calculation Not Reportable 09/18/25: Glucose 123 mg/dL (65-115) H 09/18/25 00: Calculated Osmolality 293 mOsm/kg (285-295) 09/18/25: Lactic Acid 0.9 mmol/L (0.5-2.2) 09/18/25 Calcium 8.6 mg/dL (8.5-10.5) 09/18/25 Total Bilirubin 0.7 mg/dL (0.15-1.2) 09/18/25 AST 24 U/L (0-40) 09/18/25 ALT 11 U/L (0-41) 09/18/25 Alkaline Phosphatase 47 U/L (40-130) 09/18/25 C-Reactive Protein 20.9 mg/L (0.0-4.9) H 09/18/25: Total Protein 6.7 g/dL (6.6-8.7) 09/18/25: Albumin 3.9 g/dL (3.5-5.2) 09/18/25: Globulin 2.8 g/dL (1.3-4.6) 09/18/25 00:28 Urine Color Yellow (Yellow) 09/18/25 01:02 Urine Appearance Clear (CLEAR) 09/18/25 01:02 Urine pH 5.5 (5-7) 09/18/25 01:02 Ur Specific [place] 1.018 (1.005-1.030) 09/18/25 01:02 Urine Protein 1+ (Negative) A 09/18/25 01:02 Urine Glucose (UA) Negative (Normal) 09/18/25 01:02 Urine Ketones Negative (Negative) 09/18/25 01:02 Urine Blood Negative (Negative) 09/18/25 01:02 Urine Nitrate Negative (Negative) 09/18/25 01:02 Urine Bilirubin Negative (Negative) 09/18/25 01:02 Urine Urobilinogen 0.2 mg/dL (Negative) 09/18/25 01:02 Ur Leukocyte Esterase Negative (Negative) 09/18/25 01:02 Urine RBC 0-2 /hpf (0-2) 09/18/25 01:02 Urine WBC 0-5 /hpf (0-5) 09/18/25 01:02 Ur Squamous Epith Cells 0-5 /hpf (0-5) 09/18/25 01:02 Amorphous Sediment Not Reportable 09/18/25 01:02 Urine Bacteria None seen /hpf (NONE) 09/18/25 01:02 Hyaline Casts 0.40 /lpf 09/18/25 01:02 Influenza A (PCR) Negative (Negative) 09/18/25 00:23 Influenza Type B (PCR) Negative (Negative) 09/18/25 00:23 RSV (PCR) Negative (Negative) 09/18/25 00:23 SARS-CoV-2 (PCR) Positive (Negative) A 09/18/25 00:23 All radiology interpretation(s) finalized by discharge Discharge Plan Discharge Patient Disposition: Home Clinical Impression: COVID-19 Condition: Stable Prescriptions: New Paxlovid 300 mg (150 mg x 2)-100 mg tablets,dose pack See Rx Instructions .ROUTE .COMPLEX Qty: 30 0RF Rx Instructions: take TWO 150 mg tablets of nirmatrelvir with ONE 100 mg tablet of ritonavir twice daily for 5 days No Action coenzyme Q10 [Co Q-10] 10 mg capsule 30 mg PO DAILY acetaminophen [Arthritis Pain Relief (acetam)] 650 mg tablet extended release 650 mg PO Q8H PRN (Reason: Pain) tamsulosin [Flomax] 0.4 mg capsule 0.8 mg PO QPM lisinopril 40 mg tablet 40 mg PO QAM metoprolol succinate 200 mg tablet extended release 24 hr 200 mg PO BEDTIME nitroglycerin [Nitrostat] 0.4 mg tablet, sublingual 0.4 mg SUBLINGUAL Q5M PRN (Reason: Chest Pain) Prostate Health 160-100-100 mg-unit-mcg tablet 1 tab PO DAILY ascorbic acid (vitamin C) 1,000 mg tablet 1 g PO DAILY Eliquis 5 mg tablet 2.5 mg PO BID loratadine 10 mg tablet 10 mg PO DAILY fluticasone propionate 50 mcg/actuation spray,suspension 2 spray intranasal DAILY finasteride 5 mg tablet 5 mg PO BEDTIME levothyroxine 100 mcg tablet 100 mcg PO .qod albuterol sulfate 90 mcg/actuation HFA aerosol inhaler 2 puff INHALATION Q4H PRN (Reason: Shortness Of Breath) Qty: 8.5 1RF Lasix 40 mg tablet 40 mg PO DAILY Qty: 60 4RF mirtazapine 15 mg tablet 15 mg PO BEDTIME Qty: 20 0RF (DME) Auto-Titrating CPAP Device See Rx Instructions .Route Qty: 1 0RF Rx Instructions: 5 to 12 cm hydrocodone-acetaminophen 10-325 mg tablet 1 tab PO Q6H PRN (Reason: pain) 20 Days Qty: 80 0RF miconazole nitrate 2 % Aerosol Powder 1 spray TOPICAL TID potassium chloride 10 mEq tablet extended release 10 meq PO DAILY Qty: 60 0RF Rx Instructions: Only take it with Lasix hydralazine 100 mg tablet See Rx Instructions .ROUTE .COMPLEX Rx Instructions: TAKE 1/2 TABLET BY MOUTH twice daily diltiazem HCl 180 mg capsule,extended release 24 hr 180 mg PO QAM famotidine 20 mg tablet 20 mg PO BID simvastatin 20 mg tablet 10 mg PO BEDTIME Discharge Orders: Discharge ED (Routine); Ordered 09/18/25 Ordered By: Edenilson Pinto Referrals: Candace Ace MD [Primary Care Provider, Family Practice] - 1-3 days Patient Instructions: COVID-19 (Coronavirus Disease 2019) (ED), Opioid Safety, Pain Management, Patient Portal & [facility] Instructions Activity Restrictions/Additional Instructions: Medication as directed. Watch for fever, and treat accordingly with Tylenol. Stay hydrated. Return for any problems. Follow-up with your doctor. Print Language: [place] Coding Level of Care Code ED Business Intelligence Architect for Bibi Montano
[2025-09-18 00:49] VITALS: BP 143/88; PULSE 90; RESP 17; O2SAT 96
[2025-09-18 00:49] LABS: Hematocrit 35.4 % (37-53); Hemoglobin 11.50 g/dL (11.27-16.99); Mean Corpuscular HGB Conc 32.5 g/dL (30-55); Mean Corpuscular Hemoglobin 29.4 pg (27-33); Mean Corpuscular Volume 90.5 fl (82-101); Nucleated Red Blood Cells % 0 %; Platelet Count 182 10^3/cmm (157-399); Red Blood Count 3.91 10^6/uL (3.85-5.65); White Blood Count 7.04 10^3/uL (3.29-11.43)
[2025-09-18 00:59] LABS: Lactic Sepsis W/Reflex 0.9 mmol/L (0.5-2.2)
[2025-09-18 01:00] VITALS: BP 155/93; PULSE 89; RESP 17; O2SAT 97
[2025-09-18 01:00] LABS: Alanine Aminotransferase 11 U/L (0-41); Albumin Level 3.9 g/dL (3.5-5.2); Alkaline Phosphatase 47 U/L (40-130); Anion Gap 14.4 (5-19); Aspartate Amino Transferase 24 U/L (0-40); Blood Urea Nitrogen 35 mg/dL (8-23); Calcium 8.6 mg/dL (8.5-10.5); Carbon Dioxide 24 mmol/L (22-29); Chloride 103 mmol/L (98-107); Globulin 2.8 g/dL (1.3-4.6); Glucose 123 mg/dL (65-115); Osmolality Calculated 293 mOsm/kg (285-295); Potassium 4.4 mmol/L (3.5-5.1); Sodium 137 mmol/L (136-145); Total Protein 6.7 g/dL (6.6-8.7)
[2025-09-18 01:05] LABS: Glucose Urine UA Negative (Normal); Nitrate Urine Negative (Negative); Specific Gravity, Urine 1.018 (1.005-1.030)
[2025-09-18 01:10] LABS: Add Urine Microscopic? YES
[2025-09-18 01:15] LABS: Respiratory Syncytial Virus Ce NEGATIVE (Negative)
--- NOTE | 2025-09-18 01:19 | CTR_ITS ---
PROCEDURE INFORMATION: Exam: CT Head Without Contrast Exam date and time: 09/18/2025 1:29 AM Age: 80 years old Clinical indication: Fever and other: General weakness; Fever with general weakness. History of CVA and dementia. TECHNIQUE: Imaging protocol: Computed tomography of the head without contrast. Radiation optimization: All CT scans at this facility use at least one of these dose optimization techniques: automated exposure control; mA and/or kV adjustment per patient size (includes targeted exams where dose is matched to clinical indication); or iterative reconstruction. COMPARISON: No relevant prior studies available. RADIATION DOSE METRICS: Total DLP (mGy-cm): 928.68 FINDINGS: Brain: No acute intracranial hemorrhage. No midline shift or mass effect. No acute territorial infarct. Global age-related cerebral atrophy. Chronic, age related microangiopathy, consistent periventricular and subcortical white matter hypoattenuation. Encephalomalacia in the right frontal lobe, consistent with old infarct. Cerebral ventricles: No ventriculomegaly. Paranasal sinuses: Visualized sinuses are unremarkable. No fluid levels. Mastoid air cells: Visualized mastoid air cells are well aerated. Bones: Unremarkable. No acute fracture. Soft tissues: Unremarkable. CT/CT head wo con* [id number] IMPRESSION: 1. No acute intracranial hemorrhage. No midline shift or mass effect. 2. Encephalomalacia in the right frontal lobe, consistent with old infarct.
[2025-09-18 01:24] LABS: SARS-CoV-2 PCR Positive (Negative)
--- NOTE | 2025-09-18 01:25 | PC.NURSE ---
lab called with critical patient is covid positive dr. suazo notified
[2025-09-18 02:03] VITALS: PULSE 92; RESP 17; O2SAT 93
--- NOTE | 2025-09-18 02:07 | PC.NURSE ---
patient ambulated with the nurse and cane down the hallway half way and back with no increased shortness of breath or weakness
[2025-09-18 02:34] VITALS: BP 140/92; PULSE 91; RESP 19; O2SAT 94
== END 2025-09-18 02:35 | disposition home or self-care (01) ==
PROVIDERS: Emergency Provider Emergency Medicine; PCP Family Medicine
DX: U07.1 COVID-19 (principal); Z11.52 Encounter for screening for COVID-19; Z79.01 Long term (current) use of anticoagulants; Z86.73 Personal history of transient ischemic attack (TIA), and cerebral infarction without residual deficits; E78.5 Hyperlipidemia, unspecified; I12.9 Hypertensive chronic kidney disease with stage 1 through stage 4 chronic kidney disease, or unspecified chronic kidney disease; N18.9 Chronic kidney disease, unspecified; Z85.828 Personal history of other malignant neoplasm of skin
CPT/HCPCS: 36415; 70450; 71045; 80053; 81001; 83605; 85025; 86140; 87040; 87637; 96360; 99284; J7030; J9999

== ENCOUNTER → 2025-10-03 15:01 | Outpatient (BNVA) | payer MEDICARE, OTHER, SELFPAY | PROVIDERS: PCP Family Medicine; Visit Provider Podiatrist Foot & Ankle Surgery | DX: I73.9 Peripheral vascular disease, unspecified (principal); B35.1 Tinea unguium; L84 Corns and callosities; R60.9 Edema, unspecified | CPT/HCPCS: 11056; 11721 ==